=== PATIENT | male | born 1960 | race Caucasian/White ===

== ENCOUNTER 2024-01-28 17:31 | Inpatient (IN) | payer OTHER, SELFPAY ==
[2024-01-28] VITALS (24 sets, daily range): BP systolic 106–147; BP diastolic 67–107; BMI 25.8; BMI 27.0
[2024-01-28] MEDS: ADENOCARD 6 MG IV (12:09)
[2024-01-28] MEDS: CARDIZEM 20 MG IV (12:19)
--- NOTE | 2024-01-28 12:19 | ED.GENMED ---
History of Present Illness
General
Chief Complaint: Cold/Flu/URI Symptoms
Source: patient
Time Seen by Provider: 01/28/24 11:57
Travel History
Have you had any contact with someone who has COVID-19?: No
Do you have any symptoms of coronavirus? Fever > 100 degrees, chills, cough, shortness of breath, sore throat, loss of taste or smell, muscle aches, or headache?: No
History of Present Illness
History of Present Illness:
This patient is a 63-year-old male presents emergency department with complaints of cough. He developed URI symptoms a week or so ago, was put on a Z-Mauricio and inhaler on January 14 and then transition to amoxicillin which she took for 7 days, his last
dose being today. He tested positive for COVID on January 18. He continues to report a dry cough which at times makes him feel like he might pass out. He developed subjective fevers last night but not today. He notes chest discomfort only while
actually coughing. He is not actively short of breath. He denies nausea, vomiting, leg swelling, abdominal pain, back pain, headache, dizziness, or other complaints. He denies palpitations.
Past History
Past History
ED Past Medical History: HTN and Hypercholesterolemia
Social History
Tobacco: Non-smoker
Alcohol: Occasional
Drug: None
Personal:
Living: with family
Phy Exam
Physical Exam
Physical Exam:
GENERAL: Alert , in no apparent distress
EYE: pupils equal and reactive
NECK: Supple, no significant adenopathy.
ENT: o/p clr, mmm.
CARDIAC: Regular rate and rhythm, tachycardic.
LUNGS: Equal breath sounds bilaterally, no acute respiratory distress, obvious dry cough noted, speaks in full sentences easily, scattered wheezing
ABDOMEN: Soft, without focal tenderness, no r/g, no cvat
NEUROLOGICAL: Alert and oriented, no focal neuro deficits
SKIN: Warm and dry, skin intact.
MUSCULOSKELETAL: No edema, well perfused.
PSYCH: Normal and appropriate interaction.
Scores
[id number] Score for Afib Stroke Risk
Age in Years (65=0, 65-74=1, >/=75=2): <65
Sex (Female=+1): Male
Congestive Heart Failure History (Yes=+1): No
Hypertension History (Yes=+1): Yes
Stroke/TIA/Thromboembolism History (Yes=+2): No
Vascular Disease History (Yes=+1): No
Diabetes Mellitus (Yes=+1): No
Score: 1
Anticoagulation Recommendations: Consider anticoagulation (as validated in nonvalvular fib)
Course
Orders/Labs/Results
Orders:
Orders
01/28/24 11:43
Electrocardiogram (*1) Urgent
Reason for Study: Tachycardia
EKG- Treatment ONCE
01/28/24 12:06
Adenosine [Adenocard] 12 mg .ROUTE .STK-MED ONE
01/28/24 12:09
Adenosine [Adenocard] 6 mg IV NOW STA
01/28/24 12:11
Diltiazem HCl [Cardizem] 25 mg .ROUTE .STK-MED ONE
01/28/24 12:12
Diltiazem 125 mg/125 ml Nss [Cardizem] 125 mg in 125 ml .ROUTE .STK-MED
01/28/24 12:16
Cardiac Monitoring- Treatment ONCE
Diltiazem 125 mg/125 ml Nss [Cardizem] 125 mg in 125 ml IV NOW
Initial dose in mg/hr, then titrate:: 5
Titrate to keep:: Heart rate 80-100 bpm
Titrate by mg/hr:: 5 mg/hr
Frequency of titrations (minutes):: 15
Maximum dose in mg/hr:: 15
Diltiazem HCl [Cardizem] 20 mg IV NOW STA
CR Chest - 2 Views Urgent
Comment:
Reason For Exam: COUGH
Pulse Ox/cont/shift [RESP] Urgent
Quantity: 1
01/28/24 12:18
Complete Blood Count/With Diff Urgent
Comprehensive Metabolic Panel Urgent
Troponin I Urgent
01/28/24 12:23
COVID-19 Antigen Stat
Source: Nasal Swab
Lactic Acid Q4H
Comment: CANCEL 2nd LACTIC ACID IF 1st LACTIC ACID IS LESS THAN 2
Blood Culture Q30M
BLANCA Source: Blood/Venous
Specimen Description:
Influenza A+B Rapid Molecular Urgent
BLANCA Source: Nasal Swab
Specimen Description:
01/28/24 12:55
Blood Culture Q30M
BLANCA Source: Blood/Venous
Specimen Description:
01/28/24 14:01
Urinalysis Reflex To Culture Urgent
Date Specimen was Collected: 01/28/24
Time Specimen was Collected: 14:00
01/28/24 14:59
Heparin 4,000 units IV NOW STA
Nursing to Place Non Medication Order As Directed
Physician Order: PTT 6 hours after initial start of Heparin infusion
Above order entered?: Yes
01/28/24 Dinner
Cholesterol Lowering
At Your Request: Full Participation
Cholesterol Lowering: Sodium, 2 Gram
Heparin 42326 Units/250 ml 25,000 units in 250 ml IV PER PROTOCOL
Weight to be used for heparin protocol in kilograms (kg):: 81.647
Protocol:: Cardiac Tx/Acute Coronary
PTT Goal Range to be used:: PTT 73 to 111 seconds
Order type:: Initial
INITIAL Infusion Dose (UNITS/KG/hr) & then follow protocol:: 15 units/kg/hr
Infusion Dose in UNITS/hr & then follow protocol (UNITS/hr):: 1,250
INFUSION RATE in mL/hr & then follow protocol (mL/hr):: 12.5
PTT less than or equal to 64 seconds:: Increase rate by 200 units/hr (+ 2 mL/hr)
PTT 64.1 to 72.9 seconds:: Increase rate by 100 units/hr (+ 1 mL/hr)
PTT 73 to 111 seconds:: Target Range. No change in rate.
PTT 111.1 to 130.9 seconds:: Decrease rate by 100 units/hr (- 1 mL/hr)
PTT 131 to 199.9 seconds:: HOLD for 1 hr. Then decrease rate by 200 units/hr (- 2 mL/hr)
PTT greater than or equal to 200 seconds:: HOLD for 2 hrs & Notify Provider. Then decrease by 200 units/hr (-
2 mL/hr)
Lab follow-up:: Each change, PTT q6h until 2 consecutive are therapeutic. Then PTT
daily.
01/28/24 15:04
PTT Urgent
Comment: Obtain baseline before beginning heparin infusion if not already collected
01/28/24 16:36
Admit/Transfer Patient As Directed
Co-Sign Provider:
Level of Care: Inpatient admission
Assign to:: IMU- Intermediate Care
Physician / Group: Hospitalist
Diagnosis: A-flutter
Reason for Hospitalization: A-flutter - on dilt gtt.
Expected length of stay greater than two midnights?: Yes
ELOS- Estimated Length of Stay in days: 3
I certify the patient meets the requirements for IP care: Yes
01/28/24 16:37
Code Status As Directed
Resuscitation Status: Full Code
01/28/24 19:35
promethazine-DM 5 ml PO QIDPRN PRN
01/28/24 19:40
Ibuprofen [Motrin] 600 mg PO Q6H PRN
01/28/24 21:38
Electrocardiogram (*1) Q6H
Reason for Study: Chest Pain
Comment: at admission and Q3H for total of 3, to be done with each troponin
Albuterol [ProAIR HFA INHALER] 2 puff INH R Q6HPRN PRN
Diltiazem 125 mg/125 ml Nss [Cardizem] 125 mg in 125 ml IV PER PROTOCOL
Currently infusing. Continue current dose and titrate:: Yes
Titrate to keep:: Heart rate 80-100 bpm
Titrate by mg/hr:: 5 mg/hr
Frequency of titrations (minutes):: 15
Maximum dose in mg/hr:: 15
01/28/24 21:38
CARDIOLOGY CONSULT Routine
Consulting Provider: Miko Li
Was physician already notified: Yes
Reason for consult: a-flutter needing heparin and dilt gtt.
Heparin Protocol- PTT Orders As Directed
PTT per Heparin protocol: -Obtain CBC and baseline PTT - if not already collected.
-Obtain PTT 6 hours from start of infusion. Then, every 6 hours until 2 consecutive
PTT's are therapeutic. Then, PTT Daily.
-With each rate change, obtain PTT every 6 hours until 2 consecutive PTT's are
therapeutic. Then, PTT Daily.
Activity As Directed
Activity Level: With Assistance
INT (Intravenous Needle Therapy) As Directed
Comment: maintain peripheral IV access
Intake/ Output As Directed
Frequency: Per unit guidelines
Notify MD As Directed
Notify physician if: PTT is greater than or equal to 200.
Pneumatic Compression Sleeves As Directed
Type: Knee high
Vital Signs As Directed
Frequency: q4h
Weight As Directed
Frequency: Daily
DX Deep Vein Thrombosis Video Routine
01/28/24 22:00
Amlodipine [Norvasc] 5 mg PO HS
01/28/24 22:05
Glycohemoglobin (HgbA1c) Routine
PTT Urgent
Troponin I Q3H
Comment: at admit & Q3H for 3 total including ED draws, obtain ECG with each level
01/29/24 00:49
Troponin I Q3H
Comment: at admit & Q3H for 3 total including ED draws, obtain ECG with each level
01/29/24 03:38
Electrocardiogram (*1) Q6H
Reason for Study: Chest Pain
Comment: at admission and Q3H for total of 3, to be done with each troponin
01/29/24 04:02
Basic Metabolic Panel IN AM
Cardiovascular Evaluation IN AM
Complete Blood Count/No Diff IN AM
Troponin I Q3H
Comment: at admit & Q3H for 3 total including ED draws, obtain ECG with each level
01/29/24 08:00
Atorvastatin [Lipitor] 40 mg PO DAILY
01/30/24 03:41
Complete Blood Count/No Diff Q2D
Comment: notify provider: Platelet count < 130,000 or decrease by 50% from baseline
02/01/24 06:00
Complete Blood Count/No Diff Q2D
Comment: notify provider: Platelet count < 130,000 or decrease by 50% from baseline
02/03/24 06:00
Complete Blood Count/No Diff Q2D
Comment: notify provider: Platelet count < 130,000 or decrease by 50% from baseline
02/05/24 06:00
Complete Blood Count/No Diff Q2D
Comment: notify provider: Platelet count < 130,000 or decrease by 50% from baseline
02/07/24 06:00
Complete Blood Count/No Diff Q2D
Comment: notify provider: Platelet count < 130,000 or decrease by 50% from baseline
02/09/24 06:00
Complete Blood Count/No Diff Q2D
Comment: notify provider: Platelet count < 130,000 or decrease by 50% from baseline
02/11/24 06:00
Complete Blood Count/No Diff Q2D
Comment: notify provider: Platelet count < 130,000 or decrease by 50% from baseline
02/13/24 06:00
Complete Blood Count/No Diff Q2D
Comment: notify provider: Platelet count < 130,000 or decrease by 50% from baseline
Abnormal Lab Results
01/28/24
12:18
MCH 31.2 H pg
(27.0-31.0)
Absolute Monos (auto) 0.7 H 10^3/uL
(0.1-0.6)
Lymphocytes % 19.4 L %
(20.5-51.1)
Monocytes % 10.2 H %
(1.7-9.3)
Eosinophils % 7.7 H %
(0-6)
Chloride 110 H mmol/L
(98-107)
Glucose 112 H mg/dl
(70-99)
01/28/24 12:18
01/28/24 12:18
Vital Signs
Initial and Last Documented VS:
Initial Vital Signs
Temp Pulse Resp BP Pulse Ox
97.9 F 145 20 135/104 98
01/28/24 11:39 01/28/24 11:39 01/28/24 11:39 01/28/24 11:39 01/28/24 11:39
Last Documented Vital Signs
Temp Pulse Resp BP Pulse Ox
98.1 F 78 28 129/90 98
01/30/24 07:43 01/30/24 09:13 01/30/24 06:08 01/30/24 09:13 01/29/24 22:49
*Critical Care Note
Total Time (30-74mins, 75-104mins- exclusive of procedures): 35
Update Note
Update Note:
Patient presents to the Emergency Department with cough
Number and Complexity of Problems Addressed at the Encounter
� Chronic conditions affecting care:
� Acute Exacerbation and/or Progression of Chronic Illness:
� Differential Diagnosis includes: But not limited to pertussis, bronchitis, pneumonia, etc.
Amount and/or Complexity of Data to be Reviewed and Analyzed
� I performed an independent evaluation of and my interpretation is:
EKG: Tachycardic, a flutter with suspected 2-1 conduction, no acute ischemia
CT:
Xrays:
Laboratory Studies: Generally unremarkable, troponin within normal limits
Other:
� Review of other/old records reveals:
� Clinical information was obtained by an independent historian:
� Prescriptions/Medications Considered but not given:
� Further testing considered but not performed:
Risk of Complications and/or Morbidity or Mortality of Patient Management
� Social determinants of health affecting care:
� Discussion with other providers (PCP, Hospitalists, Consultants, etc): Discussed with Dr. Jama estrada
� Escalation of care including admission/observation vs risk of discharge considered: Patient given a dose of adenosine 6 mg, rhythm underlying is clearly a flutter, will begin Cardizem drip while initiating workup.
3 PM reassessment patient feeling better, interestingly his cough has resolved since we have obtain rate control with Cardizem drip. Heart rate now in the low 100s. Given [id number] is 1, will start anticoagulation here and admit to hospitalist,
[place] text sent
ED Attending Note
-
Portions of this chart may have been created with voice recognition software.� Occasional wrong word or��sound alike� substitutions may have occurred due to the inherent limitations of voice recognition software.
Discharge Plan
Departure
Patient Disposition: Admit
Date of Disposition: 01/28/24
Time of Disposition: 14:58
Presentation/result/management discussed w/ accepting MD/DO: Hospitalist
Condition: Fair
Discharge Problem:
Atrial flutter, Cough
Interventions
Interventions:
*Risk Screen - Suicide Last Done: 01/28/24 21:48
*General Assessment Last Done: 01/28/24 12:00
*Neglect/Abuse Screening Last Done: 01/28/24 12:00
ED- Fall Risk Assessment Last Done: 01/28/24 12:00
*ED COVID-19 Vaccine History Last Done: 01/28/24 21:48
*Nursing Disposition Last Done: 01/28/24 21:47
ED- Pulmonary Assessment Last Done: 01/28/24 12:16
Discharge Date and Time
Discharge Date/Time: 01/28/24 21:47
[2024-01-28] MEDS: CARDIZEM 125 IV (12:20)
[2024-01-28 12:29] LABS: % Basophils 0.9 % (0-2); % Eosinophils 7.7 % (0-6); % Immature Granulocytes 0.3 % (0-0.5); % Lymphocytes 19.4 % (20.5-51.1); % Monocytes 10.2 % (1.7-9.3); % Neutrophils 61.5 % (42.2-75.2); Absolute Basophils 0.1 10^3/uL (0-0.2); Absolute Eosinophils 0.5 10^3/uL (0-0.7); Absolute Lymphocytes 1.3 10^3/uL (1.2-3.4); Absolute Monocytes 0.7 10^3/uL (0.1-0.6); Absolute Neutrophils 4.2 10^3/uL (1.4-6.5); Hemoglobin 15.3 g/dL (13.0-18.0); Mean Corp Hgb Conc. 35.6 g/dL (33.0-37.0); Mean Corpuscular Hgb 31.2 pg (27.0-31.0); Mean Corpuscular Volume 87.8 fL (80.0-94.0); Nucleated Red Blood Cells % 0 % (-); Platelet Count 256 10^3/uL (130-400); Red Cell Dist. Width 12.2 % (11.5-14.5); White Blood Cell Count 6.8 10^3/uL (4.8-10.8)
[2024-01-28 12:54] LABS: Troponin I < 0.012 ng/ml
[2024-01-28 12:57] LABS: Lactic Acid 1.5 mmol/L (0.7-2.0)
[2024-01-28 13:05] LABS: COVID-19 Antigen Negative (Negative)
[2024-01-28 13:05] LABS: ALT (SGPT) 28 U/L (0-50); AST (SGOT) 22 U/L (17-59); Albumin 4.1 g/dl (3.5-5.0); Alkaline Phosphatase 122 U/L (38-126); Blood Urea Nitrogen 16 mg/dl (9-20); Calcium 9.5 mg/dl (8.4-10.2); Carbon Dioxide 22 mmol/L (22-30); Chloride 110 mmol/L (98-107); Estimated Creatinine Clearance 87 ml/min; Glucose 112 mg/dl (70-99); Potassium 4.2 mmol/L (3.5-5.1); Sodium 142 mmol/L (135-145); Total Bilirubin 0.7 mg/dl (0.2-1.3); Total Protein 7.2 g/dl (6.3-8.2); eGFR > 60.00
[2024-01-28 14:17] LABS: Urine Albumin Negative (Neg - Trace); Urine Bilirubin Negative (Negative); Urine Character Clear (Clear); Urine Color Yellow; Urine Glucose Negative (Negative); Urine Ketone Negative (Negative); Urine Leukocyte Negative (Negative); Urine Nitrite Negative (Negative); Urine Occult Blood Negative (Negative); Urine Specific Gravity 1.015 (<1.030); Urine Urobilinogen Negative (Neg - 1+)
[2024-01-28 15:19] LABS: APTT 28.7 Sec (23.4-35.0)
[2024-01-28] MEDS: HEPARIN 25000 UNITS/250 ML IV (15:25)
[2024-01-28] MEDS: HEPARIN 4000 UNITS IV (15:25)
--- NOTE | 2024-01-28 16:25 | HPS.HSE ---
Family Physician
-
Family Physician: Lito Johnson
Chief Complaint
-
Cough
History of Present Illness
63-year-old man comes in with a cough. He developed URI symptoms a week ago. He was put on a Z-Mauricio and inhaler, and then transitioned to amoxicillin which he took for 7 days. His last dose was today. He tested positive for COVID on January 18. His
dry cough has worsened and at times it makes him feel like he might pass out. He has chest discomfort only while coughing. No active shortness of breath and he denies nausea, vomiting, leg swelling, abdominal pain, back pain, headache, dizziness,
or other complaints. He denies palpitations. At the time of my interview, his rate had been slowed to ~100, and his cough had resolved. His diltiazem gtt was titrated a few times.
Medical History
Past Medical History
Past Medical History: Reports Other
Additional Past Medical History:
Essential HTN
Hypercholesterolemia
Past Surgical History: Reports None
Social History
Tobacco: Non-smoker
Alcohol: None
Drug: None
Family History
Family History: Not pertinent
Allergies / Home Medications
Allergies reflects when Allergies were last updated in [facility].
Home Medications with original date entered in [facility]
Allergy/Medication List:
Allergies
Allergy/AdvReac Type Severity Reaction Status Date / Time
No Known Allergies Allergy Verified 01/28/24 11:38
Home Medications
atorvastatin 40 mg tablet (Lipitor) 40 mg PO DAILY 07/05/08
albuterol sulfate 90 mcg/actuation aerosol inhaler (Ventolin HFA) 2 puff inhalation R Q6HPRN PRN sob/wheezing 01/28/24
amlodipine 5 mg tablet 5 mg PO HS 01/28/24
amoxicillin 875 mg-potassium clavulanate 125 mg tablet 1 tab PO BID 01/28/24
ibuprofen 200 mg capsule 600 mg PO Q6H PRN mild pain/fever 01/28/24
promethazine-DM 6.25 mg-15 mg/5 mL oral syrup 5 ml PO QIDPRN PRN cough 01/28/24
Review of Systems
-
History Source: Patient
A 12 point ROS was completed and negative except as noted: Yes
Physical Exam
Vital Signs
Vital Signs
Temp Pulse Resp BP Pulse Ox
97.9 F 73 22 125/82 94
01/28/24 11:39 01/28/24 16:00 01/28/24 16:00 01/28/24 16:00 01/28/24 16:00
Physical Exam
General: Well Developed, Well Nourished, No Apparent Distress, Comfortable and Conversant
HEENT: NormoCephalic, Nose Appears Normal and Ears Appear Normal
Respiratory: Clear
Cardiac: S1/S2 and Irregular Rhythm
GI: Soft
Skin: Warm and Dry; No Rash or Jaundice
Neuro: Awake, Alert, Oriented and AO x 3
Psych: Calm
Laboratory Results
-
01/28/24 12:18
01/28/24 12:18
Laboratory Results
APTT 28.7 Sec (23.4-35.0) 01/28/24 15:04
Lactic Acid Cancelled 01/28/24 16:30
Total Bilirubin 0.7 mg/dl (0.2-1.3) 01/28/24 12:18
AST 22 U/L (17-59) 01/28/24 12:18
ALT 28 U/L (0-50) 01/28/24 12:18
Alkaline Phosphatase 122 U/L (38-126) 01/28/24 12:18
Troponin I < 0.012 ng/ml 01/28/24 12:18
Data Reviewed
-
Lab Data: Labs Reviewed by me
Impression/Plan
-
IMPRESSION:
63 man with aflutter, rate of 150, now with rate of 100 on a diltiazem gtt. Cough resolved. CXR does not show failure or obvious PNA.
PLAN:
1. Aflutter. New issue, may have been cause of the cough
Continue dilt gtt - titrate as needed - thus IMU admit (or equivalent level)
Continue heparin gtt
Cardiology consult
Trend troponins
2. Recent diagnosis of covid - now covid neg (tested today)
No longer infectious
No further needs for antibiotics or covid specific care
3. Essential HTN and Hyperlipidemia
Continue home meds
Full code
VCD for DVTp
[2024-01-28] MEDS: MOTRIN 600 MG PO (20:09)
--- NOTE | 2024-01-28 20:11 | EDRN ---
RN in room to check on pt. Tele monitor shows NSR. EKG done to confirm NSR. Dr. La notified. Continue Heparin IV and Cardizem IV for now per MD. Cardizem decreased to 5mg per MD. Pt and spouse advised of above. Will continue to monitor.
[2024-01-28 22:25] LABS: APTT 54.4 Sec (23.4-35.0)
--- NOTE | 2024-01-28 22:28 | PTCARENOTE ---
Received pt from ED RN. Pt is AAOx3. NSR on the monitor. On RA O2 sat 94%, lungs clear, occ nonproductive cough. Pt uses the urinal, BRPx1. Abd round/obese/firm. Pt came up on a Cardizem gtt @ 5 mg/hr and Heparin gtt @ 1250 units/hr. Pt is laying
comfortable in bed with call hutchison in reach.
[2024-01-28 22:42] LABS: Troponin I < 0.012 ng/ml
[2024-01-28] MEDS: NORVASC 5 MG PO (22:53)
[2024-01-29] VITALS (10 sets, daily range): BP systolic 121–157; BP diastolic 77–96; BMI 27.1
[2024-01-29] MEDS: CARDIZEM 125 IV (00:49)
[2024-01-29 01:23] LABS: Troponin I < 0.012 ng/ml
[2024-01-29] MEDS: ROBITUSSIN DM 10 ML PO ×2 (03:40→21:29)
[2024-01-29 04:18] LABS: Hematocrit 40.4 % (39.0-52.0); Hemoglobin 14.6 g/dL (13.0-18.0); Mean Corp Hgb Conc. 36.1 g/dL (33.0-37.0); Mean Corpuscular Hgb 31.2 pg (27.0-31.0); Mean Corpuscular Volume 86.3 fL (80.0-94.0); Platelet Count 247 10^3/uL (130-400); Red Blood Cell Count 4.68 10^6/uL (4.70-6.10); Red Cell Dist. Width 12.1 % (11.5-14.5); White Blood Cell Count 8.1 10^3/uL (4.8-10.8)
[2024-01-29 04:33] LABS: APTT 57.3 Sec (23.4-35.0)
[2024-01-29 04:40] LABS: Blood Urea Nitrogen 13 mg/dl (9-20); Calcium 9.4 mg/dl (8.4-10.2); Carbon Dioxide 20 mmol/L (22-30); Chloride 109 mmol/L (98-107); Estimated Creatinine Clearance 98 ml/min; Glucose 112 mg/dl (70-99); HDL Cholesterol 42 mg/dl; LDL Cholesterol, Calculated 126 mg/dl; Potassium 3.9 mmol/L (3.5-5.1); Sodium 139 mmol/L (135-145); Total Cholesterol 199 mg/dl (50-199); Triglyceride 155 mg/dl (10-149); Very Low Density Lipoprotein 31 mg/dl (0-30); eGFR > 60.00
[2024-01-29 04:53] LABS: Troponin I < 0.012 ng/ml
--- NOTE | 2024-01-29 09:34 | CON.CAR ---
Addendum entered and electronically signed by Nakul Velarde MD 01/29/24 11:57:
I saw and examined the patient.
The PBX WIRE CHIEF or PA's note was reviewed and I agree with the note.
Comment: General: Well developed, well nourished in NAD.
Neck: Supple, no JVD, HJR, carotids +2 B/L, no bruits bilaterally.
Heart: Non displaced PMI, RRR, no murmurs, No S3, S4, no rubs.
Lungs: Clear to auscultation bilaterally, no wheeze, rhonchi, rubs bilaterally,
normal expiratory phase.
Abdomen: Normal bowel sounds, soft, non-tender, non-distended.
Extremities: No clubbing, cyanosis or edema bilaterally.
Neuro: Grossly nonfocal, awake, alert and oriented x3.
Ravi has a history of hypertension hyperlipidemia. He presented with cough. He recently tested positive for COVID and was on a Z-Mauricio then transition to amoxicillin. He presented with worsening cough and found to be in atrial flutter in the
140s to 150s. Of note he denies any chest pain, short of breath, or palpitations. He has spontaneously converted to sinus rhythm.
Will stop IV Cardizem and start Toprol-XL 25 mg daily. Will assess cost of Eliquis. His CHADS2 score is 1 and perhaps could stop Eliquis at some point. May consider outpatient ablation with high cure rate of atrial flutter and patient desire to
come off anticoagulation. Etiology of cough unclear and there is no obvious CHF. Will check BNP.
Original Note:
Consultation
Consultation Request
Date/Time Consultation Requested: 01/29/2024
Date/Time Consultation Performed: 01/29/2024
Requesting Provider: Dr. La
Performing Provider: Dr. Velarde
Reason for Consultation: Atrial Flutter
Medical History
-
History of Present Illness:
HPI: Ravi is a 63 year old male with PMH of hypertension and hyperlipidemia who presented to [facility] for evaluation of cough. He initially developed URI symptoms approximately one week ago and tested + for Covid 01/18. He was later put on a Z mauricio
which was then transitioned to amoxicillin. He continued to have dry cough and at times had coughing fits where he felt as though he may pass out. During these episodes of coughing, patient did note chest discomfort, however has had no pain when not
actively coughing. On arrival to ER, he was in rapid atrial flutter with HR in the 140s to 150s. He was started on cardizem gtt and spontaneously converted to SR. He remains in sinus rhythm on review of telemetry at this time. Cardiology consulted
given new atrial flutter. Cough remains his main complaint.
PMH:
HTN
HLD
Past Medical History
Past Medical History: Other (In HPI)
Social History
Tobacco: Non-Smoker
Alcohol: None
Drug: None
Personal:
Living: With Family
Employment: Employed
Family History
Family History: Reviewed & Not Pertinent
Allergies / Home Medications
Allergy/AdvReac Type Severity Reaction Status Date / Time
No Known Allergies Allergy Verified 01/28/24 11:38
�Medication �Instructions �Recorded �Confirmed �Type
atorvastatin 40 mg tablet (Lipitor) 40 mg PO DAILY High Cholesterol 07/05/08 01/28/24 History
albuterol sulfate 90 mcg/actuation 2 puff inhalation R Q6HPRN PRN 01/28/24 01/28/24 History
aerosol inhaler (Ventolin HFA) sob/wheezing
amlodipine 5 mg tablet 5 mg PO HS Blood Pressure 01/28/24 01/28/24 History
amoxicillin 875 mg-potassium 1 tab PO BID Infection 01/28/24 01/28/24 History
clavulanate 125 mg tablet
ibuprofen 200 mg capsule 600 mg PO Q6H PRN mild pain/fever 01/28/24 01/28/24 History
promethazine-DM 6.25 mg-15 mg/5 mL 5 ml PO QIDPRN PRN cough 01/28/24 01/28/24 History
oral syrup
Review of Systems
-
History Source: Patient
All other systems: Negative unless noted
Physical Exam
Vital Signs
Temp Pulse Resp BP Pulse Ox
98.1 F 66 17 139/87 95
01/29/24 07:35 01/29/24 06:00 01/29/24 06:00 01/29/24 06:00 01/29/24 06:00
Lab Results
01/29/24 04:02
01/29/24 04:02
Troponin I < 0.012 ng/ml 01/29/24 04:02
Impression / Plan
-
PCP: Dr. Johnson
Bran Mixer: None, initially seen by Dr. Velarde
Impression:
Presented with cough
Rapid atrial flutter�newly diagnosed
Recent COVID infection
HTN
HLD
Echo 01/29/2024: Study pending.
Plan:
-Presented with cough. Recently diagnosed with COVID-19 . Completed course of OP antibiotics.
-In rapid atrial flutter on arrival to ER. This is a new diagnosis. Spontaneously converted to SR with Cardizem gtt.
-Remains in SR on review of telemetry. Heart rate stable. Cardizem gtt. stopped. Will start Toprol 25 mg daily for rate control.
-On heparin for anticoagulation. [id number] score 1. Will plan to start anticoagulation with Eliquis 5 mg twice daily.
-Case management to assess cost of Eliquis.
-Echo pending 01/29/2024.
-K stable. Check TSH.
-Consider eventual ischemic evaluation and eventual sleep study. Troponin negative x2.
-Eventual EP evaluation to discuss possible ablation.
-BP stable, continue amlodipine
-LDL 126, continue lipitor 40mg daily.
HPI: Ravi is a 63 year old male with PMH of hypertension and hyperlipidemia who presented to [facility] for evaluation of cough. He initially developed URI symptoms approximately one week ago and tested + for Covid 01/18. He was later put on a Z mauricio
which was then transitioned to amoxicillin. He continued to have dry cough and at times had coughing fits where he felt as though he may pass out. During these episodes of coughing, patient did note chest discomfort, however has had no pain when not
actively coughing. On arrival to ER, he was in rapid atrial flutter with HR in the 140s to 150s. He was started on cardizem gtt and spontaneously converted to SR. He remains in sinus rhythm on review of telemetry at this time. Cardiology consulted
given new atrial flutter. Cough remains his main complaint.
Data Reviewed
-
EKG: Tracing Personally Visualized and interpreted
Radiology: Report Reviewed by me
Labs: Labs Reviewed by me
Old Records: Reviewed
[2024-01-29] MEDS: LIPITOR 40 MG PO (09:36)
[2024-01-29] MEDS: MOTRIN 600 MG PO (10:06)
[2024-01-29] MEDS: TOPROL XL 25 MG PO (10:26)
[2024-01-29 11:37] LABS: APTT 72.7 Sec (23.4-35.0)
[2024-01-29] MEDS: HEPARIN 25000 UNITS/250 ML IV (12:06)
[2024-01-29 12:10] LABS: Glycohemoglobin (HgbA1c) 5.7 % (4.0-5.6)
--- NOTE | 2024-01-29 12:53 | CM ---
Met with patient at the bedside
Case Management Consult regarding Advance Directive information completed
Pharmacy verified: [facility]
Patient reported that he and his live in a split level home; 3 steps to enter; 7 steps between floors; railings on all stairs; powder room on main floor of the home; 2nd floor bath has stall shower w/ grab bar
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
SNF/Rehab/Home Health utilization history: none
Transportation: will transport home
Plan: Discharge to home; no needs anticipated
--- NOTE | 2024-01-29 18:24 | PTCARENOTE ---
Rec'd pt this AM. Arpitam gtt d.c. PO meds given, Heparin drip will be d.c. tonight following Eliquis dosing. Pt will likely be d.c. tomorrow. Resting comfortably, vital signs stable. Remains in NSR.
--- NOTE | 2024-01-29 18:45 | W.PN.HOSP.TC ---
Addendum entered and electronically signed by Robert Quintanilla MD 01/29/24 21:26:
I saw and evaluated the patient. I reviewed the resident�s note and agree with findings and plan as documented in the resident�s note. Patient continues to have cough but improved. Full 12 point ROS reviewed and negative except as documented Exam:
Vitals reviewed in chart GEN-NAD heart RRR lungs decreased at bases abd soft LE no edema Plan:
# Aflutter
- DC cardizem gtt start toprol xl per cards
- transition heparin gtt to eliquis
- echo 01/28 - reviewed ef 55-60%
- CHADsVasc=doubt need for lifelong AC cont for now
- Cardiology input appreciated
- Trend troponin, cont to monitor on tele
- eventual possible ablation
# Recent diagnosis of Covid
- 01/18 pos- now neg
# Essential HTN
- cont amlodipine
# Hyperlipidemia
- cont atorvastatin
Full code
VCD for DVTp
Time spent coordinating care, review of plan of care with resident, review of records, med rec, consults, notes, labs, rads, d/w nursing � 54 mins
Original Note:
Today's Communication/Plan
-
- Switch heparin to apixaban.
- Possible discharge tomorrow, pending echocardiogram.
Assessment / Plan
Assessment / Plan
Assessment
Ravi Aburto, age 63, came to the emergency with worsening cough. He developed URI symptoms a week ago. He was put on a Z-Mauricio and inhaler, and then transitioned to amoxicillin which he took for 7 days. His last dose was on 01-28-24. He tested
positive for COVID on January 18. His dry cough has worsened and at times it makes him feel like he might pass out. He has chest discomfort only while coughing. No active shortness of breath and he denies nausea, vomiting, leg swelling, abdominal
pain, back pain, headache, dizziness, or other complaints. He denies palpitations. In the ED, he was found to be in rapid atrial flutter with heart rate in the 150s. Diltiazem ggt lowered it to 100s, and within normal limits, in 70s-80s today.
Impression
- Atrial flutter
- Recent COVID infection
- Post-viral cough syndrome
- Essential hypertension
- Hyperlipidemia
Plan
Atrial flutter
- Improved with diltiazem; discontinued now.
- On metoprolol for rate control.
- Stable and heart rate within normal limits now.
- Troponins negative.
- Start apixaban and stop heparin for anticoagulation; [id number] score 1.
- Echocardiogram pending.
- Eventual EP evaluation to discuss possible ablation, per cardiology.
Recent COVID infection
- Tested negative on 01-28-24.
- No further need for antimicrobials.
Suspected post-viral cough syndrome
- Likely responsible for cough.
- Controlled with guaifenesin-dextromethorphan.
Essential hypertension
- Continue amlodipine.
Hyperlipidemia
- Continue atorvastatin.
DVT prophylaxis
- Switching heparin to apixaban.
- SCD.
Code status
- Full.
Anticipated Discharge: Within 24 hours
Subjective/Interval History
-
Date of Service: January 29, 2024
Objective Data
-
Labs:
Laboratory Results
01/29/24 01/29/24
11:18 18:40
APTT 72.7 H Pending
Vital Signs:
Vital Signs
Temp Pulse Resp BP Pulse Ox
97.6 F 77 22 127/85 94
01/29/24 15:29 01/29/24 18:00 01/29/24 18:00 01/29/24 10:26 01/29/24 18:00
I&O
01/28/24 01/29/24 01/30/24
06:59 06:59 06:59
Intake Total 620 / 620
Output Total 700 / 700 875 / 875
Balance -80 / -80 -875 / -875
Review of Systems
-
History Source: Patient
Constitutional: Reports No Symptoms
EENT: Reports No Symptoms Reported
Respiratory: Reports No Symptoms
Cardiac: Reports No Symptoms
Abdomen/GI: Reports No Symptoms
Genitourinary: Reports No Symptoms
Musculoskeletal: Reports No Symptoms
Skin: Reports No Symptoms
Neuro: Reports No Symptoms
Endocrine: Reports No Symptoms
Hematologic / Lymphatic: Reports No Symptoms
Allergy / Immunology: Reports No Symptoms
Physical Exam
-
General: No Apparent Distress and Comfortable
HEENT: Normocephalic, Atraumatic, Moist Mucous Membranes and Anicteric
Respiratory: Clear to Auscultation
Cardiac: Regular Rhythm and S1/S2
GI: Soft, Nontender, Nondistended and No Hepatosplenomegaly
Genito-urinary: No Costovertebral Tender
Musculoskeletal: No Clubbing, No Cyanosis and No Edema
Skin: Warm, Dry and IV Access / Catheter Site
Neuro: Awake, Alert, Oriented and Nonfocal/Grossly Intact
Hematologic / Lymphatic: No Lymphadenopathy
Psych: Calm
[2024-01-29 19:04] LABS: APTT 107.8 Sec (23.4-35.0)
[2024-01-29] MEDS: ELIQUIS 5 MG PO (20:19)
[2024-01-29] MEDS: NORVASC 5 MG PO (21:29)
[2024-01-30] MEDS: ROBITUSSIN DM 10 ML PO (03:35)
[2024-01-30 03:43] VITALS: BMI 27.0
[2024-01-30 04:13] LABS: Hematocrit 43.7 % (39.0-52.0); Hemoglobin 14.9 g/dL (13.0-18.0); Mean Corp Hgb Conc. 34.1 g/dL (33.0-37.0); Mean Corpuscular Hgb 30.9 pg (27.0-31.0); Mean Corpuscular Volume 90.7 fL (80.0-94.0); Mean Platelet Volume 9.1 fL (7.4-10.4); Platelet Count 259 10^3/uL (130-400); Red Blood Cell Count 4.82 10^6/uL (4.70-6.10); White Blood Cell Count 7.3 10^3/uL (4.8-10.8)
[2024-01-30 04:37] LABS: Blood Urea Nitrogen 14 mg/dl (9-20); Calcium 9.6 mg/dl (8.4-10.2); Carbon Dioxide 22 mmol/L (22-30); Chloride 107 mmol/L (98-107); Estimated Creatinine Clearance 98 ml/min; Glucose 97 mg/dl (70-99); Potassium 4.3 mmol/L (3.5-5.1); Sodium 139 mmol/L (135-145); eGFR > 60.00
[2024-01-30 04:45] LABS: NT-proBNP 120 pg/ml
--- NOTE | 2024-01-30 05:07 | PTCARENOTE ---
Pt remains in NSR. C/o cough requiring PRN robitussin, see MAR. Heparin gtt d/c following eloquis dosing per MD order. Call [facility] within reach
[2024-01-30 06:08] VITALS: BP 127/83
--- NOTE | 2024-01-30 08:02 | W.PN.HOSP.TC ---
Addendum entered and electronically signed by Robert Quintanilla MD 01/31/24 00:20:
I saw and evaluated the patient. I reviewed the resident�s note and agree with findings and plan as documented in the resident�s note. cough much improved, Full 12 point ROS reviewed and negative except as documented Exam: Vitals reviewed in chart
GEN-NAD heart RRR lungs decreased at bases abd soft LE no edema Plan:
# Aflutter
- DCd cardizem gtt cont toprol xl
- transitioned heparin gtt to eliquis - no issues
- echo 01/28 - reviewed ef 55-60%
- CHADsVasc=1 doubt need for lifelong AC cont for now per cards
- Trend troponin, cont to monitor on tele
- eventual possible ablation
# Recent diagnosis of Covid
- 01/18 pos- now neg
# Essential HTN
- cont amlodipine
# Hyperlipidemia
- cont atorvastatin
Full code
VCD for DVTp
Dispo DC home
Time spent coordinating care, review of plan of care with resident, review of records, DC planning, transition of care, med rec, consults, notes, labs, rads, d/w nursing � 33 mins
Original Note:
Today's Communication/Plan
-
- Anticipated discharge today.
- Discharge on apixaban and metoprolol in addition to his prior meds.
- Follow-up regarding ablation outpatient with cardiology.
Assessment / Plan
Assessment / Plan
Assessment
Ravi Aburto, age 63, came to the emergency with worsening cough. He developed URI symptoms a week ago. He was put on a Z-Mauricio and inhaler, and then transitioned to amoxicillin which he took for 7 days. His last dose was on 01-28-24. He tested
positive for COVID on January 18. His dry cough has worsened and at times it makes him feel like he might pass out. He has chest discomfort only while coughing. No active shortness of breath and he denies nausea, vomiting, leg swelling, abdominal
pain, back pain, headache, dizziness, or other complaints. He denies palpitations. In the ED, he was found to be in rapid atrial flutter with heart rate in the 150s. Diltiazem ggt lowered it to 100s, and within normal limits, in 70s-80s since.
Impression
- Atrial flutter
- Recent COVID infection
- Post-viral cough syndrome
- Essential hypertension
- Hyperlipidemia
Plan
Atrial flutter
- Improved with diltiazem; discontinued now.
- On metoprolol for rate control.
- Stable and heart rate within normal limits now.
- Troponins negative.
- Switched to apixaban from heparin.
- [id number] score 1; unclear if he requires long-term anticoagulation.
- Echocardiogram unremarkable; LVEF 55-60%, trace MR and trace AR.
- Eventual EP evaluation to discuss possible ablation, per cardiology.
Recent COVID infection
- Tested negative on 01-28-24.
- No further need for antimicrobials.
Suspected post-viral cough syndrome
- Likely responsible for cough.
- Controlled with guaifenesin-dextromethorphan.
Essential hypertension
- Continue amlodipine.
Hyperlipidemia
- Continue atorvastatin.
DVT prophylaxis
- Switching heparin to apixaban.
- SCD.
Code status
- Full.
Anticipated Discharge: Today
Subjective/Interval History
-
Date of Service: January 30, 2024
Objective Data
-
Labs:
Laboratory Results
01/30/24
03:41
WBC 7.3
Hgb 14.9
Hct 43.7
Plt Count 259
Sodium 139
Potassium 4.3
Chloride 107
Carbon Dioxide 22
BUN 14
Creatinine 0.8
Glucose 97
Calcium 9.6
Vital Signs:
Vital Signs
Temp Pulse Resp BP Pulse Ox
98.1 F 70 28 127/83 98
01/30/24 07:43 01/30/24 06:08 01/30/24 06:08 01/30/24 06:08 01/29/24 22:49
I&O
01/29/24 01/30/24 01/31/24
06:59 06:59 06:59
Intake Total 620 / 620
Output Total 700 / 700 1225 / 1225
Balance -80 / -80 -1225 / -1225
Review of Systems
-
History Source: Patient
Constitutional: Reports No Symptoms
EENT: Reports No Symptoms Reported
Respiratory: Reports Cough
Cardiac: Reports No Symptoms
Abdomen/GI: Reports No Symptoms
Genitourinary: Reports No Symptoms
Musculoskeletal: Reports No Symptoms
Skin: Reports No Symptoms
Neuro: Reports No Symptoms
Endocrine: Reports No Symptoms
Hematologic / Lymphatic: Reports No Symptoms
Allergy / Immunology: Reports No Symptoms
Physical Exam
-
General: No Apparent Distress and Comfortable
HEENT: Normocephalic, Atraumatic, Moist Mucous Membranes and Anicteric
Respiratory: Wheezes (mild), Non Labored Respirations and Other (intermittent cough)
Cardiac: Regular Rhythm and S1/S2
GI: Soft, Nontender, Nondistended and No Hepatosplenomegaly
Genito-urinary: No Costovertebral Tender
Musculoskeletal: No Clubbing, No Cyanosis and No Edema
Skin: Warm, Dry and IV Access / Catheter Site
Neuro: Awake, Alert, Oriented and Nonfocal/Grossly Intact
Psych: Calm
--- NOTE | 2024-01-30 08:06 | W.DCSUMMARY ---
Addendum entered and electronically signed by Robert Quintanilla MD 01/31/24 00:22:
Attending Addendum:
Read reviewed and agree. See same day progress note for additional details.
Aaron Quintanilla MD
Original Note:
Documented by User: Austin Stover MD, Resident 01/30/24 17:45
Discharge Summary
Discharge Data
Date of Admission: 01/28/24
Date of Discharge: 01/30/24
-
Pending Results: No
Hospital Course
Primary discharge diagnosis:
- Atrial flutter
Secondary discharge diagnoses:
- Recent COVID infection
- Post-viral cough syndrome
- Essential hypertension
- Hyperlipidemia
Hospital course:
Ravi Aburto, age 63, came to the emergency with worsening cough on 01-28-24. He was diagnosed with an upper respiratory infection 10 days ago, and treated with azithromycin which was eventually switched to amoxicillin (last dose on 01-28-24).
He tested positive for COVID-19 while being treated on 01-19-24 (negative on 01-28-24 in the hospital). While in the emergency department, he noted palpitations and his heart rate climbed to 150s. He was found to be in atrial flutter. Other vital
signs were normal. Received diltiazem ggt and heart rate came down to 100s. He was admitted to the IMU on the drip, and his heart rate went back to normal. Diltiazem was switched to metoprolol for rate control. The cough had persisted and continued
to affect his sleep; improved after being on guaifenesin-dextromethorphan.
At the time of his discharge, he is feeling fine. Not in atrial flutter and vital signs are stable. ECG performed thrice showed normal sinus rhythm. Echocardiogram was normal and pro-BNP within normal limits. His blood work has been unremarkable
throughout the hospital stay. Continues to have cough, which might be post-viral cough syndrome. Advised to follow-up with primary for further evaluation and management. Can consider potential ablation with cardiology outpatient. Discharge on
apixaban and metoprolol in addition to his home medications. He has an albuterol inhaler; advised to use it regularly. Physical script given for guaifenesin-codeine.
Discharge Plan
-
Patient Disposition: Home (Routine Discharge)
Discharge Diagnosis/Procedures: Atrial flutter
Diet: As tolerated
Activity: As tolerated
Driving Restrictions: As prior to admission
Bathing Restrictions: None
Referrals:
Lito Johnson MD [Family Provider] -
Abran Marie DO [Active] - 03/04/24 8:20 am (You have a cardiology follow-up appointment at the [place] office to discuss ablation. Please call with questions)
Prescriptions:
New
Eliquis 5 mg Tablet
5 mg PO BID 30 Days Qty: 60 0RF
metoprolol succinate 25 mg Tablet Extended Release 24 Hr
25 mg PO DAILY 30 Days Qty: 30 0RF
Continued
atorvastatin [Lipitor] 40 MG tablet
40 mg PO DAILY
amlodipine 5 mg tablet
5 mg PO HS
albuterol sulfate [Ventolin HFA] 90 mcg/actuation HFA aerosol inhaler
2 puff INHALATION R Q6HPRN PRN (Reason: sob/wheezing)
Discontinued
promethazine-DM 6.25-15 mg/5 mL syrup
5 ml PO QIDPRN PRN (Reason: cough)
ibuprofen 200 mg Capsule
600 mg PO Q6H PRN (Reason: mild pain/fever)
amoxicillin-pot clavulanate 875-125 mg tablet
1 tab PO BID
Discharge Orders:
Discharge Patient (As Directed); Ordered 01/30/24
Ordered By: Austin Stover
Discharge Date and Time
Discharge Date/Time: 01/30/24 14:57
Print Language: PORTUGUESE

Documented by User: Robert Quintanilla MD 01/31/24 00:15
Discharge Summary
Discharge Data
Date of Admission: 01/28/24
Date of Discharge: 01/31/24
Discharge Plan
-
Patient Disposition: Home (Routine Discharge)
Discharge Diagnosis/Procedures: Atrial flutter
Diet: As tolerated
Activity: As tolerated
Driving Restrictions: As prior to admission
Bathing Restrictions: None
Referrals:
Lito Johnson MD [Family Provider] -
Abran Marie DO [Active] - 03/04/24 8:20 am (You have a cardiology follow-up appointment at the [place] office to discuss ablation. Please call with questions)
Prescriptions:
New
Eliquis 5 mg Tablet
5 mg PO BID 30 Days Qty: 60 0RF
metoprolol succinate 25 mg Tablet Extended Release 24 Hr
25 mg PO DAILY 30 Days Qty: 30 0RF
Continued
atorvastatin [Lipitor] 40 MG tablet
40 mg PO DAILY
amlodipine 5 mg tablet
5 mg PO HS
albuterol sulfate [Ventolin HFA] 90 mcg/actuation HFA aerosol inhaler
2 puff INHALATION R Q6HPRN PRN (Reason: sob/wheezing)
Discontinued
promethazine-DM 6.25-15 mg/5 mL syrup
5 ml PO QIDPRN PRN (Reason: cough)
ibuprofen 200 mg Capsule
600 mg PO Q6H PRN (Reason: mild pain/fever)
amoxicillin-pot clavulanate 875-125 mg tablet
1 tab PO BID
Discharge Orders:
Discharge Patient (As Directed); Ordered 01/30/24
Ordered By: Austin Stover
Discharge Date and Time
Discharge Date/Time: 01/30/24 14:57
Print Language: PORTUGUESE
[2024-01-30 09:06] VITALS: BP 129/90
[2024-01-30] MEDS: ELIQUIS 5 MG PO (09:13)
[2024-01-30] MEDS: LIPITOR 40 MG PO (09:13)
[2024-01-30] MEDS: TOPROL XL 25 MG PO (09:13)
--- NOTE | 2024-01-30 09:38 | CM ---
Addendum entered by Keiko Hill 01/30/24 14:13:
Plan: Discharge to Home today; no needs
will transport home
Original Note:
Case Management Consult for Eliquis cost check is completed
Per patient's pharmacy, patient's out of pocket cost is $175
[employer] will give the patient a coupon from the cereal chemist; with this coupon, patient will only pay $10.00 per month
Attending notified and acknowledged [employer]
[2024-01-30 10:00] VITALS: BP 109/83
--- NOTE | 2024-01-30 10:23 | W.PN.CARDCBS ---
Today's Communication / Plan
-
Stable cardiology status for discharge
Will set up outpatient EP evaluation to discuss ablation
Impression / Plan
-
PCP: Dr. Johnson
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 Velarde
Impression:
Presented with cough
Rapid atrial flutter�newly diagnosed
Recent COVID infection
HTN
HLD
Echo 01/29/2024: Ejection fraction 55-60%
Plan:
He remains in sinus rhythm on Toprol
Eliquis has been started [id number] score 1. Will plan to start anticoagulation with Eliquis 5 mg twice daily.
Stable cardiology status for discharge
He is reluctant to remain on blood thinners and we will have him see EP as an outpatient to discuss ablation which would have a high cure rate for atrial flutter
He continues with hacking cough which is not cardiac in etiology
HPI: Ravi is a 63 year old male with PMH of hypertension and hyperlipidemia who presented to [facility] for evaluation of cough. He initially developed URI symptoms approximately one week ago and tested + for Covid 01/18. He was later put on a Z quoc
which was then transitioned to amoxicillin. He continued to have dry cough and at times had coughing fits where he felt as though he may pass out. During these episodes of coughing, patient did note chest discomfort, however has had no pain when not
actively coughing. On arrival to ER, he was in rapid atrial flutter with HR in the 140s to 150s. He was started on cardizem gtt and spontaneously converted to SR. He remains in sinus rhythm on review of telemetry at this time. Cardiology consulted
given new atrial flutter. Cough remains his main complaint.
Progress Note - Tongue And Groove Machine Operator
Subjective
Date of Service: January 30, 2024
No complaints.
Objective
Labs:
01/30/24 03:41
01/30/24 03:41
Labs
Hgb 14.9 g/dL (13.0-18.0) 01/30/24 03:41
Hct 43.7 % (39.0-52.0) 01/30/24 03:41
Plt Count 259 10^3/uL (130-400) 01/30/24 03:41
APTT 107.8 Sec (23.4-35.0) H 01/29/24 18:40
Sodium 139 mmol/L (135-145) 01/30/24 03:41
Potassium 4.3 mmol/L (3.5-5.1) 01/30/24 03:41
BUN 14 mg/dl (9-20) 01/30/24 03:41
Creatinine 0.8 mg/dL (0.7-1.3) 01/30/24 03:41
Glucose 97 mg/dl (70-99) 01/30/24 03:41
Troponins
01/28/24 01/28/24 01/29/24
12:18 22:05 00:49
Troponin I < 0.012 < 0.012 < 0.012
01/29/24
04:02
Troponin I < 0.012
Vital Signs and I&O:
Vital Signs
Temp Pulse Resp BP Pulse Ox
98.1 F 78 28 129/90 98
01/30/24 07:43 01/30/24 09:13 01/30/24 06:08 01/30/24 09:13 01/29/24 22:49
Vital Signs
Temp Pulse Resp BP Pulse Ox
98.1 F 78 28 129/90 98
01/30/24 07:43 01/30/24 09:13 01/30/24 06:08 01/30/24 09:13 01/29/24 22:49
Intake & Output
01/28/24 01/29/24 01/30/24 01/31/24
06:59 06:59 06:59 06:59
Intake Total 620 / 620 100 / 100
Output Total 700 / 700 1225 / 1225
Balance -80 / -80 -1225 / -1225 100 / 100
Physical Exam
Physical Exam
General: Well developed, well nourished in NAD.
[2024-01-30 12:00] VITALS: BP 143/84
[2024-01-30 14:00] VITALS: BP 128/77
--- NOTE | 2024-01-30 14:37 | PTCARENOTE ---
Rec'd pt this All vital signs stable. Extensive education provided regarding medications prescribed for discharge. Pt expresses understanding.
== END 2024-01-30 14:57 | disposition home or self-care (01) | DRG 310 ==
LOC: IMU 17:31
PROVIDERS: Internal Medicine Cardiovascular Disease; Student in an Organized Health Care Education/Training Program; ADMITTING PHYSICIAN Internal Medicine; ATTENDING PHYSICIAN Family Medicine; EMERGENCY PHYSICIAN Emergency Medicine; FAMILY PHYSICIAN Internal Medicine; OTHER PHYSICIAN Internal Medicine Cardiovascular Disease
DX: I48.92 Unspecified atrial flutter (principal); I10 Essential (primary) hypertension; E78.00 Pure hypercholesterolemia, unspecified; Z11.52 Encounter for screening for COVID-19; Z79.899 Other long term (current) drug therapy; Z86.16 Personal history of COVID-19
CPT/HCPCS: 71046; 80048; 80053; 80061; 81003; 83036; 83605; 83880; 84443; 84484; 85025; 85027; 85730; 87040; 87502; 87811; 93005; 93306; 96374; 96375; 99291; J0153

== ENCOUNTER 2024-02-14 16:13 | Inpatient (IN) | payer OTHER, SELFPAY ==
[2024-02-14] VITALS (30 sets, daily range): BP systolic 94–172; BP diastolic 66–139; BMI 30.1
--- NOTE | 2024-02-14 13:37 | ED.GENMED ---
History of Present Illness
General
Chief Complaint: Heart Rate Problem
Source: patient, records and spouse
Exam Limitations: none
Time Seen by Provider: 02/14/24 13:23
Nursing documentation reviewed up to this point in time: agreed with
Travel History
Have you had any contact with someone who has COVID-19?: No
Do you have any symptoms of coronavirus? Fever > 100 degrees, chills, cough, shortness of breath, sore throat, loss of taste or smell, muscle aches, or headache?: Yes
Symptoms:: cough
History of Present Illness
History of Present Illness:
Patient is a 63-year-old male who presents to the emergency department with a heart rate in the 140s to 150s. Patient states yesterday he was okay. Patient feels the fluttering in his chest. Patient also complains of continued coughing and
shortness of breath. Patient had COVID in December and has tested negative since then. Patient continues to cough and is unable to sleep due to coughing. Patient denies fever or chills. Patient denies chest pain although feels a tightness with
breathing. Patient denies any GI or symptoms. Patient denies any leg pain or swelling. Patient has been compliant with his Eliquis. Patient took an extra metoprolol to help his heart rate.
Past History
Past History
ED Past Medical History: Arrthythmia, HTN and Hypercholesterolemia
Social History
Tobacco: Non-smoker
Alcohol: Occasional
Drug: None
Personal:
Living: with family
Review of Systems
Review of Systems
All Other Systems: ROS reviewed and negative except as documented in HPI and ROS
Constitutional: Reports fatigue and sleep disturbance; Denies fever or chills
EENT: Reports no symptoms
Respiratory: Reports cough and trouble breathing
Cardiac: Reports palpitations
ABD/GI: Reports no symptoms
: Reports no symptoms
Musculoskeletal: Reports no symptoms
Skin: Reports no symptoms
Neurological: Reports no symptoms
Hematologic/Lymphatic: Reports no symptoms
Phy Exam
Physical Exam
Physical Exam:
Physical Exam
General: mild distress, alert and appropriate, well nourished, well hydrated
HENT: Normocephalic, supple with no lymphadenopathy, no thyromegaly
Eyes: Clear sclera, conjuctiva without injection
Heart: Regular irregular regular rhythm and tachycardic rate. No S3, S4. No murmur. No NVD
Lungs: No respiratory distress, no stridor, lung sounds with scattered rhonchi and expiratory wheezing and equal bilaterally, chest wall symmetrical and nontender
Abdomen: Soft, nontender, no organomegaly, no CVA tenderness, BS good
Neuro: Alert and oriented x 3, CN II - XII intact, no motor focality, no cerebellar dysfunction
Skin: no rash
Psychiatric: well kept. interactive and cooperative
Extremities: No edema, cyanosis, tenderness, Good and equal peripheral pulses.
Course
Orders/Labs/Results
Orders:
Orders
02/14/24 13:13
Electrocardiogram (*1) Urgent
Reason for Study: Palpitations
EKG- Treatment ONCE
02/14/24 13:37
Complete Blood Count/With Diff Urgent
Comprehensive Metabolic Panel Urgent
02/14/24 13:40
Dexamethasone Sod Phosphate [Decadron] 10 mg IV NOW STA
Ipratropium/Albuterol Sulfate [Duoneb] 3 ml INH R NOW STA
CR Chest - 2 Views Urgent
Comment:
Reason For Exam: Coughing and short of breath
02/14/24 14:32
Propofol [Diprivan] 20 ml .ROUTE .STK-MED
Abnormal Lab Results
02/14/24
13:37
MCH 31.3 H pg
(27.0-31.0)
Absolute Lymphs (auto) 1.1 L 10^3/uL
(1.2-3.4)
Absolute Monos (auto) 1.3 H 10^3/uL
(0.1-0.6)
Lymphocytes % 12.4 L %
(20.5-51.1)
Monocytes % 15.2 H %
(1.7-9.3)
Chloride 108 H mmol/L
(98-107)
Carbon Dioxide 20 L mmol/L
(22-30)
BUN 8 L mg/dl
(9-20)
Glucose 109 H mg/dl
(70-99)
Alkaline Phosphatase 178 H U/L
(38-126)
02/14/24 13:37
02/14/24 13:37
Vital Signs
Initial and Last Documented VS:
Initial Vital Signs
Temp Pulse Resp BP Pulse Ox
100.3 F 83 18 119/66 95
02/14/24 13:09 02/14/24 13:09 02/14/24 13:09 02/14/24 13:09 02/14/24 13:09
Last Documented Vital Signs
Temp Pulse Resp BP Pulse Ox
100.3 F 144 15 111/84 95
02/14/24 13:09 02/14/24 14:35 02/14/24 14:35 02/14/24 14:35 02/14/24 14:35
Procedures
Cardioversion
Indication:: Afib
Performed by:: linkenheimer
Synchronized?: Yes
Energy Used: Other (started at 100, then up to 360. Would convert but not hold after 5-6 beats)
Number of attempts: 5
Successful?: No
Complications: none
ASA Risk Score: Class II
Any reaction or bad outcome to prior sedation/anesthesia?: No history of a reaction
Sedation level to be attained: deep
Chart and allergies reviewed: Yes
Patient reassessed prior to sedation: Yes
Time out completed at (validating right patient & procedure): 14:35
History of difficult intubation: No
Airway free of obstruction: Yes
Patient has a gag reflex: Yes
Patient is able to open mouth: Yes
Patient has no dentures: Yes
Patient has no loose teeth: Yes
Medication administered by Provider during Moderate Sedation: IV Propofol (mg)
Total dose administered: 120
Time drug administered: 14:35
Start Time: 14:35
Stop Time: 14:45
*Radiology
Radiology exam reviewed: radiology read reviewed (cxr nad)
*Pulse Oximetry
Patient hypoxic: no
*EKG
Interpreted by ED Provider?: Yes
EKG Intrepretation Date: 02/14/24
EKG Intrepretation Time: 14:47
Interpretation: abnormal
Comparison EKG: changes noted
Heart Rate: 151
Rate: tachycardiac
Rhythm: a-fib
[place]: normal axis
Interval: normal QT interval
QRS Pattern: normal QRS
Ischemia: non-specific ST changes
*Script Developer Interpretation
Rate: tachycardiac
Interpretation: abnormal
Heart Rate: 150
Rhythm: a-fib
*Critical Care Note
Total Time (30-74mins, 75-104mins- exclusive of procedures): Not Applicable
Update Note
Update Note:
Patient was able to be converted to sinus rhythm. Will control the rate. Believe that this is primarily due to ongoing bronchitis and will require steroids with inhalers.
ED Attending Note
-
Portions of this chart may have been created with voice recognition software.� Occasional wrong word or��sound alike� substitutions may have occurred due to the inherent limitations of voice recognition software.
Discharge Plan
Departure
Patient Disposition: Admit
Date of Disposition: 02/14/24
Time of Disposition: 14:48
Admit to: Telemetry
Admit to doctor: Hospitalist
Presentation/result/management discussed w/ accepting MD/DO: Hospitalist
Patient with high blood pressure during this ER visit?: No
Condition: Serious
Covid-19: Not Applicable
Discharge Problem:
Atrial fibrillation with rapid ventricular response, Acute bronchitis with bronchospasm, unsuccessful cardioversion
Prescriptions:
No Action
atorvastatin [Lipitor] 40 MG tablet
40 mg PO DAILY
amlodipine 5 mg tablet
5 mg PO HS
albuterol sulfate [Ventolin HFA] 90 mcg/actuation HFA aerosol inhaler
2 puff INHALATION R Q6HPRN PRN (Reason: sob/wheezing)
Eliquis 5 mg Tablet
5 mg PO BID 30 Days Qty: 60 0RF
metoprolol succinate 25 mg Tablet Extended Release 24 Hr
25 mg PO DAILY 30 Days Qty: 30 0RF
Interventions
Interventions:
*Risk Screen - Suicide Last Done: 02/14/24 13:22
*General Assessment Last Done: 02/14/24 13:09
*Neglect/Abuse Screening Last Done: 02/14/24 13:22
ED- Fall Risk Assessment Last Done: 02/14/24 13:22
*ED COVID-19 Vaccine History Last Done: 02/14/24 13:09
ED- Cardiac Assessment Last Done: 02/14/24 13:22
ED- Pulmonary Assessment Last Done: 02/14/24 13:22
Discharge Date and Time
Print Language: ALBANIAN
[2024-02-14] MEDS: DUONEB 3 ML INH (13:43)
[2024-02-14] MEDS: DECADRON 10 MG IV (13:44)
[2024-02-14 13:51] LABS: % Basophils 0.6 % (0-2); % Eosinophils 4.5 % (0-6); % Immature Granulocytes 0.5 % (0-0.5); % Lymphocytes 12.4 % (20.5-51.1); % Monocytes 15.2 % (1.7-9.3); % Neutrophils 66.8 % (42.2-75.2); Absolute Basophils 0.1 10^3/uL (0-0.2); Absolute Eosinophils 0.4 10^3/uL (0-0.7); Absolute Lymphocytes 1.1 10^3/uL (1.2-3.4); Absolute Monocytes 1.3 10^3/uL (0.1-0.6); Absolute Neutrophils 5.8 10^3/uL (1.4-6.5); Hematocrit 41.7 % (39.0-52.0); Mean Corpuscular Hgb 31.3 pg (27.0-31.0); Mean Corpuscular Volume 86.9 fL (80.0-94.0); Mean Platelet Volume 9.1 fL (7.4-10.4); Nucleated Red Blood Cells % 0 % (-); Platelet Count 253 10^3/uL (130-400); Red Cell Dist. Width 11.9 % (11.5-14.5); White Blood Cell Count 8.7 10^3/uL (4.8-10.8)
[2024-02-14 14:10] LABS: ALT (SGPT) 23 U/L (0-50); AST (SGOT) 19 U/L (17-59); Albumin 4.2 g/dl (3.5-5.0); Alkaline Phosphatase 178 U/L (38-126); Blood Urea Nitrogen 8 mg/dl (9-20); Calcium 9.5 mg/dl (8.4-10.2); Carbon Dioxide 20 mmol/L (22-30); Chloride 108 mmol/L (98-107); Glucose 109 mg/dl (70-99); Sodium 139 mmol/L (135-145); Total Bilirubin 0.8 mg/dl (0.2-1.3); Total Protein 7.6 g/dl (6.3-8.2); eGFR > 60.00
[2024-02-14] MEDS: CARDIZEM 125 IV ×2 (15:03→22:38)
[2024-02-14] MEDS: CARDIZEM 20 MG IV (15:03)
--- NOTE | 2024-02-14 15:55 | HPS.HSE ---
Addendum entered and electronically signed by Michael Lopez MD 02/14/24 16:11:
I saw and examined the patient.
The MAGNETIC RESONANCE TECHNOLOGIST's note was reviewed and I agree with the note.
Comment:
63-year-old male was recently COVID-positive and then tested negative was presenting from home with palpitation. Patient was found to be in atrial fibrillation. Unsuccessful cardioversion in the ER. Patient states of persistent cough. Denies
lower extremity edema PND orthopnea. Denies any fevers or chills.
General: Comfortable and Conversant
HEENT: Anicteric and Moist mucous membranes
Respiratory: Non Labored Respirations and Other (Coarse breath sounds bilaterally) NC 2.5L
Cardiac: S1/S2, Irregular Rhythm and Tachycardia
GI: Soft and Non Tender
Rectal: Deferred by Provider
Musculoskeletal: No Clubbing, No Cyanosis and No Edema
Skin: Warm and Dry
Neuro: Awake, Oriented and Nonfocal/grossly intact
Impression
Atrial fibrillation with rapid ventricular response
Severe cough post COVID
Primary HTN
hyperlipidemia
Pulmonary nodule since 2007-stable.
Continue Cardizem infusion for now
Continue with Eliquis
Cardiology eval
Status post 10 mg of Decadron
Start patient on duoneb prn and Pulmicort
Anticough meds
CXR negative for infiltrate.
d/w with spouse at bedside in details.
Original Note:
Family Physician
-
Family Physician: * NONE
Chief Complaint
-
Elevated Heart Rate
History of Present Illness
This is a 63 year old male with past medical history of atrial fibrillation who presents to the emergency department with symptomatic elevated heart rate. The patient reports he was checking his heart rate at home when he noticed it was fluctuating
around 145-160 with productive cough of clear/white sputum, chest pain, and shortness of breath, prompting him to present to the emergency department. The patient reports a similar episode in the hospital on 01/28/24. The patient notes he had COVID in
December and that he has been having cardiac issues since. The patient was unsuccessfully cardioverted in the emergency department. The patient denies fevers, sweats, and chills.
Medical History
Past Medical History
Past Medical History: Reports Other
Additional Past Medical History:
Paroxysmal Atrial Fibrillation
Essential Hypertension
Hyperlipidemia
Past Surgical History: Reports None
Social History
Tobacco: Non-smoker
Alcohol: None
Family History
Family History: Not pertinent
Allergies / Home Medications
Allergies reflects when Allergies were last updated in [facility].
Home Medications with original date entered in [facility]
Allergy/Medication List:
Allergies
Allergy/AdvReac Type Severity Reaction Status Date / Time
No Known Allergies Allergy Verified 02/14/24 13:13
Home Medications
atorvastatin 40 mg tablet (Lipitor) 40 mg PO HS High Cholesterol 07/05/08
albuterol sulfate 90 mcg/actuation aerosol inhaler (Ventolin HFA) 2 puff inhalation R Q6HPRN PRN sob/wheezing 01/28/24
amlodipine 5 mg tablet 5 mg PO HS Blood Pressure 01/28/24
apixaban 5 mg tablet (Eliquis) 5 mg PO BID Atrial flutter 30 days #60 tabs 01/30/24
metoprolol succinate 25 mg tablet,extended release 24 hr 25 mg PO DAILY atrial flutter 30 days #30 tabs 01/30/24
Review of Systems
-
A 12 point ROS was completed and negative except as noted: Yes
Constitutional: Denies Fever or Chills
Respiratory: Reports Cough
Cardiac: Reports See HPI
Musculoskeletal: Denies Edema
Physical Exam
Vital Signs
Vital Signs
Temp Pulse Resp BP Pulse Ox
98.3 F 105 23 115/87 94
02/14/24 15:22 02/14/24 15:45 02/14/24 15:45 02/14/24 15:30 02/14/24 15:45
Physical Exam
General: Comfortable and Conversant
HEENT: Anicteric and Moist mucous membranes
Respiratory: Non Labored Respirations and Other (Coarse breath sounds bilaterally)
Cardiac: S1/S2, Irregular Rhythm and Tachycardia
GI: Soft and Non Tender
Rectal: Deferred by Provider
Musculoskeletal: No Clubbing, No Cyanosis and No Edema
Skin: Warm and Dry
Neuro: Awake, Oriented and Nonfocal/grossly intact
Laboratory Results
-
02/14/24 13:37
02/14/24 13:37
Laboratory Results
Total Bilirubin 0.8 mg/dl (0.2-1.3) 02/14/24 13:37
AST 19 U/L (17-59) 02/14/24 13:37
ALT 23 U/L (0-50) 02/14/24 13:37
Alkaline Phosphatase 178 U/L (38-126) H 02/14/24 13:37
Data Reviewed
-
Lab Data: Labs Reviewed by me
Impression/Plan
-
Atrial Fibrillation with Rapid Ventricular Response - Unsuccessful cardioversion in ED
-Consult Cardiology
-Continue Cardizem drip
-Continue Metoprolol as prior to admission
-Continue Eliquis
Post-Viral Cough Syndrome
-Start Mucinex
-Continue nebulizers prn
-Add Robitussin AC prn severe cough
Essential Hypertension
-Continue amlodipine with hold parameters
Hyperlipidemia
-Continue Atorvastatin
DVT proph: Eliquis
Code Status: Full Code
--- NOTE | 2024-02-14 16:11 | W.PN.UPDATE ---
Update Note
Progress Note Update
for billing purpose
--- NOTE | 2024-02-14 16:11 | CON.CAR ---
Addendum entered and electronically signed by Quinn Ryan MD 02/14/24 17:23:
I saw and examined the patient.
The Sporting Goods Sales Manager's note was reviewed and I agree with the note.
Comment: 63-year-old man with ongoing cough and dyspnea over the past month related to recent COVID infection and recent admission for atrial fibrillation/flutter with rapid ventricular response, subsequently spontaneously converted to sinus rhythm
and was discharged on 01/30/2024
Now presents with worsening cough, shortness of breath and elevated heart rate. Found to be in A-fib RVR and underwent unsuccessful direct-current cardioversion x 5 in the ER.
Plan for rate control of A-fib with IV Cardizem drip, goal heart rate less than 110 bpm
Continue home p.o. metoprolol
Continue Eliquis for cardioembolic prophylaxis
May need to consider antiarrhythmic in the short term
Outpatient EP follow-up has been arranged to discuss ablation
Original Note:
Consultation
Consultation Request
Date/Time Consultation Requested: 02/14/24
Date/Time Consultation Performed: 02/14/24
Requesting Provider: Liz Oh PA-C
Performing Provider: Vera Piña PA-C for Dr. Ryan
Reason for Consultation: afib
Medical History
-
Chief Complaint: afib
History of Present Illness:
Ravi is a 63 year old male with PMH of hypertension and hyperlipidemia who had recent admission to 01/27-01/30/24 for new symptomatic aflutter in setting of recent covid infection 12/2023. He spontaneously converted to SR. He was initiated on
toprol and eliquis. He was scheduled to see EP 03/04/24 to discuss ablation. He presents back to [facility] today due to continued cough, SOB, and elevated HRs. He had taken an extra toprol dose without improvement. EKG in ER read as rapid afib. He has been
initiated on IV cardizem gtt. Cardiology consulted for eval of recurrent atrial arrhythmia. CXR without active disease of chest.
PMH:
Admission 01/27-01/30/24 for new aflutter s/p spontaneous conversion to SR
HTN
HLD
History of pulmonary nodule
Past Medical History
Past Medical History: Other (in HPI)
Past Surgical History: Orthopedic, Urological (prostatectomy) and Other (hernia repair)
Social History
Tobacco: Non-Smoker
Alcohol: None
Drug: None
Personal:
Living: With Family
Employment: Employed
Family History
Family History: Reviewed & Not Pertinent
Allergies / Home Medications
Allergy/AdvReac Type Severity Reaction Status Date / Time
No Known Allergies Allergy Verified 02/14/24 13:13
�Medication �Instructions �Recorded �Confirmed �Type
atorvastatin 40 mg tablet (Lipitor) 40 mg PO HS High Cholesterol 07/05/08 02/14/24 History
albuterol sulfate 90 mcg/actuation 2 puff inhalation R Q6HPRN PRN 01/28/24 02/14/24 History
aerosol inhaler (Ventolin HFA) sob/wheezing
amlodipine 5 mg tablet 5 mg PO HS Blood Pressure 01/28/24 02/14/24 History
apixaban 5 mg tablet (Eliquis) 5 mg PO BID Atrial flutter 30 days 01/30/24 02/14/24 Rx
#60 tabs
metoprolol succinate 25 mg 25 mg PO DAILY atrial flutter 30 01/30/24 02/14/24 Rx
tablet,extended release 24 hr days #30 tabs
Review of Systems
-
History Source: Patient and Family ( bedside helping with HPI)
All other systems: Negative unless noted
Physical Exam
Vital Signs
Temp Pulse Resp BP Pulse Ox
98.2 F 93 24 117/92 95
02/14/24 15:52 02/14/24 16:00 02/14/24 16:00 02/14/24 16:00 02/14/24 16:00
General: NAD. AAO x3
HEENT: EOMI, MMM
Skin: Warm, dry and pink. No rash
Heart: Irreg irreg
Lungs: +Coarse nonproductive cough
Abdomen: ND
Extremities: No clubbing, cyanosis, lesions or edema B/L
Neuro: No focal or lateralizing weakness
Lab Results
02/14/24 13:37
02/14/24 13:37
Impression / Plan
-
PCP: Dr. Johnson
Cardiology: Dr. Marie, scheduled for EP office visit 03/04/24
Assessment:
Atrial fibrillation with RVR
new diagnosis in ER 02/14/24
unsuccessful CV x5 with max energy 360 j in [facility] 02/14/24
Persistent cough
Recent admission for atrial flutter with spontaneous conversion to SR 01/28/24 until 01/30/24
Paroxysmal typical atrial flutter
Chronic Eliquis OAC since 01/29/24
HTN
HLD
History of pulmonary nodule
ECHO 01/29/24: EF 55-60%, trace MR, trace AR
Plan:
-Ravi is a 63 year old male with PMH of hypertension and hyperlipidemia who had recent admission to 01/27-01/30/24 for new symptomatic aflutter in setting of recent covid infection 12/2023. He spontaneously converted to SR. He was initiated on
toprol and eliquis. He was scheduled to see EP 03/04/24 to discuss ablation. He presents back to [facility] today due to continued cough, SOB, and elevated HRs. He had taken an extra toprol dose without improvement. EKG in ER read as rapid afib. He has been
initiated on IV cardizem gtt. Cardiology consulted for eval of recurrent atrial arrhythmia. CXR without active disease of chest.
-Now with Afib in RVR that failed CV in ER. Will continue rate control efforts with Cardizem gtt at 15 mg/hr overnight.
-ECG reviewed by me looks like rapid Afib
-Consider addition of AAD this admission. No previous stress test. LV wall thickness 1.0 by echo last admission. Cre 0.9
-Cont Eliquis 5 mg BID, no missed doses.
Data Reviewed
-
EKG: Tracing Personally Visualized and interpreted
Radiology: Report Reviewed by me
Medical Tests (Nuc Med, Echo etc): Report Reviewed by me
Labs: Labs Reviewed by me
Old Records: Reviewed
--- NOTE | 2024-02-14 19:46 | PTCARENOTE ---
Received patient on admission from ED via stretcher with cardizem infusing at 15mg/hr; HR 90s. Per ED RN, cardizem was started at 5mg/hr but needed to be titrated up to 10mg/hr then current 15mg/hr d/t HR. Cardioversion done x5 but unsuccessful;
redness noted at site where pads were on back and chest. Patient denies pain to site. He continues to c/o some SOB and dry cough; states he is afraid of having another 'coughing spell.' Await verification of meds from pharmacy. Remains afib on
monitor with HR 80s-90s.
[2024-02-14] MEDS: MUCINEX 600 MG PO (20:04)
[2024-02-14] MEDS: ROBITUSSIN AC 5 ML PO (20:04)
[2024-02-14] MEDS: ELIQUIS 5 MG PO (20:05)
[2024-02-14] MEDS: XOPENEX 0.63 MG INHALANT SOLUTION 0.630000000000000004 MG INH (20:54)
[2024-02-14] MEDS: LIPITOR 40 MG PO (21:52)
--- NOTE | 2024-02-14 22:55 | PTCARENOTE ---
Addendum entered by Coby Goddard RN 02/15/24 06:04:
Pt appearing to still be in Afib.
Addendum entered by Coby Goddard RN 02/15/24 05:59:
Pt Cardizem gtt now infusing at 5mg/hr, HR 70-80's occasionally going into 90's. Pt coughing lessened with Robitussin Q4.
Original Note:
Pt cardizem now infusing at 10mg/hr, Hr 80-90's
[2024-02-15] VITALS (22 sets, daily range): BP systolic 94–132; BP diastolic 63–91; BMI 30.2
[2024-02-15] MEDS: ROBITUSSIN AC 5 ML PO ×4 (00:09→19:45)
[2024-02-15] MEDS: TYLENOL 650 MG PO ×2 (00:11→10:11)
[2024-02-15 05:06] LABS: Hematocrit 39.6 % (39.0-52.0); Hemoglobin 13.6 g/dL (13.0-18.0); Mean Corp Hgb Conc. 34.3 g/dL (33.0-37.0); Mean Corpuscular Volume 90.2 fL (80.0-94.0); Mean Platelet Volume 9.5 fL (7.4-10.4); Platelet Count 241 10^3/uL (130-400); Red Blood Cell Count 4.39 10^6/uL (4.70-6.10); Red Cell Dist. Width 11.9 % (11.5-14.5); White Blood Cell Count 9.3 10^3/uL (4.8-10.8)
[2024-02-15 05:33] LABS: Blood Urea Nitrogen 15 mg/dl (9-20); Calcium 9.2 mg/dl (8.4-10.2); Carbon Dioxide 18 mmol/L (22-30); Chloride 109 mmol/L (98-107); Estimated Creatinine Clearance 100 ml/min; Glucose 151 mg/dl (70-99); Magnesium 1.9 mg/dl (1.6-2.3); Potassium 4.1 mmol/L (3.5-5.1); Sodium 137 mmol/L (135-145); eGFR > 60.00
[2024-02-15] MEDS: XOPENEX 0.63 MG INHALANT SOLUTION 0.630000000000000004 MG INH ×3 (07:37→19:32)
[2024-02-15] MEDS: TOPROL XL 25 MG PO (08:37)
[2024-02-15] MEDS: ELIQUIS 5 MG PO ×2 (08:38→19:44)
[2024-02-15] MEDS: MUCINEX 600 MG PO ×2 (08:38→19:44)
--- NOTE | 2024-02-15 08:43 | W.PN.CARDCBS ---
Addendum entered and electronically signed by Olga Metzger DO 02/15/24 16:50:
I saw and examined the patient.
The Oxyacetylene Welder's note was reviewed and I agree with the note.
Comment: Patient seen and examined in IMU. Overall feeling well but still complaining of persistent dry cough. No chest pain or pressure. No palpitations. No dizziness.
General: No acute distress, AAOX3
Neck: Negative JVD
Heart: Irregularly irregular, no murmur, positive S1/S2
Lungs: Bronchovesicular breath sounds with scattered rhonchi. No wheezes.
Abd: Positive BS, NT/ND, neg rebound/rigidity/guarding
Ext: No edema
Neuro: nonfocal
Plan:
Recurrent symptomatic atrial fibrillation new diagnosis 02/14/2024 with unsuccessful cardioversions x 5 in the ED
-Tele reviewed by me and remains in Afib.
-ECG ordered by me and QTc is 422 ms.
-Discussed antiarrhythmic therapy and outpatient consultation with the EP to discuss eventual ablation. Given multiple cardioversion attempts would not repeat cardioversion following Tikosyn load and can reevaluate as an outpatient
- Will start Tikosyn 500 mcg q 12 hours and monitor on telemetry with serial EKGs per protocol
-Cardizem gtt running at 5 mg/hr, will stop.
-Cont outpatient dose of Toprol XL 25 mg daily
-Continue uninterrupted anticoagulation
-Transfer to IVU
-Ongoing persistent postinfectious cough
-Discussed with hospitalist and consider pulmonary consult
Original Note:
Today's Communication / Plan
-
Start Tikosyn 500 mcg q 12 hours
Impression / Plan
-
PCP: Dr. Johnson
Cardiology: Dr. Marie, scheduled for EP office visit 03/04/24
Assessment:
Atrial fibrillation with RVR
new diagnosis in ER 02/14/24
unsuccessful CV x5 with max energy 360 j in [facility] 02/14/24
Persistent cough
Recent admission for atrial flutter with spontaneous conversion to SR 01/28/24 until 01/30/24
Paroxysmal typical atrial flutter
Chronic Eliquis OAC since 01/29/24
HTN
HLD
History of pulmonary nodule
ECHO 01/29/24: EF 55-60%, trace MR, trace AR
Plan:
-Tele reviewed by me and remains in Afib. ECG ordered by me and QTc is 422 ms.
-Will start Tikosyn 500 mcg q 12 hours. CrCl 116 calculated by me 02/15/24.
-Cardizem gtt running at 5 mg/hr, will stop. Cont outpatient dose of Toprol XL 25 mg daily
-Patient with ongoing cough. He was given Decadron 10 mg IV x1 in the ER 02/14/24. He has had cough since he had COVID last month. Consider Pulm consult.
HPI: Ravi is a 63 year old male with PMH of hypertension and hyperlipidemia who had recent admission to 01/27-01/30/24 for new symptomatic aflutter in setting of recent covid infection 12/2023. He spontaneously converted to SR. He was initiated on
toprol and eliquis. He was scheduled to see EP 03/04/24 to discuss ablation. He presents back to [facility] today due to continued cough, SOB, and elevated HRs. He had taken an extra toprol dose without improvement. EKG in ER read as rapid afib. He has been
initiated on IV cardizem gtt. Cardiology consulted for eval of recurrent atrial arrhythmia. CXR without active disease of chest.
Progress Note - Catheterization Laboratory Technician
Subjective
Date of Service: February 15, 2024
Ongoing cough, no palpitations
Objective
Labs:
02/15/24 04:35
02/15/24 04:35
Labs
Hgb 13.6 g/dL (13.0-18.0) 02/15/24 04:35
Hct 39.6 % (39.0-52.0) 02/15/24 04:35
Plt Count 241 10^3/uL (130-400) 02/15/24 04:35
Sodium 137 mmol/L (135-145) 02/15/24 04:35
Potassium 4.1 mmol/L (3.5-5.1) 02/15/24 04:35
BUN 15 mg/dl (9-20) 02/15/24 04:35
Creatinine 0.8 mg/dL (0.7-1.3) 02/15/24 04:35
Glucose 151 mg/dl (70-99) H 02/15/24 04:35
Vital Signs and I&O:
Vital Signs
Temp Pulse Resp BP Pulse Ox
97.6 F 96 15 115/71 98
02/15/24 03:29 02/15/24 07:44 02/15/24 07:44 02/15/24 06:00 02/15/24 07:44
Vital Signs
Temp Pulse Resp BP Pulse Ox
97.6 F 96 15 115/71 98
02/15/24 03:29 02/15/24 07:44 02/15/24 07:44 02/15/24 06:00 02/15/24 07:44
Intake & Output
02/13/24 02/14/24 02/15/24 02/16/24
06:59 06:59 06:59 06:59
Intake Total 465 / 465
Output Total 675 / 675
Balance -210 / -210
Physical Exam
Physical Exam
General: NAD. AAO x3
HEENT: EOMI
Skin: No rash
Heart: Afib on tele
Lungs: +Coarse nonproductive cough
Abdomen: ND
Extremities: No edema B/L
Neuro: No focal or lateralizing weakness
--- NOTE | 2024-02-15 10:42 | W.CARD.TIKOS ---
Initiate Tikosyn
-
I verify that the patient has not taken any verapamil (Isoptin/Calan), ketoconazole (Nizoral), cimetidine (Tagamet), trimethoprim (Trimpex), trimethoprim/sulfamethoxazole (Bactrim), megesterol (Megace), prochlorperazine (Compazine),
hydrochlorothiazide (HCTZ), dolutegravir (Tivicay) or any Class I or Class III anti-arrhythmic within the last three days
AND
I verify that the patient has not taken amiodarone within the last THREE months, or that the patient's amiodarone plasma concentration is <0.3 mcg/mL.
Creatinine 0.8 mg/dL (0.7-1.3) 02/15/24 04:35
Estimated Creat Clear 100 ml/min 02/15/24 04:35
CrCl calculated by me using actual body weight is 116
Does patient have a Ventricular Conduction Abnormality: No
I have assessed the baseline QTc interval (using QT for heart rate less than 60 bpm) and deemed the patient is appropriate for Dofetilide therapy. I understand that Tikosyn is contraindicated if the QTc is >440msec (500msec in patients with
ventricular conduction abnormalities).
Baseline QTc (in msec): 422
Ordering Physician: Olga Metzger
--- NOTE | 2024-02-15 12:20 | PTCARENOTE ---
Addendum entered by Tiana Miranda RN 02/15/24 12:40:
Vera Piña made aware and contacted IVU. Patient to be transferred to [facility]; currently on hold to give report.
Original Note:
Assumed care of patient at 11:00. Patient has new order of Tikosyn; note completed by ELISHA Marques with cardiology who ordered med. When scanning med, a pop-up appeared that stated this med can only be given on IVU, CVICU or ICU. Discussed with
Maribel Flor, nurse educator, who stated patient needs to be transferred and not to give medication until patient is moved. Patient updated. Sabattus text sent to Vera Piña. Alexus Trevino, nursing supervisor drying and softening, also aware and in contact with IVU; will
notify me when bed available.
--- NOTE | 2024-02-15 12:41 | W.PN.HOSP.TC ---
Today's Communication/Plan
-
Tikosyn protocol
Pulmonary input
Anticough meds
Tx to IVU
Assessment / Plan
Assessment / Plan
Atrial Fibrillation with Rapid Ventricular Response - Unsuccessful cardioversion in ED
-Consult Cardiology
-Plan to start patient on antiarrhythmics with Tikosyn
-Continue Metoprolol as prior to admission
-Continue Eliquis
-Monitor EKG with protocol. Transfer to [facility]
Post-Viral Cough Syndrome
-Start Mucinex
-Continue nebulizers prn
-Add Robitussin AC prn severe cough
-No active bronchospasm. Pulmonary input.
Essential Hypertension
-Hold Norvasc for now
Hyperlipidemia
-Continue Atorvastatin
Pulmonary nodule since 2007-stable.
-Pulmonary consulted for above.
DVT proph: Eliquis
Code Status: Full Code
Discussed with cardiology and pulmonary
Anticipated Discharge: > 48 hours
Subjective/Interval History
-
Date of Service: February 15, 2024
States mild improvement in cough
Remains in atrial fibrillation
On room air
Objective Data
-
Labs:
Laboratory Results
02/15/24
04:35
WBC 9.3
Hgb 13.6
Hct 39.6
Plt Count 241
Sodium 137
Potassium 4.1
Chloride 109 H
Carbon Dioxide 18 L
BUN 15
Creatinine 0.8
Glucose 151 H
Calcium 9.2
Vital Signs:
Vital Signs
Temp Pulse Resp BP Pulse Ox
98.4 F 83 22 108/83 94
02/15/24 11:26 02/15/24 12:00 02/15/24 12:00 02/15/24 12:00 02/15/24 12:00
I&O
02/14/24 02/15/24 02/16/24
06:59 06:59 06:59
Intake Total 465 / 465 240 / 240
Output Total 675 / 675 550 / 550
Balance -210 / -210 -310 / -310
--- NOTE | 2024-02-15 13:18 | PTCARENOTE ---
Patient transferred to [facility] with belongings; report given to Nupur. accompanied on transport.
[2024-02-15] MEDS: TIKOSYN 500 MCG PO (13:33)
--- NOTE | 2024-02-15 13:36 | CON.PUL ---
Consultation
Consultation Request
Date/Time Consultation Requested: 02/15/2024 - 1234
Date/Time Consultation Performed: 02/15/2024 - 1330
Requesting Provider: Dr. Lopez
Performing Provider: Dr. Mendoza
Reason for Consultation: Cough
Medical History
-
Chief Complaint: Cough + fast heart rate
History of Present Illness:
63-year-old male with a past medical history of hypertension, A-fib on Eliquis, and history of COVID-19 in December 2023 presents with severe cough. His cough began around January 15, 2024 and he was diagnosed with bronchitis and given steroids and
antibiotics by his PCP. Cough did not fully resolve so another course of antibiotics were given and he was diagnosed with COVID-19 as an outpatient setting at [facility] on around 01/21. He was hospitalized here from 01/2711/2023ue to a severe
cough and found to be in atrial flutter. He required Cardizem drip + heparin drip, and was discharged home on Eliquis and metoprolol succinate. He had tried Robitussin without improvement of his cough and unfortunately his cough continued to
worsen to the point of passing out. It is disrupting his sleep, causing abdominal discomfort as well. In the ER he was found to be in A-fib with RVR, and underwent DCCV X5 which was unsuccessful. Cardizem drip again was started and he was
admitted to the IVU for further care with cardiology consulted. Patient being started on Tikosyn. Given his severe persistent cough, pulmonary service is now consulted for additional management/recommendations.
When I saw the patient he was in bed, in no acute distress on room air breathing comfortably. He occasionally has a cough that I hear and it sounds dry. He denies any tobacco use. He has remote history of THC use but does not smoke marijuana
anymore. 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 He does some sanding and woodworking at home as a hobby but usually wears a mask. There was some recent hay that was cut around his house but his cough has been ongoing before that
happened. When I was with the patient his heart rate was 64, BP 127/78, and saturating 96% on room air. He currently denies chest pain, headache, nausea, fevers or chills.
PMhx: Hypertension, left knee OA, atrial fibrillation on Eliquis, personal history of COVID-19 in December 2023
PShx: Right knee meniscus surgery, left knee meniscus surgery, bilateral hernia repair (2007), prostatectomy
Past Medical History
Past Medical History: Other (Above as per HPI)
Past Surgical History: Other (Above as per HPI)
Social History
Tobacco: Non-smoker
Alcohol: Occasional
Drug: Other (Prior THC use while in college)
Family History
Family History: Reviewed & Not Pertinent
Allergies / Home Medications
Allergies
Allergy/AdvReac Type Severity Reaction Status Date / Time
No Known Allergies Allergy Verified 02/14/24 13:13
Home Medications
�Medication �Instructions �Recorded �Confirmed �Last Taken �Type
atorvastatin 40 mg tablet (Lipitor) 40 mg PO HS High Cholesterol 07/05/08 02/14/24 02/13/24 History
albuterol sulfate 90 mcg/actuation 2 puff inhalation R Q6HPRN PRN 01/28/24 02/14/24 Unknown History
aerosol inhaler (Ventolin HFA) sob/wheezing
amlodipine 5 mg tablet 5 mg PO HS Blood Pressure 01/28/24 02/14/24 02/13/24 History
apixaban 5 mg tablet (Eliquis) 5 mg PO BID Atrial flutter 30 days 01/30/24 02/14/24 02/14/24 10:30 Rx
#60 tabs
metoprolol succinate 25 mg 25 mg PO DAILY atrial flutter 30 01/30/24 02/14/24 02/14/24 Rx
tablet,extended release 24 hr days #30 tabs
dofetilide 500 mcg capsule 500 mcg PO Q12H Arrhythmia #60 caps 02/15/24 Unknown Rx
(Tikosyn)
Review of Systems
-
History Source: Patient
All other systems: Negative unless noted (12 point ROS performed and is negative unless mentioned above.)
Vitals / Labs / Diagnostic Testing
Vital Signs
Temp Pulse Resp BP Pulse Ox
98.4 F 87 16 124/68 95
02/15/24 11:26 02/15/24 13:10 02/15/24 13:10 02/15/24 13:10 02/15/24 13:10
Lab Data
02/15/24 04:35
02/15/24 04:35
Diagnostic Testing:
Physical Exam
-
HEENT: Normocephalic and Anicteric
Cardiovascular: S1/S2, Regular Rhythm and Peripheral Edema (Negative)
Respiratory: Clear, Wheeze (Negative), Rales (Negative) and Rhonchi (Negative)
GI: Soft, Non Distended, Non Tender and Normal Bowel Sounds
Neurology: AO x 3 and Tremors (Negative)
Skin: Warm and Dry
General: Comfortable, Chills (Negative) and Sweats (Negative)
Assessment
-
Assessment: 63-year-old male with a past medical history of hypertension, A-fib on Eliquis, and history of COVID-19 in December 2023 presents with severe cough. His cough began around January 15, 2024 and he was diagnosed with bronchitis and given steroids
and antibiotics by his PCP. Cough did not fully resolve so another course of antibiotics were given and he was diagnosed with COVID-19 as an outpatient setting at [facility] on around 01/21. He was hospitalized here from 01/2711/2023ue to a
severe cough and found to be in atrial flutter. He required Cardizem drip + heparin drip, and was discharged home on Eliquis and metoprolol succinate. He had tried Robitussin without improvement of his cough and unfortunately his cough continued
to worsen to the point of passing out. It is disrupting his sleep, causing abdominal discomfort as well. In the ER he was found to be in A-fib with RVR, and underwent DCCV X5 which was unsuccessful. Cardizem drip again was started and he was
admitted to the IVU for further care with cardiology consulted. Patient being started on Tikosyn. Given his severe persistent cough, pulmonary service is now consulted for additional management/recommendations.
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
Impression:
#Postinfectious cough likely due to recent COVID-19 (contracted December 2023)
#A-fib with RVR on Eliquis - A-flutter newly diagnosed in ER on 01/28/2024 after being testing positive for COVID-19 in December 2023
#Hyperlipidemia
#Hypertension
#Personal history of COVID-19 (diagnosed December 2023)
Plan:
- Considering he has postinfectious cough, I will start him on LABA/ICS with Symbicort 160mcg. Proper inhaler technique was reviewed at bedside. He should continue this and then also be discharged on this until symptoms resolv.
- Continue other supportive treatment with antitussives with codeine cough syrup as needed
- Would try actual honey and not just nails drop with honey as the viscous liquid coating the pharynx helps reduce the cough
- prn xopenex
- Maintain SpO2 >90-94% with supplemental O2 as needed
- Incentive spirometer encouraged
- No suspicion for pneumonia at this time; hold off on antibiotics, trend WBC and fever curve
- Rate control with goal HR<110; Tikosyn started by cardiology; trend QTc; monitor sCr
- Replete electrolytes with K>4, Mg>2
- Maintain euglycemia with goal BG >100 and <180
- DVT ppx - on Eliquis
Pulmonary service will continue to follow along. I will arrange for outpatient follow-up to assure his cough improves once he is discharged.
Total time spent today was 55 minutes for this encounter. Time includes reviewing laboratory test/imaging results, reviewing pertinent medical records, obtaining and reviewing medical history, performing an appropriate exam, ordering medications,
tests and procedures. Time also includes documentation of this encounter, coordinating patient care and communicating with other healthcare professionals. Total time does not include separately billed tests performed on this date of service.
Data:
No acute disease of the chest
--- NOTE | 2024-02-15 16:49 | CM ---
spoke to pt in room, he is prev indep, lives with his isauro 2 story home with no steps to enter. he denies any dcplanning needs or dme's. plan is for dofetilide loading, cm following.
[2024-02-15] MEDS: SILVADENE 1 APPLIC TOPICAL (17:40)
--- NOTE | 2024-02-15 18:00 | PTCARENOTE ---
Pt received from IMU for Tikosyn dosing. Pt arrived in Afib, rate in the 90's. Medicated with first dose of Tikosyn and minutes later converted to SR, rate in the 70's. Pt tolerated first dose of Tikosyn. Remains in SR, rate in the 70's.
[2024-02-15] MEDS: SYMBICORT 160/4.5 MCG INHALER 2 PUFF INH (19:32)
[2024-02-16] MEDS: TIKOSYN 500 MCG PO (00:11)
[2024-02-16] MEDS: LIPITOR 40 MG PO ×2 (00:11→23:10)
[2024-02-16] MEDS: ROBITUSSIN AC 5 ML PO ×3 (00:16→15:49)
[2024-02-16] MEDS: TYLENOL 650 MG PO ×2 (02:44→23:10)
[2024-02-16 02:47] VITALS: BP 108/70
[2024-02-16] MEDS: XOPENEX 0.63 MG INHALANT SOLUTION 0.630000000000000004 MG INH ×3 (07:13→18:11)
[2024-02-16] MEDS: SYMBICORT 160/4.5 MCG INHALER 2 PUFF INH ×2 (07:13→18:11)
[2024-02-16 07:44] VITALS: BMI 30.2
--- NOTE | 2024-02-16 07:47 | PTCARENOTE ---
Qtc after 3rd dose Tikosyn was 507. Took tylenol for a headache with relief. Slept at intervals. SR on the monitor in the 80's.
[2024-02-16 08:08] VITALS: BP 158/84
[2024-02-16] MEDS: TOPROL XL 25 MG PO (08:39)
[2024-02-16] MEDS: MUCINEX 600 MG PO ×2 (08:39→19:45)
[2024-02-16] MEDS: ELIQUIS 5 MG PO ×2 (08:39→19:45)
--- NOTE | 2024-02-16 09:21 | W.PN.PUL3 ---
Today's Communication / Plan
-
Encourage sinus parameter
Continue with Symbicort 160mcg, and continue this upon discharge until symptoms resolve
Continue Tikosyn as per cardiology - trend QTc and monitor sCr
Outpatient follow-up will be arranged
Pulmonary service will continue to briefly follow along
Assessment
-
Assessment: 63-year-old male with a past medical history of hypertension, A-fib on Eliquis, and history of COVID-19 in December 2023 presents with severe cough. His cough began around January 15, 2024 and he was diagnosed with bronchitis and given steroids
and antibiotics by his PCP. Cough did not fully resolve so another course of antibiotics were given and he was diagnosed with COVID-19 as an outpatient setting at [facility] on around 01/21. He was hospitalized here from 01/2711/2023ue to a
severe cough and found to be in atrial flutter. He required Cardizem drip + heparin drip, and was discharged home on Eliquis and metoprolol succinate. He had tried Robitussin without improvement of his cough and unfortunately his cough continued
to worsen to the point of passing out. It is disrupting his sleep, causing abdominal discomfort as well. In the ER he was found to be in A-fib with RVR, and underwent DCCV X5 which was unsuccessful. Cardizem drip again was started and he was
admitted to the IVU for further care with cardiology consulted. Patient being started on Tikosyn. Given his severe persistent cough, pulmonary service is now consulted for additional management/recommendations.
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
Impression:
#Postinfectious cough likely due to recent COVID-19 (contracted December 2023)
#A-fib with RVR on Eliquis - A-flutter newly diagnosed in ER on 01/28/2024 after being testing positive for COVID-19 in December 2023
#Hyperlipidemia
#Hypertension
#Personal history of COVID-19 (diagnosed December 2023)
Plan:
- Considering he has postinfectious cough, I started him on LABA/ICS with Symbicort 160mcg. Proper inhaler technique was reviewed at bedside. He should continue this and then also be discharged on this until symptoms resolve.
-As of 02/15 he says that his cough symptoms have markedly improved although they are still persistent. Continue inhaler as above
- Re-check CXR as he says his cough improved today but then worsened again
- Continue other supportive treatment with antitussives with codeine cough syrup as needed
- Would try actual honey and not just nails drops with honey as the viscous liquid coating the pharynx helps reduce the cough
- prn xopenex
- Maintain SpO2 >90-94% with supplemental O2 as needed
- Incentive spirometer encouraged
- No suspicion for pneumonia at this time; hold off on antibiotics, trend WBC and fever curve
- Rate control with goal HR<110; Tikosyn started by cardiology; trend QTc; monitor sCr
- Replete electrolytes with K>4, Mg>2
- Maintain euglycemia with goal BG >100 and <180
- DVT ppx - on Eliquis
Pulmonary service will continue to follow along. I will arrange for outpatient follow-up to assure his cough improves once he is discharged.
Total time spent today was 35 minutes for this encounter. Time includes reviewing laboratory test/imaging results, reviewing pertinent medical records, obtaining and reviewing medical history, performing an appropriate exam, ordering medications,
tests and procedures. Time also includes documentation of this encounter, coordinating patient care and communicating with other healthcare professionals. Total time does not include separately billed tests performed on this date of service.
Data:
No acute disease of the chest
Subjective Data
-
Date of Service:
Date of Service: February 16, 2024
Chief Complaint: Pulmonary Follow Up
Subjective:
Seen this morning. He slept well overnight for a total of 8 hours which he was very happy about. He did take the codeine cough syrup few times last night, which helps him. He is still coughing but it is improved. He denies any tickle in his
throat prior to her symptoms. He says his cough comes from his chest. Cough is dry. He denies chest pain, headache, fevers or chills.
Review of Systems
General: Other (Negative unless mentioned above)
Objective Data
Data Reviewed
Vital Signs / I&O / Oxygen:
Vital Signs
Temp Pulse Resp BP Pulse Ox
98.7 F 80 20 108/70 97
02/16/24 08:07 02/16/24 07:17 02/16/24 08:07 02/16/24 02:47 02/16/24 08:07
Intake and Output
02/15/24 02/16/24 02/17/24
06:59 06:59 06:59
Intake Total 465 / 465 240 / 240
Output Total 675 / 675 550 / 550
Balance -210 / -210 -310 / -310
SaO2 97
Physical Exam
General: Respiratory Distress (negative), Comfortable, Chills (negative) and Sweats (negative)
HEENT: Normocephalic and Anicteric
Cardiovascular: S1-S2, Regular Rhythm and Peripheral Edema (negative)
Respiratory: Wheeze (negative), Crackles (Bibasilar), Rhonchi (negative) and Non-Labored Respirations
GI: Soft, Non Distended, Non Tender and Normal Bowel Sounds
Neurology: AO x 3 and Tremors (negative)
Skin: Warm, Dry and Jaundice (negative)
Labs/Micro/Reports
Lab Data
02/15/24 04:35
02/15/24 04:35
[2024-02-16] MEDS: TIKOSYN 250 MCG PO ×2 (10:20→21:02)
--- NOTE | 2024-02-16 10:29 | W.PN.CARDCBS ---
Addendum entered and electronically signed by Olga Metzger DO 02/16/24 16:16:
I saw and examined the patient.
The Application Counselor's note was reviewed and I agree with the note.
Comment: Patient seen and examined with cardiac PA. His is present. Overall he is feeling better with slight improvement of his cough on Symbicort. No chest pain or pressure. Converted to sinus rhythm on Tikosyn.
General: No acute distress, AAOX3
Neck: Negative JVD
Heart: Regular no murmur, positive S1/S2
Lungs: Bronchovesicular breath sounds with scattered rhonchi and end expiratory wheeze right side
Abd: Positive BS, NT/ND, neg rebound/rigidity/guarding
Ext: No edema
Neuro: nonfocal
Plan:
Recurrent rapid atrial fibrillation diagnosed 02/14/2024 with unsuccessful cardioversions x 5 in the ER
-Tikosyn initiation 02/15/2024
-Conversion from atrial fibrillation to sinus rhythm on Tikosyn 02/15/2024 converted to SR 02/15/24 and was started on tikosyn.
-Will reduce Tikosyn dose to 250 mcg every 12 hours due to prolonged QTc.
-Continue telemetry monitoring and EKG protocol with Tikosyn initiation
-Continue metoprolol
-continue uninterrupted eliquis
-Consider eventual outpatient ischemic evaluation
-Has outpatient cardiac follow-up scheduled with Dr. Fraser, inside sales trainer on 03/04/2024
-Anticipate discharge home Monday after fifth dose of Tikosyn
Postinfectious cough
-Appreciate pulmonary input
-Patient started on LABA/ICS with Symbicort 160mcg while symptomatic
-Outpatient pulmonary follow-up being arranged
Original Note:
Today's Communication / Plan
-
reduce tikosyn to 250mcg Q12H
continue toprol, eliquis
treatment of cough per pulm
OP EP follow up
Impression / Plan
-
PCP: Dr. Johnson
Cardiology: Dr. Marie, scheduled for EP office visit 03/04/24
Assessment:
Atrial fibrillation with RVR
new diagnosis in ER 02/14/24
unsuccessful CV x5 with max energy 360 j in [facility] 02/14/24
Persistent cough
Recent admission for atrial flutter with spontaneous conversion to SR 01/28/24 until 01/30/24
Paroxysmal typical atrial flutter
Chronic Eliquis OAC since 01/29/24
HTN
HLD
History of pulmonary nodule
ECHO 01/29/24: EF 55-60%, trace MR, trace AR
Plan:
-he converted to SR 02/15/24 and was started on tikosyn.
-QTc increasing, 508 ms on 02/15. will reduce tikosyn dose to 250mcg Q12H and follow QTc
-continue toprol 25mg daily
-continue eliquis
-paroxysms of afib felt to be triggered by significant coughing episodes. started on symbicort yesterday with some improvement. pulm following
-likely for DC to home in AM from cardiac standpoint
-follow up with EP as scheduled 03/04
-d/w nursing
-d/w hospitalist
-d/w patient and at bedside
HPI: Ravi is a 63 year old male with PMH of hypertension and hyperlipidemia who had recent admission to 01/27-01/30/24 for new symptomatic aflutter in setting of recent covid infection 12/2023. He spontaneously converted to SR. He was initiated on
toprol and eliquis. He was scheduled to see EP 03/04/24 to discuss ablation. He presents back to [facility] today due to continued cough, SOB, and elevated HRs. He had taken an extra toprol dose without improvement. EKG in ER read as rapid afib. He has been
initiated on IV cardizem gtt. Cardiology consulted for eval of recurrent atrial arrhythmia. CXR without active disease of chest.
Progress Note - Sql Manager
Subjective
Date of Service: February 16, 2024
reports some improvement in cough. no SOB, palpitations
Objective
Labs:
02/15/24 04:35
02/15/24 04:35
Labs
Hgb 13.6 g/dL (13.0-18.0) 02/15/24 04:35
Hct 39.6 % (39.0-52.0) 02/15/24 04:35
Plt Count 241 10^3/uL (130-400) 02/15/24 04:35
Sodium 137 mmol/L (135-145) 02/15/24 04:35
Potassium 4.1 mmol/L (3.5-5.1) 02/15/24 04:35
BUN 15 mg/dl (9-20) 02/15/24 04:35
Creatinine 0.8 mg/dL (0.7-1.3) 02/15/24 04:35
Glucose 151 mg/dl (70-99) H 02/15/24 04:35
Vital Signs and I&O:
Vital Signs
Temp Pulse Resp BP Pulse Ox
98.7 F 80 20 108/70 97
02/16/24 08:07 02/16/24 07:17 02/16/24 08:07 02/16/24 02:47 02/16/24 08:07
Vital Signs
Temp Pulse Resp BP Pulse Ox
98.7 F 80 20 108/70 97
02/16/24 08:07 02/16/24 07:17 02/16/24 08:07 02/16/24 02:47 02/16/24 08:07
Intake & Output
02/14/24 02/15/24 02/16/24 02/17/24
07:59 07:59 07:59 07:59
Intake Total 465 / 465 240 / 240
Output Total 675 / 675 550 / 550
Balance -210 / -210 -310 / -310
Physical Exam
Physical Exam
GEN: No distress, awake, alert, oriented x3
HEENT: supple, anicteric, mmm, eomi
LUNGS: Few wheezes B/L
CV: Reg, S1/S2, no murmur
ABD: soft, BS+, NT/ND
EXT: No cyanosis, clubbing, edema
NEURO: Gross non-focal
SKIN: Warm, pink, dry. No rash
[2024-02-16 11:20] VITALS: BP 129/90
--- NOTE | 2024-02-16 11:56 | W.PN.HOSP.TC ---
Today's Communication/Plan
-
Tikosyn protocol
anti-cough meds prn
bmp in am
Assessment / Plan
Assessment / Plan
Atrial Fibrillation with Rapid Ventricular Response - Unsuccessful cardioversion in ED
-Consult Cardiology
-Plan to start patient on antiarrhythmics with Tikosyn
-Continue Metoprolol as prior to admission
-Continue Eliquis
-EKG with prolonged Qtc and thus Tikoysn dose decreased
Post-Viral Cough Syndrome
-Start Mucinex
-Continue nebulizers prn
-Add Robitussin AC prn severe cough
-No active bronchospasm. Symbicort
-Pulm recs-OP f/u
Essential Hypertension
-Cont norvasc
Hyperlipidemia
-Continue Atorvastatin
Pulmonary nodule since 2007-stable.
-Pulmonary consulted for above.
DVT proph: Eliquis
Code Status: Full Code
Discussed with cardiology and pulmonary
d/w with spouse at bedside
Anticipated Discharge: Within 24 hours
Subjective/Interval History
-
Date of Service: February 16, 2024
states improvement in cough
Objective Data
-
Vital Signs:
Vital Signs
Temp Pulse Resp BP Pulse Ox
97.8 F 63 20 158/84 95
02/16/24 11:20 02/16/24 11:00 02/16/24 11:20 02/16/24 08:08 02/16/24 11:20
I&O
02/15/24 02/16/24 02/17/24
06:59 06:59 06:59
Intake Total 465 / 465 240 / 240
Output Total 675 / 675 550 / 550
Balance -210 / -210 -310 / -310
Physical Exam
-
General: No Apparent Distress and Comfortable
HEENT: Normocephalic, Atraumatic, Moist Mucous Membranes and Anicteric
Respiratory: Non Labored Respirations
Cardiac: Regular Rhythm and S1/S2
GI: Soft, Nontender, Nondistended and No Hepatosplenomegaly
Genito-urinary: No Costovertebral Tender
Musculoskeletal: No Clubbing, No Cyanosis and No Edema
Skin: Warm, Dry and IV Access / Catheter Site
Neuro: Awake, Alert, Oriented and Nonfocal/Grossly Intact
Psych: Calm
[2024-02-16 15:43] VITALS: BP 131/83
--- NOTE | 2024-02-16 16:05 | CM ---
priced [facility]fetilide at [facility]ts [facility]- his copay is $10/month, it is in stock
[2024-02-16 17:56] VITALS: BMI 30.2
--- NOTE | 2024-02-16 18:07 | PTCARENOTE ---
Pt remains in SR, rate in the 60's to 80's. Continues with frequent non productive cough. Tolerating reduced dose of Tikosyn.
[2024-02-16 19:13] VITALS: BP 141/75
[2024-02-16] MEDS: TESSALON PERLES 100 MG PO (19:47)
--- NOTE | 2024-02-16 20:25 | PTCARENOTE ---
Pt rec'd at change of shift with spouse at bedside. Pt with continued harsh non productive cough. Brought to radiology for CXR. Sinus on telemetry.
[2024-02-16 23:02] VITALS: BP 131/81
[2024-02-16] MEDS: NORVASC 5 MG PO (23:10)
--- NOTE | 2024-02-16 23:38 | PTCARENOTE ---
ecg completed at 2300 2 hrs post 4th dose of Tikosyn QTc 462. pt remains in sinus.
pt c/o h/a 7 out of 10 medicated with Tylenol and ice pack. Pt stated his mother in law is being put on hospice today and it is stressing him.
[2024-02-17 05:17] VITALS: BP 146/91
[2024-02-17] MEDS: MOTRIN 400 MG PO (05:47)
[2024-02-17 05:56] LABS: Blood Urea Nitrogen 13 mg/dl (9-20); Calcium 8.8 mg/dl (8.4-10.2); Carbon Dioxide 26 mmol/L (22-30); Chloride 108 mmol/L (98-107); Estimated Creatinine Clearance 89 ml/min; Glucose 91 mg/dl (70-99); Potassium 3.8 mmol/L (3.5-5.1); Sodium 141 mmol/L (135-145); eGFR > 60.00
--- NOTE | 2024-02-17 06:06 | PTCARENOTE ---
Pt with c/o 7 out of 10 h/a. denies hx of migraines. no other pain noted. 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
[2024-02-17 06:48] VITALS: BMI 30.2
[2024-02-17 07:03] VITALS: BP 124/80
[2024-02-17 07:05] VITALS: BP 130/78
[2024-02-17] MEDS: XOPENEX 0.63 MG INHALANT SOLUTION 0.630000000000000004 MG INH ×2 (07:23→13:46)
[2024-02-17] MEDS: SYMBICORT 160/4.5 MCG INHALER 2 PUFF INH (07:23)
--- NOTE | 2024-02-17 08:03 | W.PN.CARDCBS ---
Addendum entered and electronically signed by Olga Metzger DO 02/17/24 14:40:
I saw and examined the patient.
The Promotions Assistant Sales Marketing's note was reviewed and I agree with the note.
Comment: Patient seen and examined ambulating in room and feeling well. Denies chest pain or palpitations. Denies lightheadedness. Still with cough but slightly improved.
GEN: NAD on RA
HEENT: mmm
LUNGS: CTA B/L
CV: Reg, S1/S2, no murmur
ABD: soft, BS+, NT/ND
EXT: No edema
Plan:
Recurrent symptomatic atrial fibrillation initially diagnosed 02/14/2024
-Multiple failed cardioversions attempts in the emergency department 02/14/2024
-Chemical conversion to SR 02/15/24 after Tikosyn initiation
-QTc improved by my review of EKG completed 02/15 @2300. on Tikosyn 250 mcg every 12 hours
-EKG after fifth dose of Tikosyn with stable QTc
-Continue Toprol 25 mg daily
-Continue uninterrupted Eliquis
-Stable for discharge home with outpatient EP follow-up as scheduled
Original Note:
Today's Communication / Plan
-
continue tikosyn 250mcg Q12H, toprol 25mg daily, eliquis 5mg BID
OP EP follow up arranged
continue pulm treatment
will plan to sign off
Impression / Plan
-
PCP: Dr. Johnson
Cardiology: Dr. Marie, scheduled for EP office visit 03/04/24
Assessment:
Atrial fibrillation with RVR
new diagnosis in ER 02/14/24
unsuccessful CV x5 with max energy 360 j in [facility] 02/14/24
Persistent cough
Recent admission for atrial flutter with spontaneous conversion to SR 01/28/24 until 01/30/24
Paroxysmal typical atrial flutter
Chronic Eliquis OAC since 01/29/24
HTN
HLD
History of pulmonary nodule
ECHO 01/29/24: EF 55-60%, trace MR, trace AR
Plan:
-he converted to SR 02/15/24 and was started on tikosyn.
-QTc improved by my review of EKG completed 02/15 @2300. on Tikosyn 250 mcg every 12 hours
-For fifth dose this morning and if QTc stable, okay for discharge to home today from cardiac standpoint
-Continue Toprol 25 mg daily
-Continue Eliquis
-paroxysms of afib felt to be triggered by significant coughing episodes. started on symbicort yesterday with some improvement. pulm following
-follow up with EP as scheduled 03/04
HPI: Ravi is a 63 year old male with PMH of hypertension and hyperlipidemia who had recent admission to 01/27-01/30/24 for new symptomatic aflutter in setting of recent covid infection 12/2023. He spontaneously converted to SR. He was initiated on
toprol and eliquis. He was scheduled to see EP 03/04/24 to discuss ablation. [facility] due to continued cough, SOB, and elevated HRs. He had taken an extra toprol dose without improvement. EKG in ER read as rapid afib. He has been
initiated on IV cardizem gtt. Cardiology consulted for eval of recurrent atrial arrhythmia. CXR without active disease of chest.
Progress Note - Enterprise Application Architect
Subjective
Date of Service: February 17, 2024
reports some continued cough, SOB.
Objective
Labs:
02/15/24 04:35
02/17/24 05:25
Labs
Hgb 13.6 g/dL (13.0-18.0) 02/15/24 04:35
Hct 39.6 % (39.0-52.0) 02/15/24 04:35
Plt Count 241 10^3/uL (130-400) 02/15/24 04:35
Sodium 141 mmol/L (135-145) 02/17/24 05:25
Potassium 3.8 mmol/L (3.5-5.1) 02/17/24 05:25
BUN 13 mg/dl (9-20) 02/17/24 05:25
Creatinine 0.9 mg/dL (0.7-1.3) 02/17/24 05:25
Glucose 91 mg/dl (70-99) 02/17/24 05:25
Vital Signs and I&O:
Vital Signs
Temp Pulse Resp BP Pulse Ox
97.6 F 71 16 130/78 92
02/17/24 07:03 02/17/24 07:25 02/17/24 07:25 02/17/24 07:05 02/17/24 07:25
Vital Signs
Temp Pulse Resp BP Pulse Ox
97.6 F 71 16 130/78 92
02/17/24 07:03 02/17/24 07:25 02/17/24 07:25 02/17/24 07:05 02/17/24 07:25
Intake & Output
02/15/24 02/16/24 02/17/24 02/18/24
07:59 07:59 07:59 07:59
Intake Total 465 / 465 240 / 240 480 / 480
Output Total 675 / 675 550 / 550
Balance -210 / -210 -310 / -310 480 / 480
Physical Exam
Physical Exam
GEN: No distress, awake, alert, oriented x3
HEENT: supple, anicteric, mmm, eomi
LUNGS: CTA B/L
CV: Reg, S1/S2, no murmur
ABD: soft, BS+, NT/ND
EXT: No cyanosis, clubbing, edema
NEURO: Gross non-focal
SKIN: Warm, pink, dry. No rash
[2024-02-17] MEDS: MUCINEX 600 MG PO (08:05)
[2024-02-17] MEDS: TIKOSYN 250 MCG PO (08:05)
[2024-02-17] MEDS: ELIQUIS 5 MG PO (08:05)
[2024-02-17] MEDS: TESSALON PERLES 100 MG PO (08:05)
[2024-02-17] MEDS: TOPROL XL 25 MG PO (08:05)
[2024-02-17 11:27] VITALS: BP 124/81
[2024-02-17] MEDS: TYLENOL 650 MG PO (12:11)
--- NOTE | 2024-02-17 12:26 | W.PN.HOSP.TC ---
Today's Communication/Plan
-
Dispo-plan for tentative dc pending cards recs
Assessment / Plan
Assessment / Plan
Atrial Fibrillation with Rapid Ventricular Response - Unsuccessful cardioversion in ED
-Consult Cardiology
-Plan to start patient on antiarrhythmics with Tikosyn
-Continue Metoprolol as prior to admission
-Continue Eliquis
-\\Tikoysn dose decreased. Remains in NSR. Completed loading dose protocol. Await cards recs
Post-Viral Cough Syndrome
-Start Mucinex
-Continue nebulizers prn
-Add Robitussin AC prn severe cough
-No active bronchospasm. Symbicort
-Pulm recs-OP f/u
Essential Hypertension
-Cont norvasc
Hyperlipidemia
-Continue Atorvastatin
Pulmonary nodule since 2007-stable.
-Pulmonary consulted for above.
DVT proph: Eliquis
Code Status: Full Code
Dispo-plan for tentative dc pending cards recs
More than 30 minutes spent in discharge including
Final examination of the patient
Summarizing hospital stay
Instructions for continuing care to all relevant caregivers
Preparation of discharge records, prescriptions, and referral forms
Total time spent (in minutes): 52
Anticipated Discharge: Today
Subjective/Interval History
-
Date of Service: February 17, 2024
Feeling better. Heart rate controlled.
Objective Data
-
Labs:
Laboratory Results
02/17/24
05:25
Sodium 141
Potassium 3.8
Chloride 108 H
Carbon Dioxide 26
BUN 13
Creatinine 0.9
Glucose 91
Calcium 8.8
Vital Signs:
Vital Signs
Temp Pulse Resp BP Pulse Ox
99.1 F 75 20 130/78 95
02/17/24 11:27 02/17/24 08:05 02/17/24 11:27 02/17/24 08:05 02/17/24 11:27
I&O
02/16/24 02/17/24 02/18/24
06:59 06:59 06:59
Intake Total 240 / 240 480 / 480
Output Total 550 / 550
Balance -310 / -310 480 / 480
Physical Exam
-
General: No Apparent Distress and Comfortable
HEENT: Normocephalic, Atraumatic, Moist Mucous Membranes and Anicteric
Respiratory: Non Labored Respirations
Cardiac: Regular Rhythm and S1/S2
GI: Soft, Nontender, Nondistended and No Hepatosplenomegaly
Genito-urinary: No Costovertebral Tender
Musculoskeletal: No Clubbing, No Cyanosis and No Edema
Skin: Warm, Dry and IV Access / Catheter Site
Neuro: Awake, Alert, Oriented and Nonfocal/Grossly Intact
Psych: Calm
--- NOTE | 2024-02-17 13:15 | PTCARENOTE ---
Pt is AOx3, complains of 7/10 headache this shift, given prn tylenol per pt request. Independent OOB. Tikosyn given as ordered. 2 hour post EKG obtained. Call hutchison within reach.
--- NOTE | 2024-02-17 14:16 | W.DCSUMMARY ---
Discharge Summary
Discharge Data
Date of Admission: 02/14/24
Date of Discharge: 02/17/24
-
Pending Results: No
Hospital Course
63-year-old male with past med history of hypertension, hyperlipidemia, recent COVID infection, atrial fibrillation who is presenting from home with severe cough. Patient was found to be in symptomatic atrial fibrillation with rapid ventricular
response. Cardioversion was unsuccessful in the ER. Patient was complaining of multiple episode of severe coughing episode. Patient was recently diagnosed with COVID. Patient was started on Cardizem infusion. Patient heart rate slowed down and
plan was to start patient on antiarrhythmics with Tikosyn. Patient was started on Tikosyn protocol. Pulmonary was consulted patient was started on Symbicort. Bronchodilators were started as needed. Patient cough started to slowly improve.
Patient QTc was prolonged and Tikosyn dose was reduced to 250 mcg every 12. Patient was feeling better. Patient finished Tikosyn loading dose protocol be discharged home with outpatient follow-up with pad machine offbearer and pulmonary.
Discharge Plan
-
Patient Disposition: Home (Routine Discharge)
Discharge Diagnosis/Procedures: Atrial Fibrillation with Rapid Ventricular Response - Unsuccessful cardioversion in ED
Post-Viral Cough Syndrome
Condition: Fair
Diet: Regular
Activity: As tolerated
Driving Restrictions: As prior to admission
Referrals:
Alon Mendoza MD [Active] - in three to four weeks
Lito Johnson MD [Family Provider] - in less than 1 week
Abran Marie DO [Active] - 03/04/24 8:20 am (You have an appt to see Dr. Marie at [facility] on 03/04/24 at 8:20 AM. Please call [phone] if you need to reschedule.)
Prescriptions:
New
budesonide-formoterol [Symbicort] 160-4.5 mcg/actuation Hfa Aerosol Inhaler
2 puff inhalation R BID 30 Days Qty: 10.2 0RF
dofetilide 250 mcg Capsule
250 mcg PO Q12 30 Days Qty: 60 0RF
benzonatate 200 mg capsule
200 mg PO BID Qty: 20 0RF
famotidine [Pepcid] 20 mg tablet
20 mg PO DAILY Qty: 30 0RF
levalbuterol tartrate [Xopenex HFA] 45 mcg/actuation HFA aerosol inhaler
2 inh inhalation Q6H PRN (Reason: cough) Qty: 15 0RF
Continued
atorvastatin [Lipitor] 40 MG tablet
40 mg PO HS
amlodipine 5 mg tablet
5 mg PO HS
Eliquis 5 mg Tablet
5 mg PO BID 30 Days Qty: 60 0RF
metoprolol succinate 25 mg Tablet Extended Release 24 Hr
25 mg PO DAILY 30 Days Qty: 30 0RF
Discontinued
albuterol sulfate [Ventolin HFA] 90 mcg/actuation HFA aerosol inhaler
2 puff INHALATION R Q6HPRN PRN (Reason: sob/wheezing)
Discharge Orders:
Discharge Patient (As Directed); Ordered 02/17/24
Ordered By: Micahel Lopez
Care Plan Goals
Care Plan Goals:
Problem: Readiness for enhanced knowledge related to diagnosis and treatment plan
Goal: Understand your diagnosis and treatment plan needs, including medications if applicable.
Instructions: Know your diagnosis, underlying causes and treatment plan options, including medications if applicable. Consult with your health care team to learn about your diagnosis and treatment plan, including medications if applicable.
Discharge Date and Time
Print Language: ROMANSH
--- NOTE | 2024-02-17 14:24 | W.PN.PUL3 ---
Today's Communication / Plan
-
Symbicort
Benzonatate
D/c codeine syrup
Start famotidine
BCMA follow up
No objection to d/c
Reconsult prn
Assessment
-
Assessment: 63-year-old male with a past medical history of hypertension, A-fib on Eliquis, and history of COVID-19 in December 2023 presents with severe cough. His cough began around January 15, 2024 and he was diagnosed with bronchitis and given steroids
and antibiotics by his PCP. Cough did not fully resolve so another course of antibiotics were given and he was diagnosed with COVID-19 as an outpatient setting at [place] on around 01/21. He was hospitalized here from 01/2711/2023ue to a
severe cough and found to be in atrial flutter. He required Cardizem drip + heparin drip, and was discharged home on Eliquis and metoprolol succinate. He had tried Robitussin without improvement of his cough and unfortunately his cough continued
to worsen to the point of passing out. It is disrupting his sleep, causing abdominal discomfort as well. In the ER he was found to be in A-fib with RVR, and underwent DCCV X5 which was unsuccessful. Cardizem drip again was started and he was
admitted to the IVU for further care with cardiology consulted. Patient being started on Tikosyn. Given his severe persistent cough, pulmonary service is now consulted for additional management/recommendations.
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
Impression:
#Postinfectious cough likely due to recent COVID-19 (contracted December 2023)
#A-fib with RVR on Eliquis - A-flutter newly diagnosed in ER on 01/28/2024 after being testing positive for COVID-19 in December 2023
#Hyperlipidemia
#Hypertension
#Personal history of COVID-19 (diagnosed December 2023)
Chronic reflux
Plan:
- Suspected postinfectious cough syndrome
Started him on LABA/ICS with Symbicort 160mcg. Presented symptomatic improvement
He should continue this and then also be discharged on this until symptoms resolve and/or seen at [facility].
-As of 02/15- he says that his cough symptoms have markedly improved
- Re-check CXR 02-15 with no infiltrates
- Continue other supportive treatment with antitussives with codeine cough syrup as needed while inpatient. D/c codeine syrup upon d/c. Can continue benzonatate prn for next 5 d
- Continue honey and not just nails drops with honey as the viscous liquid coating the pharynx helps reduce the cough
- prn xopenex nebs, will need nebulizer prescription upon d/c
- Maintain SpO2 >90-94% with supplemental O2 as needed
- Incentive spirometer encouraged
- No suspicion for pneumonia at this time; observing off atbs
Chronic intermittent reflux: on OTC famotidine biw
Start famotidine at 10 mg bid and continue for 2-3 m to assess response of reflux and effect on cough
- Rate control with goal HR<110; Tikosyn started by cardiology; trend QTc; monitor sCr
- Replete electrolytes with K>4, Mg>2
- Maintain euglycemia with goal BG >100 and <180
- DVT ppx - on Eliquis
D/w Mr Aburto, all questions answered
TT Dr Lopez
No objection to d/c, reconsult prn
Data:
CXRs: No acute disease of the chest
Subjective Data
-
Date of Service:
Date of Service: February 17, 2024
Chief Complaint: Pulmonary Follow Up
Subjective:
No major events reported o/n
Improved in current inpatient regimen for subacute cough
Takes famotidine OTC biw for chronic reflux for last 3-4 y
Review of Systems
General: Fever (n), Sweats (n), Chills (n) and Satisfactory Appetite
HEENT: Epistaxis (n) and Dysphagia (n)
Cardiopulmonary: Cough, Wheezing (n), Chest Pain (n) and Edema (n)
GI: Abdominal Pain (n), Nausea (n), Vomiting (n) and Other (reflux)
Neuro: Weakness (n)
Objective Data
Data Reviewed
Vital Signs / I&O / Oxygen:
Vital Signs
Temp Pulse Resp BP Pulse Ox
99.1 F 97 18 124/81 94
02/17/24 11:27 02/17/24 13:47 02/17/24 13:47 02/17/24 11:27 02/17/24 13:47
Intake and Output
02/16/24 02/17/24 02/18/24
06:59 06:59 06:59
Intake Total 240 / 240 480 / 480
Output Total 550 / 550
Balance -310 / -310 480 / 480
SaO2 94
Nasal Cannula flow liters per 98
minute
Physical Exam
General: Respiratory Distress (negative), Comfortable, Chills (negative) and Sweats (negative)
HEENT: Normocephalic, Anicteric, Moist Mucous Membranes and Thrush (n)
Cardiovascular: S1-S2, Regular Rhythm and Peripheral Edema (negative)
Respiratory: Wheeze (negative), Crackles (Bibasilar), Rhonchi (negative), Non-Labored Respirations and Stridor (n)
GI: Soft, Non Distended, Non Tender and Normal Bowel Sounds
Neurology: Awake, AO x 3 and No Motor Deficits
Skin: Warm, Dry and Jaundice (negative)
Labs/Micro/Reports
Lab Data
02/15/24 04:35
02/17/24 05:25
[2024-02-17 15:19] VITALS: BP 117/71
== END 2024-02-17 17:07 | disposition home or self-care (01) | DRG 310 ==
LOC: IVU 16:13
PROVIDERS: Physician Assistant Medical; ADMITTING PHYSICIAN Hospitalist; CONSULT PHYSICIAN Internal Medicine Cardiovascular Disease; CONSULT PHYSICIAN Internal Medicine Critical Care Medicine; EMERGENCY PHYSICIAN Emergency Medicine; FAMILY PHYSICIAN Internal Medicine
PROC: 3E033RZ Introduction of Antiarrhythmic into Peripheral Vein, Percutaneous Approach (ICD-10-PCS; 2024-02-14)
DX: I48.0 Paroxysmal atrial fibrillation (principal); I10 Essential (primary) hypertension; E78.5 Hyperlipidemia, unspecified; R05.3 Chronic cough; I48.92 Unspecified atrial flutter; Z79.01 Long term (current) use of anticoagulants; Z86.16 Personal history of COVID-19
CPT/HCPCS: 71046; 80048; 80053; 83735; 85025; 85027; 92960; 93005; 94640; 96365; 96366; 96375; 99152; 99285

== ENCOUNTER 2024-02-18 14:16 | Emergency (ER) | payer OTHER, SELFPAY ==
[2024-02-18 14:34] VITALS: BP 122/80
[2024-02-18 14:59] VITALS: BMI 26.9
[2024-02-18 15:03] VITALS: BP 103/71
[2024-02-18 15:28] LABS: % Basophils 0.7 % (0-2); % Eosinophils 6.8 % (0-6); % Immature Granulocytes 0.6 % (0-0.5); % Lymphocytes 17.8 % (20.5-51.1); % Monocytes 11.3 % (1.7-9.3); % Neutrophils 62.8 % (42.2-75.2); Absolute Basophils 0.1 10^3/uL (0-0.2); Absolute Eosinophils 0.6 10^3/uL (0-0.7); Absolute Immature Granulocytes 0.1 10^3/uL (0-0.05); Absolute Lymphocytes 1.5 10^3/uL (1.2-3.4); Absolute Neutrophils 5.4 10^3/uL (1.4-6.5); Hemoglobin 14.5 g/dL (13.0-18.0); Mean Corp Hgb Conc. 35.4 g/dL (33.0-37.0); Mean Corpuscular Volume 93.4 fL (80.0-94.0); Mean Platelet Volume 9.1 fL (7.4-10.4); Nucleated Red Blood Cells % 0 % (-); Platelet Count 246 10^3/uL (130-400); Red Blood Cell Count 4.39 10^6/uL (4.70-6.10); White Blood Cell Count 8.6 10^3/uL (4.8-10.8)
[2024-02-18 15:36] LABS: APTT 28.9 Sec (23.4-35.0); INR 1.38; PT 16.8 Sec (11.4-14.6)
[2024-02-18 15:46] LABS: ALT (SGPT) 54 U/L (0-50); AST (SGOT) 48 U/L (17-59); Albumin 3.6 g/dl (3.5-5.0); Alkaline Phosphatase 149 U/L (38-126); Blood Urea Nitrogen 14 mg/dl (9-20); Calcium 9.2 mg/dl (8.4-10.2); Carbon Dioxide 20 mmol/L (22-30); Chloride 107 mmol/L (98-107); Estimated Creatinine Clearance 87 ml/min; Glucose 105 mg/dl (70-99); Potassium 3.9 mmol/L (3.5-5.1); Sodium 138 mmol/L (135-145); Total Bilirubin 0.5 mg/dl (0.2-1.3); Total Protein 6.8 g/dl (6.3-8.2); eGFR > 60.00
[2024-02-18 15:50] LABS: Troponin I < 0.012 ng/ml
[2024-02-18 16:00] VITALS: BP 118/83
--- NOTE | 2024-02-18 16:55 | ED.GENMED ---
History of Present Illness
General
Chief Complaint: Heart Rate Problem
Source: patient
Exam Limitations: none
Time Seen by Provider: 02/18/24 16:06
Nursing documentation reviewed up to this point in time: agreed with
History of Present Illness
History of Present Illness:
63-year-old male presents emergency room complaining of atrial fibrillation
Past History
Past History
ED Past Medical History: Arrthythmia, HTN and Hypercholesterolemia
ED Past Surgical History: Orthopedic (knee), Urological (prostatectomy) and Other (bilateral hernia repair)
Social History
Tobacco: Non-smoker
Alcohol: Occasional
Drug: None
Personal:
Living: with family
Review of Systems
Review of Systems
Allergies reviewed?: Yes
All Other Systems: Not applicable
Constitutional: Reports no symptoms
EENT: Reports no symptoms
Respiratory: Reports no symptoms
Cardiac: Reports palpitations
ABD/GI: Reports no symptoms
: Reports no symptoms
Musculoskeletal: Reports no symptoms
Skin: Reports no symptoms
Neurological: Reports no symptoms
Endocrine: Reports no symptoms
Hematologic/Lymphatic: Reports no symptoms
Psychiatric: Reports no symptoms
Phy Exam
Physical Exam
Physical Exam:
Physical Exam
General: no apparent distress, not acutely ill
Neck: supple. no meningeal signs. normal posterior pharynx
Heart: s1/s2 regular rate and rhythm, no murmur. equal radial
pulses.
HEENT: Pupils equal round reactive to light, EOMI
Lungs: no acute respiratory distress. clear bilaterally
Abdomen: normal bowel sounds. not tender. no CVAT
Neuro: alert and oriented. no focal neurological deficits cranial nerves II through XII intact
Skin: no rash
Psychiatric: well kept. interactive and cooperative
Extremities: no edema. no calf tenderness. negative homans. good distal pulses
Course
Orders/Labs/Results
Orders:
Orders
02/18/24 14:28
Electrocardiogram (*1) Urgent
Reason for Study: Atrial Fibrillation
EKG- Treatment ONCE
02/18/24 15:16
CMP [Comprehensive Metabolic Panel] Urgent
Complete Blood Count/With Diff Urgent
PT/INR [Prothrombin Time] Urgent
PTT Urgent
Troponin I Urgent
02/18/24 16:46
Electrocardiogram (*1) Stat
Reason for Study: Atrial Fibrillation
Electrocardiogram (*1) Urgent
Reason for Study: Tachycardia
EKG- Treatment ONCE
Abnormal Lab Results
02/18/24
15:16
RBC 4.39 L 10^6/uL
(4.70-6.10)
MCH 33.0 H pg
(27.0-31.0)
Abs Immat Gran (auto) 0.1 H 10^3/uL
(0-0.05)
Absolute Monos (auto) 1.0 H 10^3/uL
(0.1-0.6)
Immature Gran % 0.6 H %
(0-0.5)
Lymphocytes % 17.8 L %
(20.5-51.1)
Monocytes % 11.3 H %
(1.7-9.3)
Eosinophils % 6.8 H %
(0-6)
PT 16.8 H Sec
(11.4-14.6)
Carbon Dioxide 20 L mmol/L
(22-30)
Glucose 105 H mg/dl
(70-99)
ALT 54 H U/L
(0-50)
Alkaline Phosphatase 149 H U/L
(38-126)
02/18/24 15:16
02/18/24 15:16
Vital Signs
Initial and Last Documented VS:
Initial Vital Signs
Temp Pulse Resp BP Pulse Ox
98.2 F 89 16 122/80 98
02/18/24 14:34 02/18/24 14:34 02/18/24 14:34 02/18/24 14:34 02/18/24 14:34
Last Documented Vital Signs
Temp Pulse Resp BP Pulse Ox
98.2 F 83 26 114/81 94
02/18/24 14:34 02/18/24 17:00 02/18/24 17:00 02/18/24 17:00 02/18/24 17:00
MDM/Problems Addressed
Differential Diagnosis Includes:
paroxysmal atrial fibrillation
MDM/Problems Addressed:
63-year-old male with paroxysmal atrial fibrillation, spontaneously cardioverted in ED. Discussed with Dr. Metzger, recommends patient follow-up as outpatient to plan cardiac ablation.
Chronic conditions affecting care: Arrhythmia
Acute Exacerbation and/or Progression of Chronic Illness: Arrhythmia
*Pulse Oximetry
Patient hypoxic: no
*EKG
Interpreted by ED Provider?: Yes
EKG Intrepretation Date: 02/18/24
EKG Intrepretation Time: 14:32
Interpretation: abnormal
Comparison EKG: no changes
Heart Rate: 122
Rate: tachycardiac
Rhythm: a-fib
[place]: normal axis
Interval: normal interval
QRS Pattern: normal QRS
Ischemia: no ischemia
*Medical Examiner Interpretation
Rate: normal
Interpretation: normal
Heart Rate: 82
Rhythm: sinus
*Critical Care Note
Total Time (30-74mins, 75-104mins- exclusive of procedures): Not Applicable
Patient Management
Social determinants of health affecting care: Living situation
Discussion with other providers: Cardiac Catheterization Technologist (cardiology Dr. Metzger)
Escalation/DeEscalation of care consider admission/obs:
admit not indicated
ED Attending Note
-
Portions of this chart may have been created with voice recognition software.� Occasional wrong word or��sound alike� substitutions may have occurred due to the inherent limitations of voice recognition software.
Discharge Plan
Departure
Patient Disposition: Home (Routine Discharge)
Date of Disposition: 02/18/24
Time of Disposition: 16:58
Patient with high blood pressure during this ER visit?: No
Condition: Good
Discharge Problem:
PAF (paroxysmal atrial fibrillation)
Instructions: Atrial Fibrillation (DC)
Prescriptions:
No Action
atorvastatin [Lipitor] 40 MG tablet
40 mg PO HS
amlodipine 5 mg tablet
5 mg PO HS
Eliquis 5 mg Tablet
5 mg PO BID 30 Days Qty: 60 0RF
metoprolol succinate 25 mg Tablet Extended Release 24 Hr
25 mg PO DAILY 30 Days Qty: 30 0RF
budesonide-formoterol [Symbicort] 160-4.5 mcg/actuation Hfa Aerosol Inhaler
2 puff inhalation R BID 30 Days Qty: 10.2 0RF
dofetilide 250 mcg Capsule
250 mcg PO Q12 30 Days Qty: 60 0RF
benzonatate 200 mg capsule
200 mg PO BID Qty: 20 0RF
famotidine [Pepcid] 20 mg tablet
20 mg PO DAILY Qty: 30 0RF
levalbuterol tartrate [Xopenex HFA] 45 mcg/actuation HFA aerosol inhaler
2 inh inhalation Q6H PRN (Reason: cough) Qty: 15 0RF
Referrals:
Lito Johnson MD [Family Provider] -
Activity Restrictions/Additional Instructions:
Follow up with cardiology as scheduled.
Interventions
Interventions:
*Risk Screen - Suicide Last Done: 02/18/24 14:59
*General Assessment Last Done: 02/18/24 14:59
*Neglect/Abuse Screening Last Done: 02/18/24 14:59
ED- Fall Risk Assessment Last Done: 02/18/24 14:59
*ED COVID-19 Vaccine History Last Done: 02/18/24 14:34
*Nursing Disposition Last Done: 02/18/24 17:22
ED- Cardiac Assessment Last Done: 02/18/24 14:59
ED- Pulmonary Assessment Last Done: 02/18/24 14:59
Discharge Date and Time
Discharge Date/Time: 02/18/24 17:13
Print Language: [id number]
[2024-02-18 17:00] VITALS: BP 114/81
== END 2024-02-18 17:13 | disposition home or self-care (01) ==
LOC: EMR 14:16
PROVIDERS: EMERGENCY PHYSICIAN Emergency Medicine; FAMILY PHYSICIAN Internal Medicine
DX: I48.0 Paroxysmal atrial fibrillation (principal); R51.9 Headache, unspecified; I10 Essential (primary) hypertension; E78.00 Pure hypercholesterolemia, unspecified; G90.522 Complex regional pain syndrome I of left lower limb; Z79.01 Long term (current) use of anticoagulants; Z85.46 Personal history of malignant neoplasm of prostate; Z87.01 Personal history of pneumonia (recurrent); Z90.79 Acquired absence of other genital organ(s)
CPT/HCPCS: 99284; 80053; 84484; 85025; 85610; 85730; 93005

== ENCOUNTER 2024-04-04 21:00 | Observation (INO) | payer OTHER, SELFPAY ==
[2024-04-04 18:08] VITALS: BP 166/84
[2024-04-04 18:37] LABS: % Basophils 1.4 % (0-2); % Eosinophils 6.8 % (0-6); % Immature Granulocytes 0.3 % (0-0.5); % Lymphocytes 41.7 % (20.5-51.1); % Monocytes 9.4 % (1.7-9.3); % Neutrophils 40.4 % (42.2-75.2); Absolute Basophils 0.1 10^3/uL (0-0.2); Absolute Eosinophils 0.4 10^3/uL (0-0.7); Absolute Lymphocytes 2.7 10^3/uL (1.2-3.4); Absolute Monocytes 0.6 10^3/uL (0.1-0.6); Absolute Neutrophils 2.6 10^3/uL (1.4-6.5); Hematocrit 43.1 % (39.0-52.0); Hemoglobin 15.1 g/dL (13.0-18.0); Mean Corpuscular Hgb 31.2 pg (27.0-31.0); Mean Platelet Volume 8.8 fL (7.4-10.4); Nucleated Red Blood Cells % 0 % (-); Platelet Count 274 10^3/uL (130-400); Red Blood Cell Count 4.84 10^6/uL (4.70-6.10); Red Cell Dist. Width 11.9 % (11.5-14.5); White Blood Cell Count 6.4 10^3/uL (4.8-10.8)
[2024-04-04 18:52] LABS: ALT (SGPT) 40 U/L (0-50); AST (SGOT) 25 U/L (17-59); Albumin 4.6 g/dl (3.5-5.0); Alkaline Phosphatase 155 U/L (38-126); Blood Urea Nitrogen 12 mg/dl (9-20); Calcium 9.7 mg/dl (8.4-10.2); Carbon Dioxide 27 mmol/L (22-30); Chloride 104 mmol/L (98-107); Glucose 89 mg/dl (70-99); Potassium 4.2 mmol/L (3.5-5.1); Sodium 137 mmol/L (135-145); Total Bilirubin 0.5 mg/dl (0.2-1.3); Total Protein 7.8 g/dl (6.3-8.2); eGFR > 60.00
--- NOTE | 2024-04-04 19:09 | ED.GENMED ---
History of Present Illness
General
Chief Complaint: Cough
Time Seen by Provider: 04/04/24 19:06
History of Present Illness
History of Present Illness:
HPI: Patient presents with a cough over the last 2 to 3 months. He had a chest CT recently and was recommended to come here for further evaluation by Dr. Terry. I reviewed Dr. Terry's notes which recommended admission to the hospital for IV
steroids for a few days. The patient had a coughing episode in January and was found to be in new onset A-fib with failed cardioversion and is scheduled for ablation next month. He is currently in a sinus rhythm.
EXAM:
GENERAL: Well appearing in no distress but he does have proximal-isms of rather severe cough
HEENT: Moist oral mucosa
CARDIOVASCULAR: No murmurs, normal heart rate, regular rhythm, No chest wall tenderness
PULMONARY: No respiratory distress, breath sounds are clear and equal however there appears to be some inspiratory rhonchi at the right base occasionally
ABDOMEN: Soft with no peritoneal signs, no tenderness
NEUROLOGIC: Excellent strength all extremities, no coordination deficits
PSYCHIATRIC: Appropriate mental status, normal insight and judgement
EXTREMITIES: Nontender, no edema, moves all extremities equally
SKIN: No rash, no lesions
TIME OF INITIAL ENCOUNTER: 7:20 PM
NUMBER AND COMPLEXITY OF PROBLEMS ADDRESSED AT THE ENCOUNTER
� Chronic conditions affecting care: A-fib on Eliquis, high blood pressure, hyperlipidemia, prostate cancer with prostatectomy
� Acute Exacerbation and/or Progression of Chronic Illness: This is a subacute problem and is persisting
� Differential Diagnosis includes: Persistent viral syndrome, bronchitis, postinfectious cough syndrome
AMOUNT AND/OR COMPLEXITY OF DATA TO BE REVIEWED AND ANALYZED
� I performed an independent evaluation of and my interpretation is:
EKG: Sinus 50, leftward axis deviation, no significant change from 03/27/2024
CT:
X-rays: Chest x-ray personally reviewed which suggest some perihilar prominence and some atelectasis but no definite sign of pneumonia
Laboratory Studies: CBC normal, chemistries unremarkable
Other:
� Review of other/old records: I reviewed records. The patient had a CTA pulmonary vein protocol for preablation that showed a short segment common channel of the left superior and inferior pulmonary veins. Small nodules were
also noted
� Clinical information was obtained by an independent historian: I spoke to Dr. Terry on the phone and also reviewed his notes from earlier today
� Prescriptions/Medications Considered but not given:
� Further testing considered but not performed:
RISK OF COMPLICATIONS AND/OR MORBIDITY OR MORTALITY OF PATIENT MANAGEMENT
� Social determinants of health affecting care: Lives at home
� Discussion with other providers: I discussed case with Dr. Terry who recommends 3 to 4 days of IV steroid and would not be opposed to codeine while in the hospital.
� Escalation of care including admission/observation vs risk of discharge considered: As Dr. Terry recommends patient stay in the hospital, I have ordered a dose of steroids and codeine and he will be admitted to the hospital
for further evaluation and management.
Past History
Past History
ED Past Medical History: Arrthythmia, HTN and Hypercholesterolemia
ED Past Surgical History: Orthopedic (knee), Urological (prostatectomy) and Other (bilateral hernia repair)
Social History
Tobacco: Non-smoker
Alcohol: Occasional
Drug: None
Personal:
Living: with family
Phy Exam
Physical Exam
Physical Exam:
See HPI
Course
Orders/Labs/Results
Orders:
Orders
04/04/24 18:17
Complete Blood Count/With Diff Urgent
Comprehensive Metabolic Panel Urgent
04/04/24 19:20
Electrocardiogram (*1) Urgent
Reason for Study: Atrial Fibrillation
EKG- Treatment ONCE
MethylPREDNISolone PF [Solu-Medrol Pf] 125 mg IV NOW STA
04/04/24 19:22
Ipratropium/Albuterol Sulfate [Duoneb] 3 ml INH R NOW ONE
04/04/24 19:23
CR Chest - 2 Views Urgent
Comment:
Reason For Exam: cough
04/04/24 19:29
Guaifenesin/Codeine Solution [Robitussin AC] 10 ml PO NOW STA
Abnormal Lab Results
04/04/24
18:17
MCH 31.2 H pg
(27.0-31.0)
Neutrophils % 40.4 L %
(42.2-75.2)
Monocytes % 9.4 H %
(1.7-9.3)
Eosinophils % 6.8 H %
(0-6)
Alkaline Phosphatase 155 H U/L
(38-126)
04/04/24 18:17
04/04/24 18:17
Vital Signs
Initial and Last Documented VS:
Initial Vital Signs
Temp Pulse Resp BP Pulse Ox
97.7 F 50 20 166/84 97
04/04/24 18:08 04/04/24 18:08 04/04/24 18:08 04/04/24 18:08 04/04/24 18:08
Last Documented Vital Signs
Temp Pulse Resp BP Pulse Ox
97.7 F 50 20 151/113 97
04/04/24 18:08 04/04/24 18:08 04/04/24 18:08 04/04/24 20:07 04/04/24 20:15
*Critical Care Note
Total Time (30-74mins, 75-104mins- exclusive of procedures): Not Applicable
ED Attending Note
-
Portions of this chart may have been created with voice recognition software.� Occasional wrong word or��sound alike� substitutions may have occurred due to the inherent limitations of voice recognition software.
Discharge Plan
Departure
Patient Disposition: Admit
Date of Disposition: 04/04/24
Time of Disposition: 19:39
Presentation/result/management discussed w/ accepting MD/DO: Hospitalist
Discharge Problem:
Bronchitis with bronchospasm
Prescriptions:
No Action
atorvastatin [Lipitor] 40 MG tablet
40 mg PO HS
amlodipine 5 mg tablet
5 mg PO HS
Eliquis 5 mg Tablet
5 mg PO BID 30 Days Qty: 60 0RF
dofetilide 250 mcg Capsule
250 mcg PO Q12 30 Days Qty: 60 0RF
metoprolol succinate 25 mg tablet extended release 24 hr
25 mg PO BID
omeprazole 40 mg capsule,delayed release(DR/EC)
40 mg PO DAILY
Referrals:
UNKNOWN - PT DOES,NOT KNOW [Family Provider] -
Interventions
Interventions:
*Risk Screen - Suicide Last Done: 04/04/24 18:08
*General Assessment Last Done: 04/04/24 19:22
*Neglect/Abuse Screening Last Done: 04/04/24 18:08
ED- Fall Risk Assessment Last Done: 04/04/24 19:22
*ED COVID-19 Vaccine History Last Done: 04/04/24 19:22
ED- Pulmonary Assessment Last Done: 04/04/24 19:22
Discharge Date and Time
Print Language: MAORI
[2024-04-04 19:21] VITALS: BP 140/85; BMI 27.0
[2024-04-04] MEDS: SOLU-MEDROL PF 125 MG IV (19:32)
[2024-04-04] MEDS: ROBITUSSIN AC 10 ML PO (19:32)
[2024-04-04] MEDS: DUONEB 3 ML INH (19:38)
[2024-04-04 20:07] VITALS: BP 151/113
--- NOTE | 2024-04-04 20:48 | HPS.HSE ---
Family Physician
-
Family Physician: NOT KNOW UNKNOWN - PT DOES
Chief Complaint
-
Cough
History of Present Illness
Patient is a 64y M with PMH significant for hypertension and A-Fib who presents to ED complaining of cough. Patient states that he has had now-chronic cough since December 2023. He was diagnosed with COVID-19 infection at that time; however, his
cough has persisted. He has paroxysms of coughing that are so severe he feels lightheaded and SOB due to coughing spells. The cough becomes worse throughout the day and is notably worse after eating / drinking. Patient states that he wakes about
2-3 times per night with a coughing fit.
Since his cough began, he has been treated with 2 courses of abx with no improvement in his symptoms.
He developed A- Fib in the interim and has been followed by Dr. Fraser.
He is currently being evaluated for possible ablation.
Patient was seen today by Dr. Terry of Pulmonology and was sent to the ED for evaluation / hospitalization.
Medical History
Past Medical History
Past Medical History: Reports Other
Additional Past Medical History:
Hypertension
Paroxysmal Atrial Fibrillation
Past Surgical History: Reports Other
Additional Past Surgical History:
Hernia Repair
Bilateral Knee Arthroscopy
Social History
Tobacco: Non-smoker
Alcohol: Daily (2 drinks / day)
Drug: None
Personal:
Living: With Family
Family History
Family History: Other (Mother: Ovarian Cancer Father: Cerebral Aneurysm)
Allergies / Home Medications
Allergies reflects when Allergies were last updated in [facility].
Home Medications with original date entered in [facility]
Allergy/Medication List:
Allergies
Allergy/AdvReac Type Severity Reaction Status Date / Time
No Known Allergies Allergy Verified 03/25/24 09:01
Home Medications
atorvastatin 40 mg tablet (Lipitor) 40 mg PO HS High Cholesterol 07/05/08
amlodipine 5 mg tablet 5 mg PO HS Blood Pressure 01/28/24
apixaban 5 mg tablet (Eliquis) 5 mg PO BID Atrial flutter 30 days #60 tabs 01/30/24
dofetilide 250 mcg capsule 250 mcg PO Q12 30 days #60 caps 02/17/24
metoprolol succinate 25 mg tablet,extended release 24 hr 25 mg PO BID atrial flutter 04/04/24
omeprazole 40 mg capsule,delayed release 40 mg PO DAILY GERD 04/04/24
Review of Systems
-
History Source: Patient
A 12 point ROS was completed and negative except as noted: Yes
Constitutional: Reports Fatigue; Denies Fever or Chills
EENT: Denies Sore Throat or Runny Nose
Respiratory: Reports Cough and Trouble Breathing; Denies Hemoptysis
Cardiac: Denies Chest Pain, Diaphoresis, Palpitations or Syncope
Abdomen/GI: Denies Abdominal Pain, Nausea, Vomiting or Diarrhea
: Denies Dysuria, Frequency or Flank Pain
Musculoskeletal: Denies Edema
Neurological: Denies Dizzy or Headache
Psych: Denies Depression or Anxiety
Physical Exam
Vital Signs
Vital Signs
Temp Pulse Resp BP Pulse Ox
97.7 F 50 20 151/113 97
04/04/24 18:08 04/04/24 18:08 04/04/24 18:08 04/04/24 20:07 04/04/24 20:15
Physical Exam
General: Other (64y M in no acute distress.)
HEENT: Moist mucous membranes and PERRLA
Respiratory: Other (Decreased BS bilaterally with few scattered rales. Halting expiratory pattern.)
Cardiac: S1/S2 and Regular Rhythm; No Murmur
GI: Soft, Non Tender, Non Distended and Normal Bowel Sounds
Musculoskeletal: No Clubbing, No Cyanosis and No Edema
Neuro: AO x 3
Laboratory Results
-
04/04/24 18:17
04/04/24 18:17
Laboratory Results
Total Bilirubin 0.5 mg/dl (0.2-1.3) 04/04/24 18:17
AST 25 U/L (17-59) 04/04/24 18:17
ALT 40 U/L (0-50) 04/04/24 18:17
Alkaline Phosphatase 155 U/L (38-126) H 04/04/24 18:17
Impression/Plan
-
A/P: Patient is a 64y M with PMH significant for hypertension and A-Fib who presents to ED c/o chronic cough.
Chronic Cough
Post-Infectious Bronchitis
- Observe overnight for further evaluation and treatment.
- IV steroids per Pulmonary recommendations.
- ATC nebs (with Xopenex given A-Fib issues), Acapella, cough suppressants, etc.
- Pulmonary evaluation during stay.
- Follow for clinical improvement - consider slow steroid taper on discharge.
- CT chest done within last 2 weeks was fairly unremarkable.
- CXR today normal.
- Seems likely due to initial COVID-19 infection in December prior to onset of all new issues / symptoms.
- Speech eval given apparent association with food / drink intake.
Paroxysmal Atrial Fibrillation
- Stable on Tikosyn at present.
- Monitor on telemetry for now.
- Nebs with Xopenex as noted above.
- Continue other CV meds including metoprolol and Eliquis.
- Echo and BNP done in January were normal - doubt atypical CHF.
Benign Hypertension
- Stable. Continue current med regimen and adjust as needed.
DVT Prophylaxis: On Eliquis
Code Status: Full
[2024-04-04 21:00] VITALS: BP 147/90
[2024-04-04 22:00] VITALS: BP 147/81
[2024-04-04 22:10] VITALS: BP 139/76; BMI 26.8
[2024-04-04 22:33] VITALS: BMI 26.8
[2024-04-04] MEDS: TOPROL XL 25 MG PO (22:48)
[2024-04-04] MEDS: NORVASC 5 MG PO (22:49)
[2024-04-04] MEDS: LIPITOR 40 MG PO (22:49)
[2024-04-04] MEDS: TIKOSYN 250 MCG PO (22:50)
[2024-04-04] MEDS: ELIQUIS 5 MG PO (22:50)
[2024-04-04 23:03] LABS: Erythrocyte Sed Rate 23 mm/hour (0-20)
[2024-04-04] MEDS: PHENERGAN WITH CODEINE SYRUP 5 ML PO (23:29)
[2024-04-05 03:02] VITALS: BP 141/64
--- NOTE | 2024-04-05 03:37 | PTCARENOTE ---
Pt received from ED at 2210. Pt AA&O x4, able to make needs known, receptive to room and call hutchison. Will continue with current plan of care.
[2024-04-05] MEDS: DECADRON 4 MG IV ×3 (03:52→20:25)
[2024-04-05 06:00] VITALS: BMI 26.7
[2024-04-05] MEDS: XOPENEX 0.63 MG INHALANT SOLUTION INH ×3 (07:26→20:14)
[2024-04-05] MEDS: ATROVENT NEBULES 0.5 MG INH ×3 (07:26→20:14)
[2024-04-05 07:45] VITALS: BP 135/86
[2024-04-05 08:25] LABS: Hematocrit 43.4 % (39.0-52.0); Hemoglobin 15.5 g/dL (13.0-18.0); Mean Corp Hgb Conc. 35.7 g/dL (33.0-37.0); Mean Corpuscular Hgb 30.7 pg (27.0-31.0); Mean Corpuscular Volume 85.9 fL (80.0-94.0); Mean Platelet Volume 9.1 fL (7.4-10.4); Platelet Count 324 10^3/uL (130-400); Red Blood Cell Count 5.05 10^6/uL (4.70-6.10); Red Cell Dist. Width 11.9 % (11.5-14.5); White Blood Cell Count 7.1 10^3/uL (4.8-10.8)
--- NOTE | 2024-04-05 08:30 | RESPNOTE ---
Respiratory: patient instructed on use of Acapella PEP, strong NPC.
[2024-04-05 08:50] LABS: Blood Urea Nitrogen 14 mg/dl (9-20); Calcium 10.1 mg/dl (8.4-10.2); Carbon Dioxide 20 mmol/L (22-30); Chloride 105 mmol/L (98-107); Estimated Creatinine Clearance 96 ml/min; Glucose 148 mg/dl (70-99); Potassium 4.6 mmol/L (3.5-5.1); Sodium 138 mmol/L (135-145); eGFR > 60.00
--- NOTE | 2024-04-05 08:50 | PTOTSP ---
Dysphagia Evaluation
Oral/pharyngeal swallow suspected to be within functional limits based on clinical bedside swallowing evaluation.
Patient reported signs concerning for esophageal dysphagia (i.e., regurgitation) for which he saw an outpatient subsurface augmentee operator this week. Question if bottom up aspiration could be contributing to his chronic cough and dysphonia.
Otolaryngology consult should be considered to r/o laryngeal changes contributing to this chronic cough (frequently occurring but noted with cold drinks and prolonged talking per patent) and dysphonia (hoarse vocal quality).
Recommend:
1. Regular, Thin Liquids
2. General aspiration and reflux precautions
3. Hydration and avoid vocal strain/misuse
4. Consider ENT consult. Reconsult as an inpatient and/or outpatient (voice eval) pending findings.
[2024-04-05] MEDS: TOPROL XL 25 MG PO ×2 (09:00→20:50)
[2024-04-05] MEDS: ELIQUIS 5 MG PO ×2 (09:00→20:25)
[2024-04-05] MEDS: TIKOSYN 250 MCG PO ×2 (09:00→20:25)
[2024-04-05 09:37] LABS: Hepatitis C Antibody Negative (Negative)
--- NOTE | 2024-04-05 09:41 | CON.PUL ---
Consultation
Consultation Request
Date/Time Consultation Requested: 04/05
Date/Time Consultation Performed: 04/05
Reason for Consultation: Shortness of breath
Medical History
-
History of Present Illness:
History obtained from the chart and from reviewing outpatient and inpatient records. Patient is a 64-year-old male who was seen by Dr. Terry on 04/04/2024 as a new patient. He was diagnosed with cough variant asthma, history of atrial flutter. He
also has a history of COVID infection December 2023. He had been treated with Symbicort as outpatient and nebulizer, did not notice much improvement. For this reason he was sent to [facility] for further management. Upon arrival, afebrile,
pulse 50, breathing at 20, blood pressure 166/84, 97%. Per ED records, patient with scattered inspiratory rhonchi. Imaging unremarkable. He was given IV steroids, nebulized therapy and admitted for possible bronchospasm. We are asked to comment
on pulmonary process
Patient notes increased cough with eating and drinking but denies tsering aspiration, regurgitation, heartburn. He also notes some improvement with sleeping with head of bed elevated, which pillow. He was treated with short course of steroids at the
time of his COVID back in December, cannot recall any improving cough. He was on Symbicort for 2 months, not sure whether it helped. Admits to significant snoring, awaiting home sleep study
.
PMH: Hypertension, history of atrial flutter/atrial fibrillation, prostate cancer, history of multiple pulm nodules, orthopedic surgery, hernia repair
Past Medical History
Past Medical History: None (See above)
Past Surgical History: None (See above)
Social History
Tobacco: Non-smoker
Alcohol: None
Drug: None
Personal:
Living: With Family
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
Family History
Family History: Other (Mother with ovarian and bladder cancer at 80 . Family history negative for blood clots, lung cancer. Father from aneurysm in the brain and third decade)
Allergies / Home Medications
Allergies
Allergy/AdvReac Type Severity Reaction Status Date / Time
No Known Allergies Allergy Verified 03/25/24 09:01
Home Medications
�Medication �Instructions �Recorded �Confirmed �Last Taken �Type
atorvastatin 40 mg tablet (Lipitor) 40 mg PO HS High Cholesterol 07/05/08 04/04/24 04/03/24 History
amlodipine 5 mg tablet 5 mg PO HS Blood Pressure 01/28/24 04/04/24 04/03/24 History
apixaban 5 mg tablet (Eliquis) 5 mg PO BID Atrial flutter 30 days 01/30/24 04/04/24 04/04/24 Rx
#60 tabs
dofetilide 250 mcg capsule 250 mcg PO Q12 30 days #60 caps 02/17/24 04/04/24 04/04/24 Rx
metoprolol succinate 25 mg 25 mg PO BID atrial flutter 04/04/24 04/04/24 04/04/24 History
tablet,extended release 24 hr
omeprazole 40 mg capsule,delayed 40 mg PO DAILY GERD 04/04/24 04/04/24 04/04/24 History
release
Review of Systems
-
All other systems: Negative unless noted
Vitals / Labs / Diagnostic Testing
Vital Signs
Temp Pulse Resp BP Pulse Ox
97.9 F 67 19 135/86 94
04/05/24 07:45 04/05/24 09:00 04/05/24 07:45 04/05/24 09:00 04/05/24 07:45
Lab Data
04/05/24 08:09
04/05/24 08:09
Diagnostic Testing:
Physical Exam
-
HEENT: Normocephalic, Anicteric and Other (Hoarse voice)
Cardiovascular: S1/S2, Regular Rhythm, Murmur (n), Peripheral Edema (n) and Calf Tenderness (n)
Respiratory: Wheeze (n), Rales (n), Rhonchi (n) and Non-Labored Respirations
GI: Soft, Non Distended and Non Tender
Neurology: Awake, Alert and No Motor Deficits
Skin: Good Color
General: Comfortable
Assessment
-
64-year-old male with history of hypertension, atrial fibrillation/flutter with chronic bronchitis admitted with acute asthma exacerbation. We are asked to comment on pulmonary process
Acute asthmatic bronchitis
Obstructive lung disease, FEV1 2.17/63%, ratio 67.
Multiple pulmonary nodules, per CT chest 03/27/2024
Hoarseness of voice
Peripheral eosinophilia
Conditions present prior to admission
Atrial flutter/fibrillation, hospitalized January 2024
Awaiting ablation
History of pneumonia 2021
Chronic rhinitis
Hiatal hernia/GERD
Snoring, awaiting home sleep study
Plan/recommendations
At this time, patient appears to be nontoxic. There is no evidence of wheezing on exam.
He does have a hoarseness of voice
Chest x-ray unremarkable, CT chest 03/27/2024 with few scattered small nodules
Moving forward
We will continue with IV steroids for now. Patient has some mild improvement
Hoarseness of voice has been present for few months. May benefit from ENT evaluation
Suspect cough is multifactorial (suspected sleep apnea, recent COVID illness, obstructive airways disease, rhinitis)
Will plan to continue inhaled steroid alone
Add Singulair
Peripheral eosinophilia noted
Await outpatient home sleep study
Continue positional therapy
Reviewed with patient
Disposition efforts
We will follow
[2024-04-05] MEDS: FLOVENT 220MCG 2 PUFF INH ×2 (11:16→20:14)
[2024-04-05 11:22] VITALS: BP 145/76
[2024-04-05 11:58] LABS: Procalcitonin 0.05 ng/ml (0.0-0.25)
[2024-04-05] MEDS: PHENERGAN WITH CODEINE SYRUP 5 ML PO ×2 (12:58→17:29)
--- NOTE | 2024-04-05 14:09 | W.PN.HOSP.TC ---
Addendum entered and electronically signed by Albert Larose MD 04/05/24 16:21:
Seen and examined by me independently in collaboration with the medical imaging specialist.
Lab data and imaging data reviewed.
Addendum as below :
Patient is improving with steroids and neb treatment so far.
No obvious evidence of pneumonia.
Pulmonary input noted.
Continue with steroids and if continued improvement will discharge patient home on steroid taper.
Original Note:
Today's Communication/Plan
-
* Continue nebs and IV steroids.
* Supportive measures with Acapella, cough suppressants, montelukast, PPI.
Assessment / Plan
Assessment / Plan
Assessment
Ravi Aburto, age 64, presented to the ED on 04-04-24 with complaining of cough, which has been chronic since December 2023. He was diagnosed with COVID-19 infection at that time; however, his cough has persisted. He has paroxysms of coughing that
are so severe he feels lightheaded and SOB due to coughing spells. The cough becomes worse throughout the day and is notably worse after eating / drinking. Patient states that he wakes about 2-3 times per night with a coughing fit. Since his cough
began, he has been treated with 2 courses of abx with no improvement in his symptoms. He developed A- Fib in the interim and has been followed by Dr. Fraser; ablation planned later this month.
Impression and plan
Chronic cough
Acute asthmatic bronchitis
Obstructive lung disease
Peripheral eosinophilia
- IV steroids per Pulmonary recommendations - improved from baseline.
- ATC nebs (with Xopenex given A-Fib issues), Acapella, cough suppressants, etc.
- Add montelukast.
- Follow for clinical improvement - consider slow steroid taper on discharge.
- CT chest done within last 2 weeks was fairly unremarkable.
- CXR today normal.
- Seems likely due to initial COVID-19 infection in December prior to onset of all new issues / symptoms.
- Speech eval without concerns for dysphagia or aspiration.
- Etiology possibly multi-factorial multifactorial; post-viral cough syndrome, obstructive airways disease, rhinitis, GERD.
- Pulmonology following.
- ENT evaluation as an outpatient if necessary.
Paroxysmal Atrial Fibrillation
- Stable on dofetilide at present.
- Monitor on telemetry for now.
- Nebs with Xopenex as noted above.
- Continue other CV meds including metoprolol and Eliquis.
- Echo and BNP done in January were normal - doubt atypical CHF.
Essential hypertension
- Stable. Continue current med regimen and adjust as needed.
DVT Prophylaxis
- Apixaban
Code Status
- Full
Anticipated Discharge: Within 24 hours
Subjective/Interval History
-
Date of Service: April 05, 2024
Objective Data
-
Labs:
Laboratory Results
04/05/24
08:09
WBC 7.1
Hgb 15.5
Hct 43.4
Plt Count 324
Sodium 138
Potassium 4.6
Chloride 105
Carbon Dioxide 20 L
BUN 14
Creatinine 0.8
Glucose 148 H
Calcium 10.1
Vital Signs:
Vital Signs
Temp Pulse Resp BP Pulse Ox
97.5 F 70 18 145/76 94
04/05/24 11:22 04/05/24 13:23 04/05/24 11:22 04/05/24 11:22 04/05/24 11:22
I&O
04/04/24 04/05/24 04/06/24
06:59 06:59 06:59
Intake Total 480 / 480
Balance 480 / 480
Review of Systems
-
History Source: Patient
Constitutional: Reports Sleep Disturbance
EENT: Reports No Symptoms Reported
Respiratory: Reports Cough
Cardiac: Reports No Symptoms
Abdomen/GI: Reports No Symptoms
Genitourinary: Reports No Symptoms
Musculoskeletal: Reports No Symptoms
Skin: Reports No Symptoms
Neuro: Reports No Symptoms
Endocrine: Reports No Symptoms
Hematologic / Lymphatic: Reports No Symptoms
Allergy / Immunology: Reports Allergic Rhinitis
Physical Exam
-
General: No Apparent Distress and Comfortable
HEENT: Normocephalic, Atraumatic, Moist Mucous Membranes and Anicteric
Respiratory: Clear to Auscultation, Non Labored Respirations and Other (intermittent coughing fits lasting 10-20 seconds)
Cardiac: Regular Rhythm and S1/S2
GI: Soft, Nontender, Nondistended and No Hepatosplenomegaly
Genito-urinary: No Costovertebral Tender
Musculoskeletal: No Clubbing, No Cyanosis and No Edema
Skin: Warm, Dry and IV Access / Catheter Site
Neuro: Awake, Alert, Oriented and Nonfocal/Grossly Intact
Hematologic / Lymphatic: No Lymphadenopathy
Psych: Calm
[2024-04-05 14:52] LABS: TSH Reflex To Free T4 0.58 uIU/ml (0.47-4.68)
--- NOTE | 2024-04-05 14:59 | CM ---
manager civil reviewed patient's chart and met with patient and patient lives with his spouse in a multilevel home, marci is independent with adl's and ambulation, no dme, patient drives, home when stable no needs.
Pharmacy [facility]
Plan; Home with spouse when stable, no needs.
[2024-04-05 15:35] VITALS: BP 155/83
[2024-04-05] MEDS: TESSALON PERLES 200 MG PO ×2 (16:13→21:54)
[2024-04-05] MEDS: SINGULAIR 10 MG PO (17:28)
[2024-04-05 19:00] VITALS: BP 162/97
[2024-04-05] MEDS: PROTONIX 40 MG PO (21:53)
[2024-04-05] MEDS: LIPITOR 40 MG PO (21:53)
[2024-04-05] MEDS: NORVASC 5 MG PO (21:54)
[2024-04-05 23:00] VITALS: BP 128/68
[2024-04-06 03:00] VITALS: BP 123/70
[2024-04-06] MEDS: DECADRON 4 MG IV ×2 (04:01→12:20)
[2024-04-06] MEDS: PHENERGAN WITH CODEINE SYRUP 5 ML PO (04:06)
[2024-04-06 06:59] LABS: Hematocrit 40.6 % (39.0-52.0); Hemoglobin 14.3 g/dL (13.0-18.0); Mean Corp Hgb Conc. 35.2 g/dL (33.0-37.0); Mean Corpuscular Hgb 31.4 pg (27.0-31.0); Mean Platelet Volume 9.4 fL (7.4-10.4); Platelet Count 293 10^3/uL (130-400); Red Blood Cell Count 4.56 10^6/uL (4.70-6.10); Red Cell Dist. Width 12.2 % (11.5-14.5); White Blood Cell Count 13.8 10^3/uL (4.8-10.8)
[2024-04-06 07:00] VITALS: BP 128/76
[2024-04-06 07:15] LABS: Blood Urea Nitrogen 15 mg/dl (9-20); Calcium 9.5 mg/dl (8.4-10.2); Carbon Dioxide 22 mmol/L (22-30); Chloride 107 mmol/L (98-107); Estimated Creatinine Clearance 96 ml/min; Glucose 129 mg/dl (70-99); Potassium 4.3 mmol/L (3.5-5.1); Sodium 137 mmol/L (135-145); eGFR > 60.00
[2024-04-06] MEDS: XOPENEX 0.63 MG INHALANT SOLUTION INH ×2 (07:42→13:25)
[2024-04-06] MEDS: ATROVENT NEBULES 0.5 MG INH ×2 (07:42→13:25)
[2024-04-06] MEDS: FLOVENT 220MCG 2 PUFF INH (07:43)
--- NOTE | 2024-04-06 07:55 | W.PN.HOSP.TC ---
Today's Communication/Plan
-
* Anticipated discharge today with steroid taper.
Assessment / Plan
Assessment / Plan
Assessment
Ravi Aburto, age 64, presented to the ED on 04-04-24 with complaining of cough, which has been chronic since December 2023. He was diagnosed with COVID-19 infection at that time; however, his cough has persisted. He has paroxysms of coughing that
are so severe he feels lightheaded and SOB due to coughing spells. The cough becomes worse throughout the day and is notably worse after eating / drinking. Patient states that he wakes about 2-3 times per night with a coughing fit. Since his cough
began, he has been treated with 2 courses of abx with no improvement in his symptoms. He developed A- Fib in the interim and has been followed by Dr. Fraser; ablation planned later this month.
Impression and plan
Chronic cough
Acute asthmatic bronchitis
Obstructive lung disease
Peripheral eosinophilia
- IV steroids per Pulmonary recommendations - improved from baseline.
- ATC nebs (with Xopenex given A-Fib issues), Acapella, cough suppressants, etc.
- Add montelukast.
- Follow for clinical improvement - consider slow steroid taper on discharge.
- CT chest done within last 2 weeks was fairly unremarkable.
- CXR today normal.
- Seems likely due to initial COVID-19 infection in December prior to onset of all new issues / symptoms.
- Speech eval without concerns for dysphagia or aspiration.
- Etiology possibly multi-factorial multifactorial; post-viral cough syndrome, obstructive airways disease, rhinitis, GERD.
- Pulmonology following.
- ENT evaluation as an outpatient if necessary.
Paroxysmal Atrial Fibrillation
- Stable on dofetilide at present.
- Monitor on telemetry for now.
- Nebs with Xopenex as noted above.
- Continue other CV meds including metoprolol and Eliquis.
- Echo and BNP done in January were normal - doubt atypical CHF.
Essential hypertension
- Stable. Continue current med regimen and adjust as needed.
DVT Prophylaxis
- Apixaban
Code Status
- Full
Anticipated Discharge: Today
Subjective/Interval History
-
Date of Service: April 06, 2024
Objective Data
-
Labs:
Laboratory Results
04/06/24
05:55
WBC 13.8 H
Hgb 14.3
Hct 40.6
Plt Count 293
Sodium 137
Potassium 4.3
Chloride 107
Carbon Dioxide 22
BUN 15
Creatinine 0.8
Glucose 129 H
Calcium 9.5
Vital Signs:
Vital Signs
Temp Pulse Resp BP Pulse Ox
97.7 F 61 16 123/70 96
04/06/24 03:00 04/06/24 07:46 04/06/24 07:46 04/06/24 03:00 04/06/24 07:46
I&O
04/05/24 04/06/24 04/07/24
06:59 06:59 06:59
Intake Total 480 / 480 1320 / 1320
Balance 480 / 480 1320 / 1320
Review of Systems
-
History Source: Patient
Constitutional: Reports Sleep Disturbance
EENT: Reports No Symptoms Reported
Respiratory: Reports Cough
Cardiac: Reports No Symptoms
Abdomen/GI: Reports No Symptoms
Genitourinary: Reports No Symptoms
Musculoskeletal: Reports No Symptoms
Skin: Reports No Symptoms
Neuro: Reports No Symptoms
Endocrine: Reports No Symptoms
Hematologic / Lymphatic: Reports No Symptoms
Allergy / Immunology: Reports Allergic Rhinitis
Physical Exam
-
General: No Apparent Distress and Comfortable
HEENT: Normocephalic, Atraumatic, Moist Mucous Membranes and Anicteric
Respiratory: Clear to Auscultation, Non Labored Respirations and Other (intermittent coughing fits lasting 10-20 seconds)
Cardiac: Regular Rhythm and S1/S2
GI: Soft, Nontender, Nondistended and No Hepatosplenomegaly
Genito-urinary: No Costovertebral Tender
Musculoskeletal: No Clubbing, No Cyanosis and No Edema
Skin: Warm, Dry and IV Access / Catheter Site
Neuro: Awake, Alert, Oriented and Nonfocal/Grossly Intact
Hematologic / Lymphatic: No Lymphadenopathy
Psych: Calm
[2024-04-06] MEDS: ELIQUIS 5 MG PO (08:26)
[2024-04-06] MEDS: TOPROL XL 25 MG PO (08:26)
[2024-04-06] MEDS: TESSALON PERLES 200 MG PO (08:26)
[2024-04-06] MEDS: TIKOSYN 250 MCG PO (08:26)
[2024-04-06 11:00] VITALS: BP 141/81
--- NOTE | 2024-04-06 11:18 | W.DCSUMMARY ---
Discharge Summary
Discharge Data
Date of Admission: 04/04/24
Date of Discharge: 04/06/24
-
Pending Results: No
Hospital Course
Primary discharge diagnosis
* Acute asthmatic bronchitis
Secondary discharge diagnoses
- Chronic cough
- Post-viral cough syndrome
- Upper airway cough syndrome
- Obstructive lung disease
- Peripheral eosinophilia
- Paroxysmal atrial fibrillation
- Essential hypertension
Hospital course
Ravi Aburto, age 64, came to the hospital after seeing his spray drier on 04-04-24 for worsening cough and associated pre-syncope and dizziness. He was diagnosed and treated for COVID-19 pneumonia in 12/2023, and has had a chronic cough
since then - this has gotten progressively worse. To the point where it woke him up several times a night, he would get lightheaded and feel like passing out prior to his presentation to the emergency. He received IV dexamethasone and his symptoms
subsided. He did not required oxygen throughout his hospital course, and other vitals had also remained stable. His imaging and lab work were also unremarkable through the admission. On the day of his discharge, his physical exam was normal, vitals
and lab work within normal limits, and he was feeling significantly improved. He was seen by pulmonology during this visit and will have an outpatient follow-up with his spray drier soon after discharge. He will be discharged on a steroid taper.
He has an ablation planned later this month for his paroxysmal atrial fibrillation, sleep study scheduled for suspected sleep apnea, and otorhinolaryngology consult outpatient for upper airway cough syndrome.
Discharge Plan
-
Patient Disposition: Home (Routine Discharge)
Discharge Diagnosis/Procedures: Chronic cough
Acute asthmatic bronchitis
Obstructive lung disease
Peripheral eosinophilia
Paroxysmal Atrial Fibrillation
Condition: Good
Diet: As tolerated
Activity: No restrictions
Driving Restrictions: As prior to admission
Bathing Restrictions: None
Blood Work: CBC in 1 week
Instructions: Sleep apnea in adults, Asthma in adults
Referrals:
Gittlen,Gio D., MD [Active] -
(4-6 weeks as previously scheduled
Full PFT and FeNo)
Prescriptions:
New
montelukast 10 mg tablet
10 mg PO HS 30 Days Qty: 30 3RF
prednisone 10 mg Tablet
10 mg PO DIRECTED 14 Days Qty: 21 0RF
Rx Instructions:
WEEK ONE: 2 TABLETS ONCE A DAY. WEEK TWO: 1 TABLET ONCE A DAY.
fluticasone propionate 50 mcg/actuation spray,suspension
2 spray intranasal DAILY 30 Days Qty: 16 3RF
Arnuity Ellipta 100 mcg/actuation blister with device
1 inh inhalation DAILY 30 Days Qty: 30 3RF
Continued
atorvastatin [Lipitor] 40 MG tablet
40 mg PO HS
amlodipine 5 mg tablet
5 mg PO HS
Eliquis 5 mg Tablet
5 mg PO BID 30 Days Qty: 60 0RF
dofetilide 250 mcg Capsule
250 mcg PO Q12 30 Days Qty: 60 0RF
metoprolol succinate 25 mg tablet extended release 24 hr
25 mg PO BID
omeprazole 40 mg capsule,delayed release(DR/EC)
40 mg PO DAILY
Discharge Orders:
Discharge Patient (As Directed); Ordered 04/06/24
Ordered By: Austin Stover
Discharge Date and Time
Discharge Date/Time: 04/06/24 15:30
Print Language: SPANISH
--- NOTE | 2024-04-06 12:12 | W.PN.PUL3 ---
Today's Communication / Plan
-
Continue Singulair, Flovent as outpatient
Prednisone 20 mg for 7 days, 10 mg for 7 days then off
GERD therapy
Positional therapy
Follow-up with pulmonary in 1 month
Disposition efforts
Assessment
-
64-year-old male with history of hypertension, atrial fibrillation/flutter with chronic bronchitis admitted with acute asthma exacerbation. We are asked to comment on pulmonary process
Acute asthmatic bronchitis
Obstructive lung disease, FEV1 2.17/63%, ratio 67.
Multiple pulmonary nodules, per CT chest 03/27/2024
Hoarseness of voice
Peripheral eosinophilia
Conditions present prior to admission
Atrial flutter/fibrillation, hospitalized January 2024
Awaiting ablation
History of pneumonia 2021
Chronic rhinitis
Hiatal hernia/GERD
Snoring, awaiting home sleep study
Plan/recommendations
At this time, patient appears to be nontoxic. There is no evidence of wheezing on exam.
He does have a hoarseness of voice
Chest x-ray unremarkable, CT chest 03/27/2024 with few scattered small nodules
Feels cough is improved for the first time, denies nocturnal awakenings through the night or waking up in the morning with coughing
Moving forward
Transition to prednisone 20 mg, continue for 7 days, then 10 mg for 7 days then off
Continue with Singulair, Flovent as prescribed
Continue with GERD therapy
Suspect cough is multifactorial (suspected sleep apnea, recent COVID illness, obstructive airways disease, rhinitis)
He may eventually require ENT evaluation for hoarseness. This can be done as an outpatient
Suspect cough may be improved because of positional therapy, patient was sleeping at 45 degrees through the night
Hopefully can continue this at home
Await outpatient home sleep study
Continue positional therapy
Reviewed with patient
Plan for disposition today. Follow-up with Dr. Terry in 4 to 6 weeks
Reviewed with patient and primary service at length
Subjective Data
-
Date of Service:
Date of Service: April 06, 2024
Subjective:
For the first time, patient did not cough throughout the night. Denies hemoptysis, chest pain. Ambulating in the room without difficulty. Tolerating Flovent and Singulair
Objective Data
Data Reviewed
Vital Signs / I&O / Oxygen:
Vital Signs
Temp Pulse Resp BP Pulse Ox
97.7 F 52 16 141/81 97
04/06/24 11:00 04/06/24 11:00 04/06/24 11:00 04/06/24 11:00 04/06/24 11:00
Intake and Output
04/05/24 04/06/24 04/07/24
06:59 06:59 06:59
Intake Total 480 / 480 1320 / 1320
Balance 480 / 480 1320 / 1320
SaO2 97
Physical Exam
General: Comfortable
HEENT: Normocephalic and Anicteric
Cardiovascular: S1-S2, Regular Rhythm, Murmur (n), Rub (n), Peripheral Edema (n) and Calf Tenderness (n)
Respiratory: Wheeze (n), Crackles (n), Rhonchi (n) and Non-Labored Respirations
GI: Soft, Non Distended and Non Tender
Neurology: Awake, Alert and No Motor Deficits (Ambulating)
Skin: Jaundice (n) and Rash (n)
Labs/Micro/Reports
Lab Data
04/06/24 05:55
04/06/24 05:55
--- NOTE | 2024-04-06 12:44 | W.PN.UPDATE ---
Addendum entered and electronically signed by Albert Larose MD 04/06/24 12:48:
Correction - it is paroxysmal Afib not Aflutter
Original Note:
Update Note
Progress Note Update
Read, reviewed, and agree. See progress note for additional details. Time spent coordinating care, DC planning, review of DC plan of care with resident, transition of care, review of records in EMR, med rec, consults, notes, d/w consultants,
nursing, family, and CM 35 mins
seen and examined by me independently in collaboration with the senior medical billing specialist Austin.
Lab data and imaging data reviewed.
Addendum as below :
Improved cough. Was able to sleep better without much of cough last night. Denies any shortness of breath. Not hypoxic. Hemodynamically stable. Afebrile.
Chest clear today without any wheezing.
Suspected case of acute asthmatic bronchitis. Peripheral eosinophilia noted. Improved symptoms with steroids. Appreciate pulmonary input. Continue with prednisone taper per pulmonary. Singulair added because of eosinophilia DC on Flovent.
Patient advised to follow-up with the pulmonary as an outpatient. If persistent hoarse voice after treatment of bronchitis to consider ENT eval.
Advised PPI while on steroids.
Parox aflutter - in SR
--- NOTE | 2024-04-06 14:18 | CM ---
Plan: discharge to home; no needs
--- NOTE | 2024-04-06 14:23 | PTOTSP ---
Chart reviewed. Spoke to RN - notes that patient has been independently walking in his room. Spoke to patient, patient independently stands to greet therapists and notes that he has been walking around fine, getting in/out of bed without issues,
and has no concerns regarding going home and being able to function. He does attest to a 'nasty cough', which he reports as his main problem at this time. patient declines session noting no issues to work on with therapy. patient educated to
alert staff that if this situation changes and to reconsult PT. At this time, patient is declining services and reports independence. Will sign off.
[2024-04-06 15:00] VITALS: BP 138/84
== END 2024-04-06 15:30 | disposition home or self-care (01) ==
LOC: 4 WEST ACU 21:00
PROVIDERS: Student in an Organized Health Care Education/Training Program; ADMITTING PHYSICIAN Hospitalist; ATTENDING PHYSICIAN Internal Medicine; EMERGENCY PHYSICIAN Emergency Medicine; OTHER PHYSICIAN Internal Medicine Critical Care Medicine
DX: J44.1 Chronic obstructive pulmonary disease with (acute) exacerbation (principal); J45.991 Cough variant asthma; I48.0 Paroxysmal atrial fibrillation; E78.00 Pure hypercholesterolemia, unspecified; D72.10 Eosinophilia, unspecified; R49.0 Dysphonia; K44.9 Diaphragmatic hernia without obstruction or gangrene; K21.9 Gastro-esophageal reflux disease without esophagitis; J31.0 Chronic rhinitis; I10 Essential (primary) hypertension; Z79.01 Long term (current) use of anticoagulants; Z86.16 Personal history of COVID-19; Z85.46 Personal history of malignant neoplasm of prostate; Z87.01 Personal history of pneumonia (recurrent)
CPT/HCPCS: 71046; 80048; 80053; 84145; 84443; 85025; 85027; 85652; 86803; 92610; 93005; 94640; 96374; 99285; G0378

== ENCOUNTER 2024-04-16 06:02 | Day surgery (SDC) | payer OTHER, SELFPAY ==
[2024-03-27 13:00] VITALS: BMI 26.0
[2024-03-27 13:39] LABS: % Basophils 1.6 % (0-2); % Eosinophils 6.5 % (0-6); % Immature Granulocytes 0.1 % (0-0.5); % Lymphocytes 38.8 % (20.5-51.1); % Monocytes 11.5 % (1.7-9.3); % Neutrophils 41.5 % (42.2-75.2); Absolute Basophils 0.1 10^3/uL (0-0.2); Absolute Eosinophils 0.5 10^3/uL (0-0.7); Absolute Lymphocytes 2.7 10^3/uL (1.2-3.4); Absolute Monocytes 0.8 10^3/uL (0.1-0.6); Absolute Neutrophils 2.9 10^3/uL (1.4-6.5); Hematocrit 43.3 % (39.0-52.0); Hemoglobin 15.4 g/dL (13.0-18.0); Mean Corp Hgb Conc. 35.6 g/dL (33.0-37.0); Mean Corpuscular Volume 87.1 fL (80.0-94.0); Mean Platelet Volume 8.9 fL (7.4-10.4); Nucleated Red Blood Cells % 0 % (-); Platelet Count 266 10^3/uL (130-400); Red Blood Cell Count 4.97 10^6/uL (4.70-6.10); White Blood Cell Count 7.1 10^3/uL (4.8-10.8)
[2024-03-27 13:48] LABS: INR 1.22; PT 15.5 Sec (11.4-14.6)
[2024-03-27 13:57] LABS: ALT (SGPT) 34 U/L (0-50); AST (SGOT) 22 U/L (17-59); Albumin 4.6 g/dl (3.5-5.0); Alkaline Phosphatase 148 U/L (38-126); Blood Urea Nitrogen 17 mg/dl (9-20); Calcium 9.6 mg/dl (8.4-10.2); Carbon Dioxide 23 mmol/L (22-30); Chloride 107 mmol/L (98-107); Estimated Creatinine Clearance 79 ml/min; Glucose 95 mg/dl (70-99); Potassium 4.3 mmol/L (3.5-5.1); Sodium 137 mmol/L (135-145); Total Bilirubin 0.6 mg/dl (0.2-1.3); Total Protein 7.6 g/dl (6.3-8.2); eGFR > 60.00
--- NOTE | 2024-03-28 15:40 | W.PN.UPDATE ---
Update Note
Progress Note Update
Incidental pulmonary nodules--faxed to PCP-LM patient
[2024-04-16] VITALS (11 sets, daily range): BP systolic 94–129; BP diastolic 66–90; BMI 25.1
--- NOTE | 2024-04-16 08:06 | ITS.CL.ABL ---
[facility] - Ablation
Ablation
Procedure Report:
Primary Care: Lito Johnson MD
Procedure Date: 04/16/2024
Patient History:
Patient is a pleasant 64-year-old male with a past medical history significant for osteoarthritis, mixed dyslipidemia, hypertension, and paroxysmal symptomatic atrial fibrillation.
See H&P for complete details.
Indication:
Symptomatic paroxysmal atrial fibrillation
Arrhythmia Specific History:
Prior Medical Therapies for Rate and Rhythm Control:
X Beta-nayely
[ ] Calcium channel-nayely
[ ] Amiodarone
[ ] Dronederone
[ ] Sotalol
[ ] Flecainide
X Dofetilide
[ ] Options limited by bradycardia
[ ] Options limited by comorbid renal disease
Prior Procedural Therapies for AF/AFL:
X Cardioversion
[ ] Pulmonary Vein Isolation
[ ] Posterior Wall Isolation
[ ] Additional lines (Specify)
[ ] Surgical Stewart-MAZE or PVI (Specify)
Procedure Performed:
X AF ablation procedure (45151) -- includes LA/CS pacing, trans-septal, 3D mapping, + ICE
[ ] +IV drug (11452)
[ ] +Other Arrhythmia (09662)
[ ] +Other AF Line/ablation (64626)
Risks and expected recovery has been explained in detail. Alternative options have been explored, and in a shared-decision making fashion we have decided that this was the most appropriate procedure.
Method
NPO status confirmed. Grounding pad applied. Defibrillator pads applied. Continuous surface ECG, pulse oximetry, and blood pressure were monitored. Procedure was performed under general anesthesia, with anesthesia services.
Both groins were clipped, prepped with Chloraprep, and draped in sterile fashion. Time out was called. Local anesthesia administered with bupivacaine. The right and left femoral veins were accessed for catheter placement, using ultrasound guidance,
micro-puncture needle/wire, and modified seldinger technique. 3 sheaths were placed. The following catheters were used:
[ ] Tacticath SE (D/F Curve) ablation catheter
X Viewflex 9Fr ICE catheter
X Inquiry decapolar 6Fr diagnostic catheter
[ ] CRD Hex 6Fr
[ ] Arctic Front Advance Cryoballoon ([ ]28mm[ ]23mm)
[ ] Achieve Advance mapping catheter ([ ]15mm[ ]20mm)
X FlexCath Contour 10 Fr with PulseSelect PFA Catheter
X Advisor HD Grid Mapping Catheter, SE
[ ] Acuson AcuNav 8 Fr ICE catheter
[ ]Other: [ ]
Intracardiac ultrasound (ICE) was carefully advanced into the right atrium to guide sheath placement over a J-wire, catheter placement, guide trans-septal puncture, identify potential complications, identify anatomic structures and ensure proper
contact between ablation catheter and tissue.
Heparin was given prior to trans-septal puncture. Heparin was given to achieve and maintain a target ACT of 300-400 seconds throughout the procedure.
Trans-septal access was performed under ICE guidance. The trans-septal puncture was performed with a SafeSept wire through a Brockenbrough needle assembly through the steerable sheath. The wire was visualized as it entered the LSPV and system
advanced under ICE guidance and fluoroscopy into the LA. The Brockenbrough needle assembly, SafeSept wire and sheath dilator were removed under negative pressure. LA pressure was measured and recorded.
ICE and 3D mapping was performed to identify relevant cardiac structures. A careful 3D map was created to assess for regions of low-voltage and abnormal electrogram signals using HD grid mapping catheter and PulseSelect catheter. Additional mapping
was performed as outlined below.
Prior to ablation, glycopyrrolate was provided. PulseSelect catheter was advanced over J-wire to the ostium of each vein. Pulmonary vein isolation was performed with ostial and antral lesions in a circumferential manner. Contact was visualized via
EAM, ICE, fluoroscopy, and EGM signals. Following completion of ablation lesions, a post-ablation voltage/activation map was performed in sinus rhythm. Entrance and exit block were confirmed for each vein.
Catheter and sheath were removed from the left atrium and post-ablation intracardiac echo evaluation was consistent with pre-ablation with no changes and no pericardial effusion and there is no left atrial thrombus or left ventricle thrombus seen.
Electrophysiology study was performed, no inducible arrhythmias were noted. Hemostasis was obtained with manual pressure. Protamine was used for reversal.
Estimated Blood Loss
5 mL
Complications
None
Fluoroscopy: 2.1 minutes; 6.09 mGy; DAP 0.652
Baseline Intervals:
Rhythm: Sinus
NY: 138 ms
QRS: 106 ms
QT: 453 ms
QTc: 445 ms
A-A: 1035 ms
R-R: 1035 ms
Post-Procedure Intervals:
NY: 164 ms
QRS: 109 ms
QT: 414 ms
QTc: 446 ms
A-A: 861 ms
R-R: 861 ms
AVWB: 370 ms
AERP: 600/210 ms
Recommendations
- Bedrest with straight-leg precautions as ordered
- Anticipate same day discharge if patient meeting clinical metrics
- Resume home medications as indicated
- Ok to resume anticoagulation tonight if patient and groin sites stable
- PPI daily for 30 days
- Plan for follow-up in office in 3 months
Abarn Marie DO
Clinical [employer]
cc: Lito Johnson MD
[2024-04-16 08:42] LABS: ACT-LR - POC 252 Seconds (116-155)
[2024-04-16 08:59] LABS: ACT-LR - POC 289 Seconds (116-155)
[2024-04-16 09:18] LABS: ACT-LR - POC 327 Seconds (116-155)
[2024-04-16 09:46] LABS: ACT-LR - POC 348 Seconds (116-155)
[2024-04-16 10:05] LABS: ACT-LR - POC 223 Seconds (116-155)
[2024-04-16] MEDS: DILAUDID 0.5 MG IV (10:46)
[2024-04-16] MEDS: ZOFRAN 4 MG IV (12:58)
[2024-04-16] MEDS: TYLENOL 650 MG PO (13:53)
--- NOTE | 2024-04-16 14:27 | W.PN.UPDATE ---
Addendum entered and electronically signed by ANGELIA Shankar 04/16/24 15:33:
R fem site with small HT/bleed after ambulation and cough, manual pressure held for 10min by RN, site c/d/i, soft with small ecchymosis. BR for 30min the HOB 30deg, after 1 hour OOB ambulate. If groin stable plan for d/c home after 4pm.
Original Note:
Update Note
Progress Note Update
Pt seen post PFA. Right groin without ht/bleeding, non tender. Post EKG SB 50s, no acute changes. Resume eliquis today, continue tikosyn as before. Followup with Dr. Fraser as scheduled. Home later today if groin site/tele remain stable.
== END 2024-04-16 16:10 | disposition home or self-care (01) ==
LOC: CATH 06:02
PROVIDERS: ATTENDING PHYSICIAN Internal Medicine Cardiovascular Disease; FAMILY PHYSICIAN Internal Medicine
DX: I48.0 Paroxysmal atrial fibrillation (principal); R05.9 Cough, unspecified; J40 Bronchitis, not specified as acute or chronic; U09.9 Post COVID-19 condition, unspecified; I10 Essential (primary) hypertension; E78.2 Mixed hyperlipidemia; Z79.899 Other long term (current) drug therapy; Z79.01 Long term (current) use of anticoagulants; R53.83 Other fatigue; I48.92 Unspecified atrial flutter; K21.9 Gastro-esophageal reflux disease without esophagitis; Z79.51 Long term (current) use of inhaled steroids; M19.90 Unspecified osteoarthritis, unspecified site; Z85.46 Personal history of malignant neoplasm of prostate
CPT/HCPCS: C1732; C1894; C1733; C1769; C1766; 36415; 75572; 76937; 80053; 83735; 85025; 85347; 85610; 86850; 86900; 86901; 93005; 93656; Q9967

== ENCOUNTER 2024-04-17 11:04 | Emergency (ER) | payer OTHER, SELFPAY ==
[2024-04-17] VITALS (7 sets, daily range): BP systolic 113–141; BP diastolic 70–96; BMI 27.5
--- NOTE | 2024-04-17 12:54 | ED.GENMED ---
History of Present Illness
General
Chief Complaint: Headache
Source: patient and spouse
Time Seen by Provider: 04/17/24 12:35
History of Present Illness
History of Present Illness:
Patient is a 64-year-old male presents emergency department with complaints of a headache. He is feeling perfectly well when he went into the hospital to have an ablation performed yesterday morning. When he awoke from the procedure at
approximately 10:30 AM, he noted a bifrontal headache associated with nausea. He was given Dilaudid and felt better and went back to sleep. He awoke again with complaints of the same headache at approximately 2 PM he was given Tylenol and felt
marginally better. He describes the headache as bifrontal and also behind his eyes. In the past, he is experience headaches particular in the posterior occipital area that he attributes to his atrial fibrillation. Of note, patient has recently
been treated for asthmatic bronchitis and is on a prednisone taper of 10 mg. He did not have a dose yesterday as instructed by his doctors. He denies associated numbness, tingling, focal weakness, change in vision, change in speech, vomiting. He
is no longer nauseous. He does complain of a dry mouth. He denies chest pain, palpitations, dyspnea, or other complaints. Patient states he was up most of the night because of the symptoms. Of note, patient did have some bleeding from the
puncture site at the right femoral area postprocedure, but denies active bleeding since discharge.
Past History
Past History
ED Past Medical History: Arrthythmia, HTN and Hypercholesterolemia
ED Past Surgical History: Cardiac, Orthopedic (knee), Urological (prostatectomy) and Other (bilateral hernia repair)
Social History
Tobacco: Non-smoker
Alcohol: Occasional
Drug: None
Personal:
Living: with family
Phy Exam
Physical Exam
Physical Exam:
GENERAL: Alert , in no apparent distress, nontoxic
EYE: pupils equal and reactive, no photophobia, EOMI, no nystagmus
NECK: Supple, no significant adenopathy.
ENT: o/p clr, mm dry
CARDIAC: Regular rate and rhythm .
LUNGS: Clear breath sounds bilaterally, no acute respiratory distress, no wheezes/rales/rhonchi
ABDOMEN: Soft, without focal tenderness, no r/g, no cvat
NEUROLOGICAL: Alert and oriented, no focal neuro deficits, motor 5 out of 5, sensory intact, cranial nerves II through XII intact, [id number] normal
SKIN: Warm and dry, skin intact. Right femoral area with expected bruising, no redness warmth drainage bleeding or other abnormalities
MUSCULOSKELETAL: No edema, well perfused.
PSYCH: Normal and appropriate interaction.
Course
Orders/Labs/Results
Orders:
Orders
04/17/24 12:53
Electrocardiogram (*1) Stat
Reason for Study: Other
Other Reason for Exam: Headache
CT Head W/o Iv Contrast Urgent
Comment:
Reason For Exam: [place] (bifrontal) ondoac
Cardiac Monitoring- Treatment ONCE
EKG- Treatment ONCE
0.9% Sodium Chloride 1000 ml [Nss] 1,000 ml IV BOLUS
Diphenhydramine [Benadryl] 25 mg IV NOW STA
Metoclopramide [Reglan] 10 mg IV NOW STA
04/17/24 13:26
Complete Blood Count/No Diff Urgent
Comprehensive Metabolic Panel Urgent
Abnormal Lab Results
04/17/24
13:26
WBC 12.5 H 10^3/uL
(4.8-10.8)
RBC 4.50 L 10^6/uL
(4.70-6.10)
Sodium 134 L mmol/L
(135-145)
Glucose 123 H mg/dl
(70-99)
04/17/24 13:26
04/17/24 13:26
Vital Signs
Initial and Last Documented VS:
Initial Vital Signs
Temp Pulse Resp BP Pulse Ox
98.0 F 51 20 136/96 95
04/17/24 11:22 04/17/24 11:22 04/17/24 11:22 04/17/24 11:22 04/17/24 11:22
Last Documented Vital Signs
Temp Pulse Resp BP Pulse Ox
98.0 F 56 18 120/70 96
04/17/24 11:22 04/17/24 15:00 04/17/24 15:00 04/17/24 15:19 04/17/24 15:00
*Critical Care Note
Total Time (30-74mins, 75-104mins- exclusive of procedures): Not Applicable
Update Note
Update Note:
Patient presents to the Emergency Department with headache
Number and Complexity of Problems Addressed at the Encounter
� Chronic conditions affecting care:
� Acute Exacerbation and/or Progression of Chronic Illness:
� Differential Diagnosis includes: But not limited to tension headache, medication/anesthesia related events, and migraine, etc. etc.
Amount and/or Complexity of Data to be Reviewed and Analyzed
� I performed an independent evaluation of and my interpretation is:
EKG:
CT:read by rob caldwell
Xrays:
Laboratory Studies:nonspecific leukocytosis
Other:
� Review of other/old records reveals:
� Clinical information was obtained by an independent historian: who is at bedside, paperwork from patient's visit yesterday for ablation.
� Prescriptions/Medications Considered but not given:
� Further testing considered but not performed:
Risk of Complications and/or Morbidity or Mortality of Patient Management
� Social determinants of health affecting care:
� Discussion with other providers (PCP, Hospitalists, Consultants, etc):
� Escalation of care including admission/observation vs risk of discharge considered: Several reassessments, 3:24 pm, pt feels much better, would like to go home. I re examined groin, no swelling/pain/bleeding. TT sent to
[facility] to make him aware. No new sxs, no 'red flag' findings on hx/phys/reassessment to raise concern for emergent dz. D/wp t import of f/ua nd reasons to rted.
ED Attending Note
-
Portions of this chart may have been created with voice recognition software.� Occasional wrong word or��sound alike� substitutions may have occurred due to the inherent limitations of voice recognition software.
Discharge Plan
Departure
Patient Disposition: Home (Routine Discharge)
Date of Disposition: 04/17/24
Time of Disposition: 15:26
Patient with high blood pressure during this ER visit?: Yes
Condition: Good
Discharge Problem:
Headache
Instructions: Headache, Adult (DC), BLOOD PRESSURE
Prescriptions:
No Action
atorvastatin [Lipitor] 40 MG tablet
40 mg PO HS
amlodipine 5 mg tablet
5 mg PO HS
Eliquis 5 mg Tablet
5 mg PO BID 30 Days Qty: 60 0RF
dofetilide 250 mcg Capsule
250 mcg PO Q12 30 Days Qty: 60 0RF
fluticasone propionate 50 mcg/actuation spray,suspension
2 spray intranasal HS
Arnuity Ellipta 100 mcg/actuation blister with device
1 inh inhalation HS
metoprolol succinate 25 mg tablet extended release 24 hr
25 mg PO BID
omeprazole 40 mg capsule,delayed release(DR/EC)
40 mg PO DAILY
montelukast 10 mg tablet
10 mg PO HS 30 Days Qty: 30 3RF
prednisone 10 mg Tablet
10 mg PO DIRECTED 14 Days Qty: 21 0RF
Rx Instructions:
WEEK ONE: 2 TABLETS ONCE A DAY. WEEK TWO: 1 TABLET ONCE A DAY.
Referrals:
Lito Johnson MD [Family Provider] -
Activity Restrictions/Additional Instructions:
PLEASE SEE YOUR DOCTOR IN CLOSE FOLLOW UP. IF YOU DEVELOP FEVER, CHILLS, CHEST PAIN, TROUBLE BREATHING, DIZZINESS, NEW/WORSENING HEADACHE, NUMBNESS, WEAKNESS, OR OTHER WORRISMOE SIGNS, GO TO THE ER IMMEDIATELY!
Interventions
Interventions:
*Risk Screen - Suicide Last Done: 04/17/24 11:39
*General Assessment Last Done: 04/17/24 11:39
*Neglect/Abuse Screening Last Done: 04/17/24 11:39
ED- Fall Risk Assessment Last Done: 04/17/24 11:46
*ED COVID-19 Vaccine History Last Done: 04/17/24 11:39
ED- Neurological Assessment Last Done: 04/17/24 11:46
Discharge Date and Time
Print Language: INDONESIAN
[2024-04-17] MEDS: REGLAN 10 MG IV (13:21)
[2024-04-17] MEDS: NSS 1000 IV (13:21)
[2024-04-17] MEDS: BENADRYL 25 MG IV (13:22)
[2024-04-17 13:42] LABS: Hematocrit 40.1 % (39.0-52.0); Hemoglobin 13.8 g/dL (13.0-18.0); Mean Corp Hgb Conc. 34.4 g/dL (33.0-37.0); Mean Corpuscular Hgb 30.7 pg (27.0-31.0); Mean Corpuscular Volume 89.1 fL (80.0-94.0); Mean Platelet Volume 9.2 fL (7.4-10.4); Platelet Count 229 10^3/uL (130-400); Red Cell Dist. Width 12.6 % (11.5-14.5); White Blood Cell Count 12.5 10^3/uL (4.8-10.8)
[2024-04-17 13:58] LABS: ALT (SGPT) 40 U/L (0-50); AST (SGOT) 46 U/L (17-59); Albumin 3.9 g/dl (3.5-5.0); Alkaline Phosphatase 116 U/L (38-126); Blood Urea Nitrogen 18 mg/dl (9-20); Calcium 9.1 mg/dl (8.4-10.2); Carbon Dioxide 24 mmol/L (22-30); Chloride 104 mmol/L (98-107); Estimated Creatinine Clearance 96 ml/min; Glucose 123 mg/dl (70-99); Sodium 134 mmol/L (135-145); Total Bilirubin 0.7 mg/dl (0.2-1.3); Total Protein 6.6 g/dl (6.3-8.2); eGFR > 60.00
== END 2024-04-17 15:46 | disposition home or self-care (01) ==
LOC: EMR 11:04
PROVIDERS: EMERGENCY PHYSICIAN Emergency Medicine; FAMILY PHYSICIAN Internal Medicine
DX: R51.9 Headache, unspecified (principal); R11.0 Nausea; R68.2 Dry mouth, unspecified; I10 Essential (primary) hypertension; I48.91 Unspecified atrial fibrillation; E78.00 Pure hypercholesterolemia, unspecified; Z98.890 Other specified postprocedural states; Z90.79 Acquired absence of other genital organ(s); Z79.01 Long term (current) use of anticoagulants
CPT/HCPCS: 99284; 96374; 96375; 96361; 70450; 80053; 85027; 93005

== ENCOUNTER → 2024-05-14 12:00 | Outpatient (REF) | payer OTHER, SELFPAY | LOC: DHSLP 12:00 | PROVIDERS: ATTENDING PHYSICIAN Internal Medicine Critical Care Medicine; FAMILY PHYSICIAN Internal Medicine | DX: G47.30 Sleep apnea, unspecified (principal); R06.83 Snoring | CPT/HCPCS: 95800 ==

== ENCOUNTER 2024-08-12 06:24 | Day surgery (SDC) | payer OTHER, SELFPAY ==
[2024-07-31 10:11] LABS: Blood Urea Nitrogen 16 mg/dl (9-20); Calcium 9.7 mg/dl (8.4-10.2); Carbon Dioxide 24 mmol/L (22-30); Chloride 104 mmol/L (98-107); Glucose 96 mg/dl (70-99); Potassium 4.8 mmol/L (3.5-5.1); Sodium 142 mmol/L (135-145); eGFR > 60.00
[2024-07-31 12:38] VITALS: BMI 25.5
[2024-08-12 09:59] VITALS: BMI 25.5
[2024-08-12 10:07] VITALS: BP 135/78
[2024-08-12] MEDS: TRANSDERM-SCOP 1 PATCH TRANSDERM (10:32)
[2024-08-12] MEDS: NORMOSOL-R/PLASMALYTE-A 1000 IV (10:33)
[2024-08-12 12:41] VITALS: BP 135/78; BP 146/87
[2024-08-12] MEDS: ZOFRAN 4 MG IV (13:02)
[2024-08-12 13:30] VITALS: BP 139/85
[2024-08-12 14:00] VITALS: BP 150/93
[2024-08-12] MEDS: TYLENOL 650 MG PO (14:00)
[2024-08-12 14:30] VITALS: BP 131/70
== END 2024-08-12 15:12 | disposition home or self-care (01) ==
LOC: SDS 06:24
PROVIDERS: ATTENDING PHYSICIAN Otolaryngology; FAMILY PHYSICIAN Internal Medicine
DX: J32.9 Chronic sinusitis, unspecified (principal)
CPT/HCPCS: 31276; 31267; 31259; 88304; 88311; 88312; 36415; 80048; 87070; 87147; 87205; 93005

== ENCOUNTER 2025-04-16 12:12 | Day surgery (SDC) | payer OTHER, SELFPAY ==
--- NOTE | 2025-04-16 14:11 | ITS.CL.IMPLP ---
Venipuncturist - Implant Loop
Implant Loop
Procedure Report:
Primary Physician: Dr Lito Roman
Procedure Date: 04/16/2025
Procedure: Placement of a loop recorder.
History/Indication:
1. See office H&P for complete history.
2. Patient is a pleasant 65-year-old male with a past medical history significant for paroxysmal atrial fibrillation, paroxysmal atrial flutter, dyslipidemia, hypertension who presents for ILR implant for longitudinal surveillance. Patient had
shared decision making discussion on discontinuation of oral anticoagulation and longitudinal monitoring as patient has not experienced recurrence of atrial arrhythmias since ablation.
Method:
After informed consent was obtained, the patient was brought to the EP laboratory holding area in a fasting, non-sedated state. Peripheral access was established. The left chest was prepared and draped in a sterile fashion. A 'time out' was
called. Local anesthesia was injected in the subcutaneous tissue. The ILR was injected under the skin. Topical skin adhesive was applied. Following the procedure, the patient was taken to the recovery area in stable condition. No complications
were noted.
Device Data:
[employer]; Model# LINQII; Serial# [id number]
Conclusion:
Successful placement of a loop recorder.
Recommendations:
1. Follow-up will be arranged in the [facility] in 7-10 days for wound check.
2. Routine ILR care.
Abran Marie DO, [facility], [facility]
Clinical Cardiac Web Methods Developer
cc: Dr Cindy Roman
== END 2025-04-16 14:50 | disposition home or self-care (01) ==
LOC: CATH 12:12
PROVIDERS: ATTENDING PHYSICIAN Internal Medicine Cardiovascular Disease; FAMILY PHYSICIAN Internal Medicine
DX: Z09 Encounter for follow-up examination after completed treatment for conditions other than malignant neoplasm (principal); I48.0 Paroxysmal atrial fibrillation; E78.5 Hyperlipidemia, unspecified; I10 Essential (primary) hypertension; I48.92 Unspecified atrial flutter
CPT/HCPCS: 33285; C1764